=== PATIENT | male | born 1970 | race Caucasian/White ===

== ENCOUNTER 2017-06-22 08:19 | Emergency (ER) | payer MEDICARE, OTHER ==
[~2017-06-22] VITALS: Ht 172.7 cm; Wt 77.3 kg
[~2017-06-22 08:19] MED LIST: ATARAX50 MG PO; BLOOD PRESSURE MED; CHOLESTEROL MED; COZAAR 50MG50 MG/TAB PO; DOXYCYCLINE 10100 MG PO; HCTZ12.5TAB; LEVAQUIN 5500 MG/TA1 PO; NORCO 325 MG-51 TAB PO; PRILOSEC 20MG20 MG PO; PROPRANOLOL60 MG PO; RT ADVAIR 228 DISKUS IH; ZOCOR 40MG40 MG PO; ZOLOFT; ZOLOFT 100MG100 MG PO
[2017-06-22 08:25] VITALS: TEMP 98.5
[2017-06-22] MEDS ORDERED: COZAAR100 MG PO (08:31)
[2017-06-22] MEDS ORDERED: PRILOSEC 20MG20 MG PO (08:31)
[2017-06-22] MEDS ORDERED: MULTI VITAMINS1 TAB PO (08:32)
[2017-06-22] MEDS ORDERED: ALLEGRA 60MG TA60 MG PO (08:33)
[2017-06-22] MEDS ORDERED: LIPITOR 80MG80 MG PO (08:33)
[2017-06-22 09:16] LABS: BASO # 0.1 (0.0-0.2); BASO % 0.6 % (0.0-2.0); EOS % 0.1 % (0-4.0); GRAN # 6.8 (1.4-6.5); GRAN % 78.9 % (42.2-75.2); HEMOGLOBIN 14.4 g/dl (13.5-18.0); LYMPH # 1.2 (1.2-3.4); LYMPH % 13.7 % (20.0-51.0); MEAN CELL VOLUME 95 fl (80.0-100.0); MEAN CORPUSCULAR HEMOGLOBIN 33 pg (27.0-31.0); MEAN CORPUSCULAR HGB CONC 35 g/dl (33.0-37.0); MONO # 0.6 (0.1-0.6); MONO % 6.5 % (1.7-9.3); PLATELET COUNT 168 K/mm3 (130-400); RED BLOOD COUNT 4.33 M/mm3 (4.20-5.60); WHITE BLOOD COUNT 8.6 K/mm3 (4.8-10.8)
[2017-06-22 09:33] LABS: ADJUSTED CALCIUM 8.9 mg/dL (8.4-10.2); ALANINE AMINOTRANSFERASE 99 U/L (21-72); ALBUMIN 5.2 gm/dL (3.5-5.0); ALKALINE PHOSPHATASE 92 U/L (50-136); ANION GAP 18 mmol/L (7-16); BILIRUBIN,TOTAL 1.3 mg/dL (0.0-1.0); BLOOD UREA NITROGEN 3 mg/dL (9-20); CALCIUM 9.9 mg/dL (8.4-10.2); CARBON DIOXIDE 18 mmol/L (22-30); CHLORIDE 100 mmol/L (98-107); CREATININE, serum 0.79 mg/dL (0.66-1.25); GLUCOSE 116 mg/dL (74-106); LIPASE 136 U/L (23-300); POTASSIUM 3.2 mmol/L (3.4-5.0); SALICYLATE 1.8 mg/dL; SODIUM 136 mmol/L (137-145); TOTAL PROTEIN 8.1 gm/dL (6.4-8.2)
[2017-06-22 09:35] LABS: ALCOHOL(ethanol),MEDICAL < 10 mg/dL; C-REACTIVE PROTEIN < 0.5 mg/dL (0.0-0.9)
[2017-06-22 10:09] LABS: COLLECTION METHOD CLEAN CATCH
[2017-06-22 10:22] LABS: PH 7 (5-8); SQUAMOUS EPITHELIAL None Seen /hpf; URINE APPEARANCE Clear; URINE BACTERIA Rare /hpf; URINE BILIRUBIN Negative (NEGATIVE); URINE BLOOD Negative (NEGATIVE); URINE COLOR Yellow; URINE GLUCOSE Negative (NEGATIVE); URINE KETONE 2+ (NEGATIVE); URINE LEUKOCYTE ESTERASE 1+ (NEGATIVE); URINE PROTEIN(semi-quant) Negative (NEGATIVE); URINE RBC 0-2 /hpf; URINE UROBILINOGEN Negative (NEGATIVE); URINE WBC 0-2 /hpf
[2017-06-22 10:27] LABS: AMPHETAMINE URINE NEGATIVE; BARBITURATES URINE NEGATIVE; BENZODIAZEPINES URINE NEGATIVE; BUPRENORPHINE URINE NEGATIVE; METHADONE URINE NEGATIVE; OPIATES URINE NEGATIVE; OXYCODONE URINE NEGATIVE; PHENCYCLIDINE URINE NEGATIVE; PROPOXYPHENE URINE NEGATIVE; THC CANNABINOIDS URINE NEGATIVE; TRICYCLIC ANTIDEPRESS URINE NEGATIVE
[2017-06-22 13:27] VITALS: BP 145/94; PULSE 122
== END 2017-06-22 13:29 ==
LOC: COL.ER 08:19
PROVIDERS: Family Medicine
DX: F10.239 Alcohol dependence with withdrawal, unspecified (principal); I10 Essential (primary) hypertension
CPT/HCPCS: J2060; J2405; J3411; J7030

== ENCOUNTER 2017-07-19 13:06 | Emergency (ER) | payer MEDICARE, OTHER ==
[~2017-07-19] VITALS: Ht 172.7 cm; Wt 77.3 kg
[~2017-07-19 13:06] MED LIST changes: +ALLEGRA 60MG TA60 MG PO; +COZAAR100 MG PO; +LIPITOR 80MG80 MG PO; +MULTI VITAMINS1 TAB PO
[2017-07-19] MEDS ORDERED: APRESOLINE 25MG25 MG PO (13:50)
[2017-07-19] MEDS ORDERED: LEXAPRO 10MG10 MG PO (13:50)
[2017-07-19] MEDS ORDERED: INDERAL40 MG PO (13:51)
[2017-07-19] MEDS ORDERED: NORVASC 10MG10 MG PO (13:51)
[2017-07-19] MEDS ORDERED: [UNRECOGNIZED DRUG - REMARK] PO (13:52)
[2017-07-19] MEDS ORDERED: PRIL40 PO (13:52)
[2017-07-19] MEDS ORDERED: NATURE'S BLEND100 M2 PO (13:53)
[2017-07-19] MEDS ORDERED: COZAAR 50MG50 MG/TAB PO (13:53)
[2017-07-19] MEDS ORDERED: FOLIC ACID 11 MG/TA1 PO (13:53)
[2017-07-19] MEDS ORDERED: MULTIPLE VITAMI1 TA5 PO (13:54)
[2017-07-19 14:04] LABS: INFLUENZA A NEGATIVE; INFLUENZA B NEGATIVE
[2017-07-19 14:17] LABS: BASO # 0.1 (0.0-0.2); EOS # 2.1 (0.0-0.7); EOS % 15.2 % (0-4.0); GRAN # 8.6 (1.4-6.5); GRAN % 62.2 % (42.2-75.2); HEMATOCRIT 38.4 % (42.0-52.0); HEMOGLOBIN 13.6 g/dl (13.5-18.0); LYMPH % 14.1 % (20.0-51.0); MEAN CELL VOLUME 93 fl (80.0-100.0); MEAN CORPUSCULAR HEMOGLOBIN 33 pg (27.0-31.0); MEAN CORPUSCULAR HGB CONC 35 g/dl (33.0-37.0); MEAN PLATELET VOLUME 9.5 fl (7.4-10.4); MONO % 6.9 % (1.7-9.3); PLATELET COUNT 283 K/mm3 (130-400); RED BLOOD COUNT 4.13 M/mm3 (4.20-5.60); REDCELL DISTRIBUTION WIDTH-CV 11.9 % (11.5-14.5)
[2017-07-19 14:30] LABS: ALBUMIN 4.2 gm/dL (3.5-5.0); BILIRUBIN,TOTAL 0.8 mg/dL (0.0-1.0); C-REACTIVE PROTEIN 2.7 mg/dL (0.0-0.9); CALCIUM 9.9 mg/dL (8.4-10.2); CREATININE, serum 0.61 mg/dL (0.66-1.25); POTASSIUM 3.8 mmol/L (3.4-5.0); TOTAL PROTEIN 7.6 gm/dL (6.4-8.2)
[2017-07-19 15:45] LABS: COLLECTION METHOD CLEAN CATCH
[2017-07-19 15:50] LABS: PH 8 (5-8); SQUAMOUS EPITHELIAL None Seen /hpf; URINE APPEARANCE Clear; URINE BACTERIA None Seen /hpf; URINE BILIRUBIN Negative (NEGATIVE); URINE BLOOD Negative (NEGATIVE); URINE COLOR Straw; URINE GLUCOSE Negative (NEGATIVE); URINE KETONE Negative (NEGATIVE); URINE LEUKOCYTE ESTERASE Negative (NEGATIVE); URINE NITRATE Negative (NEGATIVE); URINE PROTEIN(semi-quant) Negative (NEGATIVE); URINE RBC None Seen /hpf; URINE UROBILINOGEN Negative (NEGATIVE)
[2017-07-19] MEDS ORDERED: DOXYCYCLINE 10100 MG PO (16:20)
[2017-07-19] MEDS ORDERED: NORCO 325 MG-51 TAB PO (16:20)
[2017-07-19 16:39] VITALS: BP 127/93; PULSE 68; TEMP 98.7
== END 2017-07-19 16:40 | disposition home or self-care (01) ==
LOC: COL.ER 13:06
PROVIDERS: Nurse Practitioner
DX: M79.1 Myalgia (principal); R51 Headache; I10 Essential (primary) hypertension; F32.9 Major depressive disorder, single episode, unspecified; F41.9 Anxiety disorder, unspecified; F17.210 Nicotine dependence, cigarettes, uncomplicated; Z86.13 Personal history of malaria
CPT/HCPCS: J1170; J7030

== ENCOUNTER 2017-11-23 20:00 | Emergency (ER) | payer MEDICARE, OTHER ==
[~2017-11-23 20:00] MED LIST changes: +APRESOLINE 25MG25 MG PO; +FOLIC ACID 11 MG/TA1 PO; +INDERAL40 MG PO; +LEXAPRO 10MG10 MG PO; +MULTIPLE VITAMI1 TA5 PO; +NATURE'S BLEND100 M2 PO; +NORVASC 10MG10 MG PO; +PRIL40 PO; +[UNRECOGNIZED DRUG - REMARK] PO
[2017-11-23 20:12] VITALS: TEMP 97.1
[2017-11-23 21:52] LABS: BASO # 0.1 (0.0-0.2); BASO % 1.1 % (0.0-2.0); EOS # 0.2 (0.0-0.7); EOS % 2.8 % (0-4.0); GRAN # 2.8 (1.4-6.5); GRAN % 43.3 % (42.2-75.2); LYMPH # 2.8 (1.2-3.4); LYMPH % 43.9 % (20.0-51.0); MEAN CELL VOLUME 96 fl (80.0-100.0); MEAN CORPUSCULAR HEMOGLOBIN 34 pg (27.0-31.0); MEAN CORPUSCULAR HGB CONC 36 g/dl (33.0-37.0); MEAN PLATELET VOLUME 9.9 fl (7.4-10.4); MONO # 0.6 (0.1-0.6); MONO % 8.6 % (1.7-9.3); PLATELET COUNT 191 K/mm3 (130-400); RED BLOOD COUNT 3.81 M/mm3 (4.20-5.60); REDCELL DISTRIBUTION WIDTH-CV 12.5 % (11.5-14.5)
[2017-11-23 21:54] LABS: HEMATOCRIT 36.6 % (42.0-52.0)
[2017-11-23 22:02] LABS: ALANINE AMINOTRANSFERASE 190 U/L (21-72); ALBUMIN 4.3 gm/dL (3.5-5.0); ALKALINE PHOSPHATASE 104 U/L (50-136); ANION GAP 19 mmol/L (7-16); AST,SGOT 326 U/L (15-37); BILIRUBIN,TOTAL 0.8 mg/dL (0.0-1.0); BLOOD UREA NITROGEN 5 mg/dL (9-20); CALCIUM 9.4 mg/dL (8.4-10.2); CARBON DIOXIDE 21 mmol/L (22-30); CHLORIDE 103 mmol/L (98-107); CREATININE, serum 0.68 mg/dL (0.66-1.25); GLUCOSE 78 mg/dL (74-106); LIPASE 230 U/L (23-300); POTASSIUM 3.4 mmol/L (3.4-5.0); SODIUM 142 mmol/L (137-145)
[2017-11-23 22:04] LABS: C-REACTIVE PROTEIN < 0.5 mg/dL (0.0-0.9)
[2017-11-23 22:05] LABS: COLLECTION METHOD CLEAN CATCH
[2017-11-23 22:13] LABS: PH 6 (5-8); SQUAMOUS EPITHELIAL None Seen /hpf; URINE APPEARANCE Clear; URINE BACTERIA None Seen /hpf; URINE BILIRUBIN Negative (NEGATIVE); URINE BLOOD Negative (NEGATIVE); URINE COLOR Yellow; URINE GLUCOSE Negative (NEGATIVE); URINE KETONE Trace (NEGATIVE); URINE LEUKOCYTE ESTERASE Negative (NEGATIVE); URINE NITRATE Negative (NEGATIVE); URINE PROTEIN(semi-quant) Negative (NEGATIVE); URINE RBC 0-2 /hpf
[2017-11-24 00:48] VITALS: BP 133/94; PULSE 86
== END 2017-11-24 00:20 | disposition home or self-care (01) ==
LOC: COL.ER 20:00
PROVIDERS: Emergency Medicine
DX: R10.30 Lower abdominal pain, unspecified (principal); R39.198 Other difficulties with micturition; I10 Essential (primary) hypertension; K21.9 Gastro-esophageal reflux disease without esophagitis; Z88.8 Allergy status to other drugs, medicaments and biological substances
CPT/HCPCS: J1170; J2270; J2405; J7030; Q9967

== ENCOUNTER 2017-12-10 04:09 | Emergency (ER) | payer MEDICARE, OTHER ==
[~2017-12-10] VITALS: Ht 172.7 cm; Wt 75.5 kg
[2017-12-10 04:15] VITALS: TEMP 97
[2017-12-10] MEDS ORDERED: BACTRIM DS 8001 TAB PO (04:24)
[2017-12-10 04:52] LABS: BASO # 0.1 (0.0-0.2); BASO % 1.5 % (0.0-2.0); EOS # 0.1 (0.0-0.7); EOS % 2.5 % (0-4.0); GRAN # 1.6 (1.4-6.5); GRAN % 40.8 % (42.2-75.2); HEMATOCRIT 37.1 % (42.0-52.0); HEMOGLOBIN 12.8 g/dl (13.5-18.0); LYMPH # 1.8 (1.2-3.4); LYMPH % 44.3 % (20.0-51.0); MEAN CELL VOLUME 98 fl (80.0-100.0); MEAN CORPUSCULAR HEMOGLOBIN 34 pg (27.0-31.0); MEAN CORPUSCULAR HGB CONC 35 g/dl (33.0-37.0); MEAN PLATELET VOLUME 9.5 fl (7.4-10.4); MONO # 0.4 (0.1-0.6); MONO % 10.7 % (1.7-9.3); PLATELET COUNT 157 K/mm3 (130-400); RED BLOOD COUNT 3.77 M/mm3 (4.20-5.60); REDCELL DISTRIBUTION WIDTH-CV 12.7 % (11.5-14.5)
[2017-12-10 05:08] LABS: ALANINE AMINOTRANSFERASE 156 U/L (21-72); ALBUMIN 4.3 gm/dL (3.5-5.0); ALKALINE PHOSPHATASE 113 U/L (50-136); ANION GAP 21 mmol/L (7-16); AST,SGOT 221 U/L (15-37); BILIRUBIN,TOTAL 1.2 mg/dL (0.0-1.0); BLOOD UREA NITROGEN 6 mg/dL (9-20); CALCIUM 10.1 mg/dL (8.4-10.2); CARBON DIOXIDE 17 mmol/L (22-30); CHLORIDE 100 mmol/L (98-107); CREATININE, serum 0.76 mg/dL (0.66-1.25); GLUCOSE 108 mg/dL (74-106); POTASSIUM 3.1 mmol/L (3.4-5.0); SODIUM 139 mmol/L (137-145); TOTAL PROTEIN 7.7 gm/dL (6.4-8.2)
[2017-12-10 05:30] LABS: C-REACTIVE PROTEIN < 0.5 mg/dL (0.0-0.9)
[2017-12-10 05:37] LABS: COLLECTION METHOD CLEAN CATCH
[2017-12-10 05:43] LABS: MUCOUS Present /lpf; PH 5 (5-8); SQUAMOUS EPITHELIAL 0-2 /hpf; URINE APPEARANCE Clear; URINE BACTERIA None Seen /hpf; URINE BILIRUBIN Negative (NEGATIVE); URINE BLOOD Negative (NEGATIVE); URINE COLOR Yellow; URINE GLUCOSE Negative (NEGATIVE); URINE KETONE 1+ (NEGATIVE); URINE LEUKOCYTE ESTERASE Negative (NEGATIVE); URINE NITRATE Negative (NEGATIVE); URINE PROTEIN(semi-quant) 1+ (NEGATIVE); URINE RBC 0-2 /hpf
[2017-12-10] MEDS ORDERED: CIPRO 500MG TA500 MG PO (05:53)
[2017-12-10 06:10] VITALS: BP 147/101; PULSE 83
== END 2017-12-10 06:10 | disposition home or self-care (01) ==
LOC: COL.ER 04:09
PROVIDERS: Family Medicine
DX: N41.0 Acute prostatitis (principal); E86.0 Dehydration; I10 Essential (primary) hypertension
CPT/HCPCS: J1885; J7030

== ENCOUNTER 2018-01-29 13:33 | Emergency (ER) | payer MEDICARE, OTHER ==
[~2018-01-29] VITALS: Ht 172.7 cm; Wt 72.7 kg
[~2018-01-29 13:33] MED LIST changes: +BACTRIM DS 8001 TAB PO; +CIPRO 500MG TA500 MG PO
[2018-01-29 13:35] VITALS: TEMP 97.6
[2018-01-29] MEDS ORDERED: PROSCAR 5MG5 MG PO (13:55)
[2018-01-29] MEDS ORDERED: FLOMAX 0.40.4 MG/CAP PO (13:56)
[2018-01-29 14:31] LABS: BASO # 0.1 (0.0-0.2); BASO % 1.4 % (0.0-2.0); EOS # 0.1 (0.0-0.7); EOS % 1.9 % (0-4.0); GRAN # 3.2 (1.4-6.5); GRAN % 54.2 % (42.2-75.2); HEMATOCRIT 37.7 % (42.0-52.0); HEMOGLOBIN 13.1 g/dl (13.5-18.0); LYMPH # 1.8 (1.2-3.4); LYMPH % 30.5 % (20.0-51.0); MEAN CELL VOLUME 97 fl (80.0-100.0); MEAN CORPUSCULAR HEMOGLOBIN 34 pg (27.0-31.0); MEAN CORPUSCULAR HGB CONC 35 g/dl (33.0-37.0); MONO # 0.7 (0.1-0.6); MONO % 11.3 % (1.7-9.3); PLATELET COUNT 207 K/mm3 (130-400); RED BLOOD COUNT 3.89 M/mm3 (4.20-5.60); REDCELL DISTRIBUTION WIDTH-CV 12.4 % (11.5-14.5)
[2018-01-29 14:54] LABS: TRICYCLIC ANTIDEPRESS URINE NEGATIVE
[2018-01-29 15:13] LABS: ALBUMIN 3.6 gm/dL (3.5-5.0); BILIRUBIN,TOTAL 0.9 mg/dL (0.0-1.0); CREATININE, serum 0.58 mg/dL (0.66-1.25); TOTAL PROTEIN 6.7 gm/dL (6.4-8.2)
[2018-01-29 15:31] LABS: POTASSIUM 2.6 mmol/L (3.4-5.0)
[2018-01-29] MEDS ORDERED: K-TAB20 PO (15:55)
[2018-01-29 16:35] VITALS: BP 102/75; PULSE 91
== END 2018-01-29 16:37 | disposition home or self-care (01) ==
LOC: COL.ER 13:33
PROVIDERS: Nurse Practitioner Primary Care
DX: S09.90XA Unspecified injury of head, initial encounter (principal); F10.229 Alcohol dependence with intoxication, unspecified; E87.6 Hypokalemia; K70.10 Alcoholic hepatitis without ascites; I10 Essential (primary) hypertension; F17.210 Nicotine dependence, cigarettes, uncomplicated; K29.60 Other gastritis without bleeding; W18.39XA Other fall on same level, initial encounter; Y90.7 Blood alcohol level of 200-239 mg/100 ml; Y92.009 Unspecified place in unspecified non-institutional (private) residence as the place of occurrence of the external cause

== ENCOUNTER → 2018-04-20 | Outpatient (CLI) | payer MEDICARE, OTHER ==
[~2018-04-20] MED LIST changes: +ATIVAN 1MG T1 MG/TAB PO; +COZAAR 25MG25 MG/TAB PO; +FLOMAX 0.40.4 MG/CAP PO; +K-TAB20 PO; +PROSCAR 5MG5 MG PO; +WELLBUTRIN XL150 MG PO
== END ==
LOC: COL.RAD 13:53
DX: M54.41 Lumbago with sciatica, right side (principal)

== ENCOUNTER 2018-04-21 00:03 | Emergency (ER) | payer MEDICARE, OTHER ==
[~2018-04-21] VITALS: Ht 68 cm; Wt 84.5 kg
[~2018-04-21 00:03] MED LIST changes: -ATIVAN 1MG T1 MG/TAB PO; -COZAAR 25MG25 MG/TAB PO; -WELLBUTRIN XL150 MG PO
[2018-04-21 00:12] VITALS: BP 149/109; TEMP 98
[2018-04-21] MEDS ORDERED: LIPITOR 80MG80 MG PO (00:21)
[2018-04-21] MEDS ORDERED: COZAAR 25MG25 MG/TAB PO (00:22)
[2018-04-21] MEDS ORDERED: ATIVAN 1MG T1 MG/TAB PO (00:22)
[2018-04-21] MEDS ORDERED: WELLBUTRIN XL150 MG PO (00:23)
[2018-04-21 01:12] LABS: BASO # 0.1 (0.0-0.2); EOS # 0.1 (0.0-0.7); EOS % 0.5 % (0-4.0); GRAN % 56.1 % (42.2-75.2); HEMATOCRIT 43.8 % (42.0-52.0); HEMOGLOBIN 15.5 g/dl (13.5-18.0); LYMPH # 3.9 (1.2-3.4); LYMPH % 36.1 % (20.0-51.0); MEAN CELL VOLUME 88 fl (80.0-100.0); MEAN CORPUSCULAR HEMOGLOBIN 31 pg (27.0-31.0); MEAN CORPUSCULAR HGB CONC 35 g/dl (33.0-37.0); MEAN PLATELET VOLUME 8.7 fl (7.4-10.4); MONO # 0.6 (0.1-0.6); MONO % 5.9 % (1.7-9.3); PLATELET COUNT 253 K/mm3 (130-400); REDCELL DISTRIBUTION WIDTH-CV 11.8 % (11.5-14.5)
[2018-04-21 01:19] LABS: PROTHROMBIN TIME 11.1 SECONDS (9.7-12.8)
[2018-04-21 01:24] LABS: ALANINE AMINOTRANSFERASE 51 U/L (21-72); ALBUMIN 4.7 gm/dL (3.5-5.0); ALCOHOL(ethanol),MEDICAL 284 mg/dL; ALKALINE PHOSPHATASE 76 U/L (50-136); ANION GAP 16 mmol/L (7-16); AST,SGOT 68 U/L (15-37); BILIRUBIN,TOTAL 0.5 mg/dL (0.0-1.0); BLOOD UREA NITROGEN 9 mg/dL (9-20); CALCIUM 9.3 mg/dL (8.4-10.2); CARBON DIOXIDE 21 mmol/L (22-30); CHLORIDE 102 mmol/L (98-107); CREATININE, serum 0.68 mg/dL (0.66-1.25); GLUCOSE 89 mg/dL (74-106); POTASSIUM 3.9 mmol/L (3.4-5.0); SODIUM 139 mmol/L (137-145); TOTAL PROTEIN 8.4 gm/dL (6.4-8.2)
[2018-04-21 01:34] LABS: TROPONIN-I < 0.012 ng/mL (0.000-0.034)
[2018-04-21 04:11] VITALS: PULSE 120
== END 2018-04-21 04:36 | disposition home or self-care (01) ==
LOC: COL.ER 00:03
PROVIDERS: Emergency Medicine
DX: F10.229 Alcohol dependence with intoxication, unspecified (principal); F17.210 Nicotine dependence, cigarettes, uncomplicated; I10 Essential (primary) hypertension; F32.9 Major depressive disorder, single episode, unspecified; F43.10 Post-traumatic stress disorder, unspecified; F41.9 Anxiety disorder, unspecified; Y90.8 Blood alcohol level of 240 mg/100 ml or more

== ENCOUNTER 2018-08-13 10:15 | Outpatient (RCR) | payer MEDICARE, OTHER ==
[~2018-08-13 10:15] MED LIST changes: +ATIVAN 1MG T1 MG/TAB PO; +COZAAR 25MG25 MG/TAB PO; +WELLBUTRIN XL150 MG PO
== END 2018-08-15 | disposition home or self-care (01) ==
LOC: MKS.ESL.PT
DX: M54.41 Lumbago with sciatica, right side (principal); M47.9 Spondylosis, unspecified
CPT/HCPCS: G0283-GP; G8978-GP; G8979-GP

== ENCOUNTER → 2018-10-26 | Outpatient (CLI) | payer MEDICARE, OTHER ==
[~2018-10-26] MED LIST changes: +CATAPRES 0.1MG0.1 MG; +CATAPRES 0.1MG0.1 MG PO; +FLAGYL500 MG PO; +THIAMINE 1100 MG/TAB PO; +ZITHROMAX500 M2 PO
== END ==
LOC: MHCPAIN 08:00
DX: G89.29 Other chronic pain (principal); M47.817 Spondylosis without myelopathy or radiculopathy, lumbosacral region; M54.16 Radiculopathy, lumbar region; M53.3 Sacrococcygeal disorders, not elsewhere classified
CPT/HCPCS: G0463

== ENCOUNTER → 2018-11-09 | Outpatient (CLI) | payer MEDICARE, OTHER | LOC: MHCPAIN 08:57 | DX: M79.18 Myalgia, other site (principal); M54.16 Radiculopathy, lumbar region | CPT/HCPCS: J1040 ==

== ENCOUNTER → 2019-02-08 | Outpatient (CLI) | payer MEDICARE, OTHER | LOC: MHCPAIN 08:53 | DX: G89.29 Other chronic pain (principal); M47.817 Spondylosis without myelopathy or radiculopathy, lumbosacral region; M54.16 Radiculopathy, lumbar region; M53.3 Sacrococcygeal disorders, not elsewhere classified | CPT/HCPCS: G0463 ==

== ENCOUNTER → 2019-03-08 | Outpatient (CLI) | payer MEDICARE, OTHER | LOC: MHCPAIN 14:28 | DX: M47.817 Spondylosis without myelopathy or radiculopathy, lumbosacral region (principal); M54.16 Radiculopathy, lumbar region | CPT/HCPCS: G0260; J1040 ==

== ENCOUNTER 2019-03-09 10:05 | Emergency (ER) | payer MEDICARE, OTHER ==
[~2019-03-09] VITALS: Ht 172.7 cm; Wt 75.0 kg
[2019-03-09 10:09] VITALS: TEMP 98.4
[2019-03-09] MEDS ORDERED: NORCO 325 MG-51 TAB PO (11:03)
[2019-03-09 11:15] VITALS: BP 102/70; PULSE 71
== END 2019-03-09 11:25 | disposition home or self-care (01) ==
LOC: COL.ER 10:05
DX: S93.601A Unspecified sprain of right foot, initial encounter (principal); X50.1XXA Overexertion from prolonged static or awkward postures, initial encounter; Y92.009 Unspecified place in unspecified non-institutional (private) residence as the place of occurrence of the external cause

== ENCOUNTER 2019-04-19 19:41 | Emergency (ER) | payer MEDICARE, OTHER ==
[~2019-04-19] VITALS: Ht 172.7 cm; Wt 73.3 kg
[2019-04-19 20:15] VITALS: BP 126/84; TEMP 98.5
[2019-04-19] MEDS ORDERED: CEPHALEXIN500 M1 PO (22:33)
[2019-04-19 22:47] VITALS: PULSE 87
== END 2019-04-19 22:47 | disposition home or self-care (01) ==
LOC: COL.ER 19:41
DX: S01.81XA Laceration without foreign body of other part of head, initial encounter (principal); S09.90XA Unspecified injury of head, initial encounter; I10 Essential (primary) hypertension; E78.5 Hyperlipidemia, unspecified; Z23 Encounter for immunization; W19.XXXA Unspecified fall, initial encounter; Y92.009 Unspecified place in unspecified non-institutional (private) residence as the place of occurrence of the external cause

== ENCOUNTER 2019-05-24 20:22 | Emergency (ER) | payer MEDICARE, OTHER ==
[~2019-05-24] VITALS: Ht 172.7 cm; Wt 72.7 kg
[~2019-05-24 20:22] MED LIST changes: +CEPHALEXIN500 M1 PO
[2019-05-24 20:23] VITALS: TEMP 97.8
[2019-05-24 20:53] LABS: BASO # 0.1 (0.0-0.2); BASO % 1.2 % (0.0-2.0); EOS # 0.2 (0.0-0.7); EOS % 3.9 % (0-4.0); GRAN # 1.8 (1.4-6.5); GRAN % 42.6 % (42.2-75.2); HEMOGLOBIN 12.2 g/dl (13.5-18.0); LYMPH # 1.8 (1.2-3.4); LYMPH % 43.6 % (20.0-51.0); MEAN CELL VOLUME 101 fl (80.0-100.0); MEAN CORPUSCULAR HEMOGLOBIN 35 pg (27.0-31.0); MEAN CORPUSCULAR HGB CONC 35 g/dl (33.0-37.0); MONO # 0.4 (0.1-0.6); MONO % 8.5 % (1.7-9.3); PLATELET COUNT 95 K/mm3 (130-400); REDCELL DISTRIBUTION WIDTH-CV 12.9 % (11.5-14.5)
[2019-05-24 20:54] LABS: HEMATOCRIT 35.4 % (42.0-52.0)
[2019-05-24 21:06] LABS: ALBUMIN 3.7 gm/dL (3.5-5.0); BILIRUBIN,TOTAL 0.8 mg/dL (0.0-1.0); CALCIUM 8.9 mg/dL (8.4-10.2); CREATININE, serum 0.63 (0.66-1.25); POTASSIUM 3.4 mmol/L (3.4-5.0); TOTAL PROTEIN 6.8 gm/dL (6.4-8.2)
[2019-05-25 02:25] VITALS: BP 119/80; PULSE 80
== END 2019-05-25 02:37 | disposition home or self-care (01) ==
LOC: COL.ER 20:22
PROVIDERS: Emergency Medicine
DX: S00.93XA Contusion of unspecified part of head, initial encounter (principal); F10.220 Alcohol dependence with intoxication, uncomplicated; F17.210 Nicotine dependence, cigarettes, uncomplicated; I10 Essential (primary) hypertension; E78.5 Hyperlipidemia, unspecified; K21.9 Gastro-esophageal reflux disease without esophagitis; R40.2412 Glasgow coma scale score 13-15, at arrival to emergency department; W19.XXXA Unspecified fall, initial encounter; W22.8XXA Striking against or struck by other objects, initial encounter; Y90.8 Blood alcohol level of 240 mg/100 ml or more; Y92.009 Unspecified place in unspecified non-institutional (private) residence as the place of occurrence of the external cause

== ENCOUNTER → 2019-06-28 | Outpatient (CLI) | payer MEDICARE, OTHER | LOC: MHCPAIN 09:57 | DX: M54.16 Radiculopathy, lumbar region (principal); M53.3 Sacrococcygeal disorders, not elsewhere classified | CPT/HCPCS: G0463 ==

== ENCOUNTER 2019-12-30 14:15 | Inpatient (IN) | payer MEDICARE, OTHER ==
[~2019-12-30] VITALS: Ht 172.7 cm; Wt 77.0 kg
[~2019-12-30 14:15] MED LIST changes: +ATARAX 25MG25 MG/TAB PO; +DESYREL 50MG50 MG PO; +IMODIUM 2MG CAPS2 MG PO; +PAXIL40 MG PO; +SINGULAIR 110 MG/TAB PO; +ZYRTEC 10MG10 MG PO
[2019-12-30 15:12] LABS: BASO % 0.7 % (0.0-2.0); EOS # 0.1 (0.0-0.7); EOS % 0.8 % (0-4.0); GRAN # 3.6 (1.4-6.5); GRAN % 58.1 % (42.2-75.2); LYMPH # 1.9 (1.2-3.4); LYMPH % 31.2 % (20.0-51.0); MEAN CELL VOLUME 101 fl (80.0-100.0); MEAN CORPUSCULAR HGB CONC 34 g/dl (33.0-37.0); MEAN PLATELET VOLUME 10.1 fl (7.4-10.4); MONO # 0.5 (0.1-0.6); MONO % 8.7 % (1.7-9.3); PLATELET COUNT 90 K/mm3 (130-400); RED BLOOD COUNT 2.59 M/mm3 (4.20-5.60); REDCELL DISTRIBUTION WIDTH-CV 15.3 % (11.5-14.5)
[2019-12-30 15:15] LABS: HEMATOCRIT 26.2 % (42.0-52.0); MEAN CORPUSCULAR HEMOGLOBIN 35 pg (27.0-31.0)
[2019-12-30 15:28] LABS: ALBUMIN 3.1 gm/dL (3.5-5.0); BILIRUBIN,TOTAL 2.5 mg/dL (0.0-1.0); C-REACTIVE PROTEIN 2.2 mg/dL (0.0-0.9); CREATININE, serum 0.62 (0.66-1.25); TOTAL PROTEIN 6.1 gm/dL (6.4-8.2)
[2019-12-30 15:33] LABS: POTASSIUM 2.8 mmol/L (3.4-5.0)
[2019-12-30 16:43] LABS: IRON,SERUM 118 ug/dL (35-150)
[2019-12-30 16:52] LABS: TOTAL IRON BINDING CAPACITY 206 ug/dL (261-462)
[2019-12-30 17:07] LABS: INR 1.3 (0.8-3.0); PROTHROMBIN TIME 14.4 SECONDS (9.7-12.8)
[2019-12-30 17:18] LABS: COLLECTION METHOD CLEAN CATCH
[2019-12-30 17:23] LABS: PH 7 (5-8); SQUAMOUS EPITHELIAL None Seen /hpf; URINE APPEARANCE Clear; URINE BACTERIA None Seen /hpf; URINE BILIRUBIN Negative (NEGATIVE); URINE BLOOD Negative (NEGATIVE); URINE COLOR Straw; URINE GLUCOSE Negative (NEGATIVE); URINE KETONE Trace (NEGATIVE); URINE LEUKOCYTE ESTERASE Negative (NEGATIVE); URINE NITRATE Negative (NEGATIVE); URINE PROTEIN(semi-quant) Negative (NEGATIVE); URINE RBC 0-2 /hpf; URINE UROBILINOGEN Negative (NEGATIVE)
[2019-12-30] MEDS ORDERED: ULTRAM 50MG TAB50 MG PO (17:44)
[2019-12-30] MEDS ORDERED: NICODERM C21 MG/PATC TD (17:45)
[2019-12-30] MEDS ORDERED: LIPITOR 80MG80 MG PO (17:46)
[2019-12-30] MEDS ORDERED: VISTARIL 2525 MG/CAP PO (17:47)
--- NOTE | 2019-12-30 18:32 | NUR ---
Patient to room 317 by wheelchair from ER. A&Ox3, reporting pain in abdomen 02/19. VSS. IV CDI, fluids infusing. Oriented patient to location and call light. Detox protocol in place. No further needs expressed from patient. Call light within reach. Bed alarm on
[2019-12-30 18:40] VITALS: BP 123/82; PULSE 79; TEMP 98.6
[2019-12-30 19:20] VITALS: BP 137/88; PULSE 82; TEMP 98.4
--- NOTE | 2019-12-30 20:00 | NUR ---
Received report from RAKESH Linn. A/Ox4. c/o lower abdomen pain, rate 7-8/10, prn pain meds administered. Pt verbalized relief with pain meds. IV to LAC intact w/o complications, fluid infusing. tele monitor in place. Tremors observed to BUE. Ambulatory. Denies nausea. Needs met. Call light within reach. Remain NPO.
[2019-12-30 21:56] VITALS: BP 148/89; PULSE 78; TEMP 98.1
[2019-12-30 23:46] VITALS: BP 159/98; PULSE 89; TEMP 98.1
[2019-12-31] VITALS (12 sets, daily range): BP systolic 112–150; BP diastolic 75–95; PULSE 70–111; TEMP 98.3–99.1
--- NOTE | 2019-12-31 05:56 | NUR ---
Meds administered as ordered. PRN pain meds administered as requested by pt for abdomen pain. PRN 0.5mg ativan administered for ciwa score of 4. Pt was cooperative with care. Ambulatory. Stool sample collected and sent to lab. Needs attended too. Remained NPO. Call light within reach.
--- NOTE | 2019-12-31 07:31 | NUR ---
Report given to Brigid Power and Brigid Del Rosario.
[2019-12-31 07:36] LABS: BASO % 0.6 % (0.0-2.0); EOS # 0.1 (0.0-0.7); EOS % 3.5 % (0-4.0); GRAN # 1.7 (1.4-6.5); GRAN % 49.5 % (42.2-75.2); LYMPH # 1.3 (1.2-3.4); LYMPH % 37.6 % (20.0-51.0); MEAN CELL VOLUME 104 fl (80.0-100.0); MEAN CORPUSCULAR HGB CONC 34 g/dl (33.0-37.0); MEAN PLATELET VOLUME 10.7 fl (7.4-10.4); MONO # 0.3 (0.1-0.6); MONO % 8.2 % (1.7-9.3); PLATELET COUNT 63 K/mm3 (130-400); RED BLOOD COUNT 2.59 M/mm3 (4.20-5.60); REDCELL DISTRIBUTION WIDTH-CV 15.4 % (11.5-14.5)
[2019-12-31 07:43] LABS: HEMATOCRIT 26.8 % (42.0-52.0); HEMOGLOBIN 9.2 g/dl (13.5-18.0); MEAN CORPUSCULAR HEMOGLOBIN 36 pg (27.0-31.0)
[2019-12-31 07:59] LABS: ALBUMIN 3.2 gm/dL (3.5-5.0); BILIRUBIN,TOTAL 2.8 mg/dL (0.0-1.0); CALCIUM 7.6 mg/dL (8.4-10.2); CREATININE, serum 0.62 (0.66-1.25); TOTAL PROTEIN 6.4 gm/dL (6.4-8.2)
[2019-12-31 14:23] LABS: CLOSTRIDIUM DIFF A/B NEG; CLOSTRIDIUM DIFF A/B INTERP No C.diff present
[2019-12-31 16:57] LABS: HEPATITIS B CORE AB,TOTAL Negative (()); HEPATITIS B SURFACE ANTIBODY 674.9 (()); HEPATITIS B SURFACE ANTIGEN Negative (Negative); HEPATITIS C VIRUS ANTIBODY Negative (Negative)
--- NOTE | 2019-12-31 17:54 | NUR ---
Pt assessment completed and charted, alert, oriented, roomair. Meds given as per SEP. No N/V/D, numbness, tingling, SOB as per pt at this time. Pain meds provided as per SEP. Pt scored 5 on CIWA scale today at 10 am and ativan o.5 mg was given. One episode of diarrhoea this afternoon. I/V canula flushed without complications. No further needs at this time.
--- NOTE | 2019-12-31 19:14 | NUR ---
I/V LR is running without complications. Pt stated he had second episode of diarrhoea of the day. Pt is asking for ativan, but did not score enough according to CWIS scale. Gave him morphin and pt does not have any needs at this time.
--- NOTE | 2019-12-31 20:45 | NUR ---
Resting in bed. Assessment complete. Lungs clear. Heart sounds normal. Bowels active x4. Pulses strong throughout. No edema noted. IV left AC without complications. Reports 6/10 ABD pain at this time. Provided with PRN morphine. Denies needs. Call light in reach.
--- NOTE | 2019-12-31 21:53 | NUR ---
Patient would like trazodone dosing changed to 1-2 tablets at bedtime. Reports home prescription states may take second tablet if needed. Per Rita RUBIO okay to change to 1-2 tablet.
[2020-01-01] VITALS (12 sets, daily range): BP systolic 105–155; BP diastolic 73–97; PULSE 78–111; TEMP 97.4–99.3
--- NOTE | 2020-01-01 00:15 | NUR ---
Resting in bed. Denies needs. Reports 3/10 ABD pain. Denies need for intervention. Call light in reach.
--- NOTE | 2020-01-01 04:31 | NUR ---
Resting in bed. Denies needs. Reports 3/ ABD pain. Denies need for intervention at this time. Call light in reach.
--- NOTE | 2020-01-01 06:20 | NUR ---
Patient required x1 dose of morphine and ativan throughout night. Scored 4-7 on detox scale. Otherwise uneventful night. Resting in bed this AM. Call light in reach.
[2020-01-01 06:30] LABS: MEAN CELL VOLUME 104 fl (80.0-100.0); MEAN CORPUSCULAR HGB CONC 34 g/dl (33.0-37.0); MEAN PLATELET VOLUME 11.1 fl (7.4-10.4); PLATELET COUNT 60 K/mm3 (130-400); RED BLOOD COUNT 2.42 M/mm3 (4.20-5.60); REDCELL DISTRIBUTION WIDTH-CV 14.6 % (11.5-14.5)
[2020-01-01 06:38] LABS: HEMATOCRIT 25.1 % (42.0-52.0); HEMOGLOBIN 8.4 g/dl (13.5-18.0); MEAN CORPUSCULAR HEMOGLOBIN 35 pg (27.0-31.0)
[2020-01-01 06:47] LABS: ALANINE AMINOTRANSFERASE 44 U/L (4-49); ALBUMIN 2.8 gm/dL (3.5-5.0); ALKALINE PHOSPHATASE 265 U/L (50-136); ANION GAP 5 mmol/L (7-16); AST,SGOT 165 U/L (15-37); CALCIUM 8.1 mg/dL (8.4-10.2); CARBON DIOXIDE 26 mmol/L (22-30); CHLORIDE 102 mmol/L (98-107); CREATININE, serum 0.54 (0.66-1.25); GLUCOSE 87 mg/dL (74-106); POTASSIUM 3.4 mmol/L (3.4-5.0); SODIUM 133 mmol/L (137-145); TOTAL PROTEIN 5.8 gm/dL (6.4-8.2)
--- NOTE | 2020-01-01 06:55 | NUR ---
Report given to RAKESH Power
[2020-01-01 07:00] LABS: BLOOD UREA NITROGEN < 2 mg/dL (9-20)
[2020-01-01 08:36] LABS: BAND 1 % (0-10); EOSINOPHIL 4 % (0-4); LYMPHOCYTE 27 % (20.0-51.0); NEUTROPHILS 57 % (42.0-75.2)
[2020-01-01 08:37] LABS: ANISOCYTOSIS 1+; PLATELET ESTIMATE DECREASED (NORMAL)
--- NOTE | 2020-01-01 14:49 | NUR ---
Plan: To return home with Marie [phone] as care support and EMR. Patient reports that he does have a DPOA and it is his . Patient resides in [facility]. Assess: SW met with patient at his bedside. Patient reports that he does not utilize any DME and that his PCP is Dr. Butler and [facility] Patient reports that he has an upcoming appointment with Dr. Butler in February. Patient indicates that [facility] with no concerns. Patient declined a need for [facility] at this time. No additional concerns noted at this time.
--- NOTE | 2020-01-01 18:50 | NUR ---
Pt assessment completed and charted, alert, oriented, roomair. Meds provided as per MAR, PRN pain medication provided. I/V line flushed without complications. No N/V, tingling, numbness, SOB as per pt. Monitored him on CWIS scale. Pt has colonoscopy scheduled for tomorrow morning, bowel prep started, had bowel movement couple of times. No further needs at this time.
[2020-01-02] VITALS (14 sets, daily range): BP systolic 111–154; BP diastolic 68–98; PULSE 16–109; TEMP 97.7–99.3
[2020-01-02 06:05] LABS: MEAN CELL VOLUME 106 fl (80.0-100.0); MEAN CORPUSCULAR HGB CONC 33 g/dl (33.0-37.0); MEAN PLATELET VOLUME 11.1 fl (7.4-10.4); PLATELET COUNT 73 K/mm3 (130-400); RED BLOOD COUNT 2.31 M/mm3 (4.20-5.60)
[2020-01-02 06:08] LABS: HEMATOCRIT 24.4 % (42.0-52.0); MEAN CORPUSCULAR HEMOGLOBIN 35 pg (27.0-31.0)
[2020-01-02 06:22] LABS: ALANINE AMINOTRANSFERASE 44 U/L (4-49); ALBUMIN 2.8 gm/dL (3.5-5.0); ALKALINE PHOSPHATASE 252 U/L (50-136); ANION GAP 5 mmol/L (7-16); AST,SGOT 163 U/L (15-37); BILIRUBIN,TOTAL 2.7 mg/dL (0.0-1.0); CALCIUM 8.5 mg/dL (8.4-10.2); CARBON DIOXIDE 28 mmol/L (22-30); CHLORIDE 102 mmol/L (98-107); CREATININE, serum 0.57 (0.66-1.25); GLUCOSE 106 mg/dL (74-106); POTASSIUM 3.9 mmol/L (3.4-5.0); SODIUM 135 mmol/L (137-145); TOTAL PROTEIN 5.7 gm/dL (6.4-8.2)
[2020-01-02 06:23] LABS: BLOOD UREA NITROGEN < 2 mg/dL (9-20)
[2020-01-02 06:30] LABS: BAND 12 % (0-10); EOSINOPHIL 2 % (0-4); LYMPHOCYTE 26 % (20.0-51.0); NEUTROPHILS 57 % (42.0-75.2); PLATELET ESTIMATE DECREASED (NORMAL)
--- NOTE | 2020-01-02 06:30 | NUR ---
Patient has been up several times during the night. Everytime he gets up to the bathroom his heart rate jumps up. Rita RUBIO is aware. It does not stay up that high long enough to get an EKG. It is only with getting up out of bed. His stool was clear and blue from the gatorade this morning. Minimal complaints of pain during the night. No coplaints of nausea during the night.
--- NOTE | 2020-01-02 07:20 | NUR ---
Patient is resting quietly in bed, denies pain. Call light and personal items are within reach.
--- NOTE | 2020-01-02 18:56 | NUR ---
Patient is resting in bed, did take pain medication earlier per his requsest. Was effective, no other needs identified.
--- NOTE | 2020-01-02 20:50 | NUR ---
Pt. sitting up in bed at this time. Pt. is A&OX3, assessment complete. IV to rt. wrist patent, IV fluids infusing per orders. Pt. denies further needs, call light within reach.
[2020-01-03] VITALS (10 sets, daily range): BP systolic 119–144; BP diastolic 81–99; PULSE 82–113; TEMP 97.8–100.2
[2020-01-03 01:44] LABS: HEPATITIS AB (HAV) IGG INDEX 10.15 Index (<=1.00)
[2020-01-03 03:23] LABS: FOLATE (FOLIC ACID) 6.8 ng/mL (>=4.0)
[2020-01-03 07:58] LABS: BASO % 0.7 % (0.0-2.0); EOS # 0.1 (0.0-0.7); GRAN # 1.9 (1.4-6.5); GRAN % 63.1 % (42.2-75.2); LYMPH # 0.6 (1.2-3.4); MEAN CELL VOLUME 106 fl (80.0-100.0); MEAN CORPUSCULAR HGB CONC 34 g/dl (33.0-37.0); MEAN PLATELET VOLUME 10.9 fl (7.4-10.4); MONO # 0.4 (0.1-0.6); MONO % 12.2 % (1.7-9.3); PLATELET COUNT 76 K/mm3 (130-400); RED BLOOD COUNT 2.37 M/mm3 (4.20-5.60)
--- NOTE | 2020-01-03 08:00 | NUR ---
PT REPORT RCVD FROM RAKESH MIGUEL. PT IS SLEEPING AT THIS TIME. EASILY ARROUSED TO VOICE. PT CURRENTLY SCORED 3 ON THE DETOX SCALE. NO COMPLAINTS AT THIS TIME. ASSESSMENT COMPLETED. PT IS DROWSY, AND FALLS ASLEEP DURING ASSESSMENT. HE STATES HE WILL TRY EATING SOMETHING. NO FURTHER CONCERNS AT THIS TIME. CALL LIGHT WITHIN REACH.
[2020-01-03 08:07] LABS: HEMATOCRIT 25.1 % (42.0-52.0); HEMOGLOBIN 8.4 g/dl (13.5-18.0); MEAN CORPUSCULAR HEMOGLOBIN 35 pg (27.0-31.0)
[2020-01-03 08:21] LABS: ALANINE AMINOTRANSFERASE 49 U/L (4-49); ALBUMIN 2.7 gm/dL (3.5-5.0); ALKALINE PHOSPHATASE 258 U/L (50-136); ANION GAP 5 mmol/L (7-16); AST,SGOT 169 U/L (15-37); BILIRUBIN,TOTAL 2.7 mg/dL (0.0-1.0); CALCIUM 8.2 mg/dL (8.4-10.2); CARBON DIOXIDE 26 mmol/L (22-30); CHLORIDE 101 mmol/L (98-107); CREATININE, serum 0.56 (0.66-1.25); GLUCOSE 108 mg/dL (74-106); MAGNESIUM 1.6 mg/dL (1.6-2.3); POTASSIUM 3.6 mmol/L (3.4-5.0); SODIUM 131 mmol/L (137-145); TOTAL PROTEIN 5.7 gm/dL (6.4-8.2)
[2020-01-03 08:27] LABS: BLOOD UREA NITROGEN < 2 mg/dL (9-20)
--- NOTE | 2020-01-03 10:28 | NUR ---
PT CURRENTLY SLEEPING, C/O PAIN MEDICATION ADMINISTERED PER SEP. PT SCORED A 6 ON THE DETOX PROTOCOL. 1MG ATIVAN TAB ADMINISTERED AT THIS TIME. PT STATED HE IS STILL HAVING DIARRHEA FROM THE [facility] BOWEL PREP GIVEN BEFORE HIS EGD/COLON. WILL ENDORSE COMPLAINT TO PROVIDER. NO FURTHER CONCERNS AT THIS TIME. PT CALL LIGHT WITHIN REACH.
--- NOTE | 2020-01-03 20:55 | NUR ---
Pt assessment completed and documented. Pt resting in bed at this time with no s/s of pain noted. CIWA completed per protocol- Pt very drowsy at this time and will only arouse to touch. Holding ativan at this time-will reassess CIWA at 2200. INT to right wrist patent and without complications. Pt denies any needs at this time. Fall precautions in place. Bed alarm on. Call light within reach. Will continue to monitor.
--- NOTE | 2020-01-03 22:21 | NUR ---
VIANCA COMPLETED- PT CONTINUES TO BE VERY DROWSY AT THIS TIME AND WILL ONLY AROUSE TO VOICE AND TOUCH BUT WILL FALL ASLEEP MID CONVERSATION. NO ATIVAN GIVEN AT THIS TIME. WILL REASSESS AT 0000. PT ALERT AND ORIENTED TO SELF AND TIME. PT DISORIENTED TO SITUATION AND PLACE STATING THAT HE IS IN A HOSPITAL IN [place]. PT DENIES ANY NEEDS AT THIS TIME. FALL PRECAUTIONS IN PLACE. BED ALARM ON. CALL LIGHT WITHIN REACH. WILL CONTINUE TO MONITOR.
--- NOTE | 2020-01-03 22:32 | NUR ---
Up to restroom and returned to bed. Gait unsteady. Incontinent of bowel and bladder. Cares provided. Call light in reach.
[2020-01-04] VITALS (11 sets, daily range): BP systolic 104–151; BP diastolic 69–93; PULSE 82–100; TEMP 97.6–99.2
--- NOTE | 2020-01-04 01:53 | NUR ---
Pt assisted to bathroom and back to bed at this time. Incontinent of bowel. Gait belt utilized due to unsteady gait. Vital signs obtained per [facility] protocol. Pt denies needs. Fall precaution in place. Bed alarm on. Call light within reach.
--- NOTE | 2020-01-04 05:18 | NUR ---
Pt had uneventful night. Pt rested in bed throughout the night without any s/s of pain noted. Pt assisted to the bathroom a few times during the night with gait belt due to unsteady gait. CIWA assessed q2hr and oral ativan given when needed per physcial assessment/orders. INT to right wrist without complications. Pt denies any other needs. Fall precautions in place. Bed alarm on. Call light within reach.
--- NOTE | 2020-01-04 07:00 | NUR ---
Report given to RAKESH Zeng
[2020-01-04 07:24] LABS: BASO % 0.9 % (0.0-2.0); EOS # 0.1 (0.0-0.7); EOS % 3.8 % (0-4.0); GRAN # 1.9 (1.4-6.5); GRAN % 54.9 % (42.2-75.2); LYMPH # 0.9 (1.2-3.4); LYMPH % 25.1 % (20.0-51.0); MEAN CELL VOLUME 105 fl (80.0-100.0); MEAN CORPUSCULAR HGB CONC 34 g/dl (33.0-37.0); MONO # 0.5 (0.1-0.6); MONO % 14.7 % (1.7-9.3); PLATELET COUNT 91 K/mm3 (130-400); RED BLOOD COUNT 2.66 M/mm3 (4.20-5.60); REDCELL DISTRIBUTION WIDTH-CV 16.1 % (11.5-14.5)
--- NOTE | 2020-01-04 07:24 | NUR ---
Report rcvd from RAKESH Dodd.
[2020-01-04 07:25] LABS: ANION GAP 6 mmol/L (7-16); CALCIUM 8.3 mg/dL (8.4-10.2); CARBON DIOXIDE 25 mmol/L (22-30); CHLORIDE 101 mmol/L (98-107); CREATININE, serum 0.59 (0.66-1.25); GLUCOSE 100 mg/dL (74-106); POTASSIUM 3.6 mmol/L (3.4-5.0); SODIUM 131 mmol/L (137-145)
--- NOTE | 2020-01-04 07:26 | NUR ---
Pt is currently in bed sleeping. Very drowsy at this time. Will wake to touch, and sound, but go right back to sleep. He has no c/o pain at this time. Assessment compelted. Pt call light within reach, no further concerns at this time.
[2020-01-04 07:29] LABS: HEMATOCRIT 27.8 % (42.0-52.0); HEMOGLOBIN 9.4 g/dl (13.5-18.0); MEAN CORPUSCULAR HEMOGLOBIN 35 pg (27.0-31.0)
[2020-01-04 07:52] LABS: BLOOD UREA NITROGEN < 2 mg/dL (9-20)
--- NOTE | 2020-01-04 08:18 | NUR ---
Pt fell, charge nurse in the room and attempted to catch him. Pt sustained no injuries. Was incontinent of bowel and bladder. Pt states he is in no pain, and not injured at this time. BP is 125/87. Call light within reach. No further concerns.
--- NOTE | 2020-01-04 15:53 | NUR ---
Bridal Stylist Sales Consultant attended clinical rounds with the team. PT ordered for patient. SW followed up with patient to discuss outpatient alcohol resources. Patient states [facility] but that those things have been on hold due to COVID. SW provided list of local outpatient resources and AA meetings. Patient states he intends to start with [facility] services once they begin again. SW to continue to follow.
--- NOTE | 2020-01-04 17:17 | NUR ---
at bedside. She brought in an application Dr. Lloyd and Sid filled out together. It states that he has poor balance, and that he has limited ambulation due to imbalance. It also states that he no longer takes standing showers, that his bathes him due to his balance issues. This document provided by the shows that the patient is currently at baseline. Physical therapy evaluation today states he is not safe to go home. It is evident that the , Marie, is in need of respite, and that has been why she has been absent for the majority of the weekend. The is ready to find a place for him to go as he is going to need more involved care than the spouse can currently give. Marie was given the paperwork provided by Raven ANN. Marie now has Raven's phone number and will be making a phone call today or tomorrow. This RN had a lengthy bedside conversation with Marie while pt was in and out of sleep. No further concerns at this time.
--- NOTE | 2020-01-04 19:16 | NUR ---
Report given to RAKESH Dodd and RAKESH Aragon.
--- NOTE | 2020-01-04 21:15 | NUR ---
Pt assessment completed and documented. Pt sitting up on the side of his bed at this time. Pt alert and oriented x4. Complaints of "throbbing" pain to his lower abdomen that is rated a 4/10. INT to right wrist patent and free of complications. Pt denies any other needs at this time. Fall precautions in place. Bed alarm on. Call light within reach. Will continue to monitor.
[2020-01-05 00:25] VITALS: BP 136/92; PULSE 94; TEMP 99.2
--- NOTE | 2020-01-05 02:02 | NUR ---
Pt resting in bed at this time. No signs of discomfort noted. Fall precautions in place. Bed alarm on. Call light within reach
[2020-01-05 02:29] VITALS: BP 131/89; PULSE 89; TEMP 99.2
[2020-01-05 03:32] VITALS: BP 142/96; PULSE 94; TEMP 97.7
--- NOTE | 2020-01-05 05:26 | NUR ---
Pt had uneventful shift. Pt rested on and off throughout the night. Up to bathroom multiple times throughout the night with assistance and a gait belt. Complaints of "throbbing" pain to lower abdomen but denied needs for pain medication. CIWA done q2hr per orders. No ativan needed per CIWA protocol. INT to right wrist patent and free of complications. Pt denies any needs at this time. Fall precautions in place. Bed alarm on. Call light within reach
[2020-01-05 06:27] VITALS: BP 146/93; PULSE 86; TEMP 98.4
--- NOTE | 2020-01-05 07:06 | NUR ---
Report given to RAKESH Isabel
[2020-01-05 08:11] VITALS: BP 147/100; PULSE 93; TEMP 97.9
--- NOTE | 2020-01-05 09:16 | NUR ---
Pt assessment complete. Pt sitting up in bed upon entry, asking about low potassium level. Pt reports continued soft stools every trip to the bathroom. Denies N/V. Lower abdominal pain 10/20 but reports "it's getting better". POC discussed with patient who verbalizes understanding. No needs at this time. Call light within reach.
[2020-01-05] MEDS ORDERED: DRISDOL50000 IU PO (10:32)
[2020-01-05] MEDS ORDERED: PRIL40 PO (10:33)
[2020-01-05] MEDS ORDERED: THIAMINE 1100 MG/TAB PO (10:33)
[2020-01-05] MEDS ORDERED: DUO-KAPS1 CAP PO (10:33)
[2020-01-05] MEDS ORDERED: FOLIC ACID 11 MG/TA1 PO (10:33)
[2020-01-05] MEDS ORDERED: CALCIUM 600/VIT1 CA1 PO (10:34)
[2020-01-05 11:22] VITALS: BP 137/92; PULSE 89; TEMP 98.7
[2020-01-05] MEDS ORDERED: MAG-OX 400400 MG/TAB PO (12:51)
--- NOTE | 2020-01-05 14:00 | NUR ---
Discharge paperwork and instructions reviewed with patient all questions answered at this time. IV to RFA dc'd catheter tip intact. Pt wheeled out to ride at this time.
--- NOTE | 2020-01-05 16:34 | NUR ---
Meat Packer attended clinical rounds with the team. Per PT, patient can return home with 24 hour supervision. MARISSA contacted patient's , Marie who advised she and family will provide 24 hour supervision for patient. Marie advised she has been trying to obtain in home aides from the [facility] and was also interested in Home Health for patient. MARISSA met with patient and provided Medicare.gov list of agencies. Patient selected either [facility] or [facility]. Both declined referral. MARISSA faxed referrals to [facility] and [facility] is able to accept for services and patient and Marie are agreeable to this. MARISSA faxed discharge orders to Thea at [facility] for PT/OT/Fdc. MARISSA contacted Jung (ph#[phone]), Gas P[facility] at the [facility] as patient does not remember what team he works with. Jung advised that they have been trying to reach patient. MARISSA provided current contact information for patient and . Jung also advised MARISSA should fax clinicals to [facility] for review so in home supports may be ordered. MARISSA faxed clinical information and discharge orders to fax#[phone]. MARISSA contacted [facility], and [facility] to advise that another agency will start services. No additional needs at this time.
== END 2020-01-05 14:00 | disposition home or self-care (01) | DRG 432 ==
LOC: COL.ER 14:15 → MEDICAL 16:34
PROVIDERS: Emergency Medicine; Hospitalist; Internal Medicine; Internal Medicine Gastroenterology; Physician Assistant; ADMIT Student in an Organized Health Care Education/Training Program
PROC: 0DB98ZX Excision of Duodenum, Via Natural or Artificial Opening Endoscopic, Diagnostic (ICD-10-PCS; principal; 2020-01-03)
PROC: 0DB68ZX Excision of Stomach, Via Natural or Artificial Opening Endoscopic, Diagnostic (ICD-10-PCS; 2020-01-03)
PROC: 0DBN8ZZ Excision of Sigmoid Colon, Via Natural or Artificial Opening Endoscopic (ICD-10-PCS; 2020-01-03)
DX: K70.10 Alcoholic hepatitis without ascites (principal); K85.20 Alcohol induced acute pancreatitis without necrosis or infection; K29.21 Alcoholic gastritis with bleeding; E43 Unspecified severe protein-calorie malnutrition; E87.2 Acidosis; D61.818 Other pancytopenia; K52.9 Noninfective gastroenteritis and colitis, unspecified; K64.2 Third degree hemorrhoids; K64.4 Residual hemorrhoidal skin tags; I10 Essential (primary) hypertension; F41.9 Anxiety disorder, unspecified; K21.9 Gastro-esophageal reflux disease without esophagitis; F17.210 Nicotine dependence, cigarettes, uncomplicated; N40.0 Benign prostatic hyperplasia without lower urinary tract symptoms; E78.5 Hyperlipidemia, unspecified; K76.0 Fatty (change of) liver, not elsewhere classified; D53.9 Nutritional anemia, unspecified; D69.6 Thrombocytopenia, unspecified; F10.20 Alcohol dependence, uncomplicated; E87.6 Hypokalemia; E83.42 Hypomagnesemia; E16.2 Hypoglycemia, unspecified; E83.51 Hypocalcemia
CPT/HCPCS: 99222-AI; 99232-AI; 99239; C9113; J1170; J2060; J2250; J2270; J2550; J2704; J3475; J3480; J7030; J7120; Q9967

== ENCOUNTER 2020-01-13 10:26 | Outpatient (CLI) | payer MEDICARE, OTHER ==
[~2020-01-13] VITALS: Ht 172.7 cm; Wt 65.0 kg
[~2020-01-13 10:26] MED LIST changes: +CALCIUM 600/VIT1 CA1 PO; +DRISDOL50000 IU PO; +DUO-KAPS1 CAP PO; +MAG-OX 400400 MG/TAB PO; +NICODERM C21 MG/PATC TD; +ULTRAM 50MG TAB50 MG PO; +VISTARIL 2525 MG/CAP PO
[2020-01-13 10:40] VITALS: BP 101/67; PULSE 112; TEMP 98
[2020-01-13] MEDS ORDERED: NORCO 325 MG-51 TAB PO (12:25)
== END 2020-01-13 13:05 | disposition home or self-care (01) ==
LOC: EUO 10:26
DX: E86.0 Dehydration (principal)
CPT/HCPCS: J7030

== ENCOUNTER 2020-03-24 20:39 | Inpatient (IN) | payer MEDICARE, OTHER ==
[~2020-03-24] VITALS: Ht 172.7 cm; Wt 76.1 kg
[~2020-03-24 20:39] MED LIST changes: +CREON 60000 U-11 ECC; +VANCOCIN H125 MG/CAP PO
[2020-03-24 21:21] LABS: BASO # 0.1 (0.0-0.2); BASO % 1.1 % (0.0-2.0); EOS # 0.1 (0.0-0.7); EOS % 1.4 % (0-4.0); GRAN # 3.9 (1.4-6.5); GRAN % 53.3 % (42.2-75.2); HEMATOCRIT 34.4 % (42.0-52.0); HEMOGLOBIN 11.7 g/dl (13.5-18.0); LYMPH # 2.6 (1.2-3.4); MEAN CELL VOLUME 96 fl (80.0-100.0); MEAN CORPUSCULAR HEMOGLOBIN 33 pg (27.0-31.0); MEAN CORPUSCULAR HGB CONC 34 g/dl (33.0-37.0); MONO # 0.6 (0.1-0.6); MONO % 7.9 % (1.7-9.3); PLATELET COUNT 153 K/mm3 (130-400); RED BLOOD COUNT 3.57 M/mm3 (4.20-5.60); REDCELL DISTRIBUTION WIDTH-CV 15.3 % (11.5-14.5)
[2020-03-24 21:35] LABS: ALBUMIN 3.7 gm/dL (3.5-5.0); BILIRUBIN,TOTAL 2.3 mg/dL (0.0-1.0); C-REACTIVE PROTEIN 2.2 mg/dL (0.0-0.9); CALCIUM 8.5 mg/dL (8.4-10.2); CREATININE, serum 0.54 (0.66-1.25); POTASSIUM 3.3 mmol/L (3.4-5.0); TOTAL PROTEIN 7.6 gm/dL (6.4-8.2)
[2020-03-25] VITALS (8 sets, daily range): BP systolic 105–140; BP diastolic 67–93; PULSE 73–102; TEMP 97.4–98.6
--- NOTE | 2020-03-25 00:45 | NUR ---
Patient to medical room 356 at this time. Initial, assessment B, suicide risk, ID screen and COVID screen complete. Patient complains of severe abdominal pain; PRN dilaudid administered. IV fluids initiated at 125 ml/hr. Abdomen is distended and firm with hypoactive bowel sounds. Patient states he has lost over 40 pounds since July 2019. Extremities appear thin. Patient is poor historian of medication list and asks his to provide tomorrow. Patient states he consumed whiskey with his hydrocodone this morning at home to manage his pain.
[2020-03-25 04:31] LABS: HEMOGLOBIN 10.5 g/dl (13.5-18.0); MEAN CELL VOLUME 98 fl (80.0-100.0); MEAN CORPUSCULAR HEMOGLOBIN 33 pg (27.0-31.0); MEAN CORPUSCULAR HGB CONC 34 g/dl (33.0-37.0); PLATELET COUNT 105 K/mm3 (130-400); RED BLOOD COUNT 3.17 M/mm3 (4.20-5.60); REDCELL DISTRIBUTION WIDTH-CV 15.6 % (11.5-14.5)
[2020-03-25 04:37] LABS: HEMATOCRIT 31.2 % (42.0-52.0)
--- NOTE | 2020-03-25 04:41 | NUR ---
Patient complains of discomfort in left a/c IV. New 20 gauge IV initiated in left forearm and left a/c IV removed.
[2020-03-25 04:45] LABS: CALCIUM 7.6 mg/dL (8.4-10.2); CREATININE, serum 0.44 (0.66-1.25); POTASSIUM 3.4 mmol/L (3.4-5.0)
[2020-03-25 05:35] LABS: BAND 6 % (0-10); EOSINOPHIL 1 % (0-4); LYMPHOCYTE 28 % (20.0-51.0); NEUTROPHILS 57 % (42.0-75.2)
[2020-03-25 05:36] LABS: ANISOCYTOSIS 1+; HYPOCHROMIA 2+; PLATELET ESTIMATE DECREASED (NORMAL)
[2020-03-25 05:37] LABS: BURR CELLS 1+; TEAR DROP CELLS 1+
--- NOTE | 2020-03-25 09:02 | NUR ---
Awake and alert upon entry, has C/O pain. Shift assessments complete, left Pt call light in reach, bed in lowest position.
--- NOTE | 2020-03-25 13:36 | NUR ---
SW called patient to complete intake and provided that she would answer any questions needing answered. Marie stated that patient lives with her in [place], [place] ans her number is as follows: [phone]. states that patient does not utilize any DME at this time, but there was a home health agency ([facility]) that was suppose to come out to do an assesment but did not do so due staff stating they were low staffed. provided that [facility] is to come and do assesment to see if the patient will benefit from a walker or a cane. states that the patient would prefer a cane, and would like to be assesed for a shower chair as well. states PCP is Dr. Harsha Lloyd, pharmacy is [facility], and he is able to afford his medicatons. Patient's states that she does not have any concerns in regards to patient going home at this time as she has been through this before. SW will continue to follow. at this time.
--- NOTE | 2020-03-25 19:07 | NUR ---
Pt resting in the room today, has had C/O pain throughout, medications were requested and given for relief. No other issues noted. VS have remained stable.
--- NOTE | 2020-03-25 20:50 | NUR ---
Pt assessment completed and documented. Pt sitting up in bed at this time watching televison. Pt alert and oriented x4. PRN diluadid given per pt request for complaints of lower abdominal pain. IVF infusing per orders to left forearm IV. States he is frustrated that he is on a clear liquid diet and is eager to eat food. Pt denies any other needs at this time. Call light within reach. Will continue to monitor.
[2020-03-25 20:58] LABS: CLOSTRIDIUM DIFF A/B NEG; CLOSTRIDIUM DIFF A/B INTERP No C.diff present
[2020-03-26 03:58] VITALS: BP 118/80; PULSE 107; TEMP 98.7
--- NOTE | 2020-03-26 06:10 | NUR ---
Pt currently resting in bed without s/s of pain seen. IVF infusing per orders to left forearm IV. Pt denies any other needs. Call light within reach
[2020-03-26 07:31] LABS: BASO # 0.1 (0.0-0.2); BASO % 1.7 % (0.0-2.0); EOS # 0.1 (0.0-0.7); EOS % 3.4 % (0-4.0); GRAN # 1.6 (1.4-6.5); GRAN % 53.2 % (42.2-75.2); MEAN CELL VOLUME 98 fl (80.0-100.0); MEAN CORPUSCULAR HGB CONC 34 g/dl (33.0-37.0); MEAN PLATELET VOLUME 10.6 fl (7.4-10.4); MONO # 0.3 (0.1-0.6); MONO % 9.4 % (1.7-9.3); PLATELET COUNT 79 K/mm3 (130-400); RED BLOOD COUNT 2.83 M/mm3 (4.20-5.60); REDCELL DISTRIBUTION WIDTH-CV 15.4 % (11.5-14.5)
[2020-03-26 07:34] LABS: INR 1.3 (0.8-3.0)
[2020-03-26 07:35] LABS: HEMATOCRIT 27.8 % (42.0-52.0); HEMOGLOBIN 9.3 g/dl (13.5-18.0); MEAN CORPUSCULAR HEMOGLOBIN 33 pg (27.0-31.0)
[2020-03-26 07:41] LABS: ALBUMIN 2.7 gm/dL (3.5-5.0); BILIRUBIN UNCONJUGATED 0.6 mg/dL (0.0-1.1); BILIRUBIN,DIRECT 0.9 mg/dL (0.0-0.4); BILIRUBIN,TOTAL 1.6 mg/dL (0.0-1.0); CALCIUM 7.5 mg/dL (8.4-10.2); CREATININE, serum 0.49 (0.66-1.25); POTASSIUM 3.4 mmol/L (3.4-5.0); TOTAL PROTEIN 5.9 gm/dL (6.4-8.2)
[2020-03-26 07:50] VITALS: BP 139/82; PULSE 110; TEMP 97.2
--- NOTE | 2020-03-26 09:00 | NUR ---
Pt awake and alert upon entry, has C/O pain medications given for relief. Shift assessments complete, left Pt call light in [facility], bed in lowest position.
--- NOTE | 2020-03-26 09:45 | NUR ---
Visited with patient and due to being upset that they have not signed a consent. Nurse caring for the patient wanted patient to wait to sign the consent until after someone had talked to him about the procedure. Patient's stated that they know everything they need to know and that he wants to sign the consent. I asked the patient if he felt comfortable signing the consent and he shook his head yes. I asked if either one of them have any questions regarding the procedure and both stated they do not.
--- NOTE | 2020-03-26 11:00 | NUR ---
Pt discharged to home, discussed discharge packet with Pt, escorted Pt to entrance, Pt left with family via private transportation.
--- NOTE | 2020-03-26 11:00 | NUR ---
Pt has had multiple physicians and hospital staff in room. Just went in with consent to have patient sign. Again asked if there were any questions related to the procedure and both stated no. Consent signed at this time
[2020-03-26 11:34] VITALS: BP 138/88; PULSE 111; TEMP 98.2
[2020-03-26 16:43] LABS: PERITONEAL -POLYMORPHONUCLEAR 12.4 % (0-25); PERITONEAL FLUID RBC 4000 /mm3 (0-0)
--- NOTE | 2020-03-26 16:55 | NUR ---
Aircraft Time Clerk contacted Rolanda at [facility] who advised they could accept patient but would want a nursing assessment done before starting PT/OT due to patient's history of non compliance. SW met with patient and patient's Marie who are agreeable to Home Health. SW will continue to follow.
--- NOTE | 2020-03-26 19:05 | NUR ---
Received report from RAKESH Martinez. Pt resting in bed with tv on. Denies needs at this time.
[2020-03-26 19:57] VITALS: BP 138/93; PULSE 107; TEMP 98.1
--- NOTE | 2020-03-26 20:10 | NUR ---
Pt resting in the room, has C/O pain today and has recieved medications for relief, VS have remained stable.
[2020-03-26 21:46] VITALS: BP 135/82; PULSE 110; TEMP 98.6
--- NOTE | 2020-03-26 21:48 | NUR ---
Assessment completed. Pt resting in bed at this time. Reports pain 5/10 in lower abdomen that pt states is gradually increasing. PRN Dilaudid administered. Order obtained for Nicotine patch 21 mg, applied to pt's left upper arm. Abdomen firm and distended with midline protruding. Pt reports rebound tenderness. At this time no tremors, anxiety, diaphoresis, or hallucinations noted. Puncture wound to left lower abdomen from paracentesis today. No dressing, bruising around site. INT to left forearm intact, flushes easily.
[2020-03-27] VITALS (12 sets, daily range): BP systolic 95–127; BP diastolic 58–90; PULSE 98–125; TEMP 98–99.5
--- NOTE | 2020-03-27 05:44 | NUR ---
Pt sleeping intermittently during night. Reports of moderate abdominal pain. Dilaudid administered twice per orders. Detox scores of 2-3 throughout night due to tachycardia and occassionally elevated BPs and temps. No tremors, sweating, anxiety, noted.
[2020-03-27 08:17] LABS: BASO % 1.3 % (0.0-2.0); EOS # 0.1 (0.0-0.7); EOS % 2.1 % (0-4.0); GRAN # 1.3 (1.4-6.5); GRAN % 52.7 % (42.2-75.2); HEMATOCRIT 28.5 % (42.0-52.0); HEMOGLOBIN 9.9 g/dl (13.5-18.0); LYMPH # 0.8 (1.2-3.4); LYMPH % 33.8 % (20.0-51.0); MEAN CELL VOLUME 96 fl (80.0-100.0); MEAN CORPUSCULAR HEMOGLOBIN 33 pg (27.0-31.0); MEAN CORPUSCULAR HGB CONC 35 g/dl (33.0-37.0); MEAN PLATELET VOLUME 9.9 fl (7.4-10.4); MONO # 0.2 (0.1-0.6); MONO % 9.7 % (1.7-9.3); PLATELET COUNT 72 K/mm3 (130-400); RED BLOOD COUNT 2.96 M/mm3 (4.20-5.60)
--- NOTE | 2020-03-27 08:33 | NUR ---
Assessment complete. Patient sitting up in bed awake and alert at this time. States he is having pain rated at a 5-6 out of 10 and is requesting pain medication. Tremors are visible with movement and activities. PRN pain medication was given at this time. Pt states he would like to have some solid food, ensured him I would speak to the physician about this. No other needs were expressed at this time. Call light is in reach.
[2020-03-27 08:49] LABS: ALANINE AMINOTRANSFERASE 35 U/L (4-49); ALBUMIN 2.9 gm/dL (3.5-5.0); ALKALINE PHOSPHATASE 574 U/L (50-136); ANION GAP 8 mmol/L (7-16); AST,SGOT 198 U/L (15-37); BILIRUBIN,TOTAL 2.1 mg/dL (0.0-1.0); CARBON DIOXIDE 25 mmol/L (22-30); CHLORIDE 99 mmol/L (98-107); CREATININE, serum 0.46 (0.66-1.25); GLUCOSE 104 mg/dL (74-106); POTASSIUM 3.2 mmol/L (3.4-5.0); SODIUM 132 mmol/L (137-145); TOTAL PROTEIN 6.4 gm/dL (6.4-8.2)
[2020-03-27 08:52] LABS: BLOOD UREA NITROGEN < 2 mg/dL (9-20)
--- NOTE | 2020-03-27 14:05 | NUR ---
Evening Anchor attended clinical rounds with the team and MARISSA advised [facility] that patient is agreeable to Home Health and [facility] has accepted. Hospitalist discussed the importance of quitting alcohol. Patient verbalized understanding. SW followed up with patient and patient's Marie after rounds. Patient states he was going to group therapy at the [facility] but sessions were switched to [facility] and he doesn't want to do this. Patient states the Vinyl Top Installer, Saritha Sullivan at the [facility] calls to check on him often. Patient states he has all the tools needed to quit drinking alcohol but needs to be more disciplined. Patient is interested in local AA meetings. SW provided Drug and Alcohol resource sheet and also provided a printed out list of local AA meetings. Patient is interested in the meetings that meet in person. MARISSA will continue to follow.
--- NOTE | 2020-03-27 16:59 | NUR ---
Patient has had a good day. He tolerated a whole solid food meal for lunch. PRN pain medication has been given every 2 hours for abdominal pain. Tremors remain visible but are improved since this morning. was at the bedside for most of the morning. Continuing to monitor. Call light is in reach.
--- NOTE | 2020-03-27 18:54 | NUR ---
Received report from RAKESH Carbajal. Pt sitting up in bed, at bedside. Denies needs at this time.
--- NOTE | 2020-03-27 21:35 | NUR ---
Assessment complete. Pt resting in bed. Reports moderate pain in abdomen and rebound tenderness. Abdomen firm and distended, bowel sounds audible all quadrants. Puncture wound from paracentesis without drainage, bruising around site. Heart rate mildly elevated, rhythm regular. Denies other needs at this time.
[2020-03-28] VITALS (11 sets, daily range): BP systolic 93–120; BP diastolic 59–85; PULSE 112–123; TEMP 98.2–99.5
[2020-03-28 07:28] LABS: BASO % 0.6 % (0.0-2.0); EOS # 0.1 (0.0-0.7); EOS % 2.5 % (0-4.0); GRAN # 1.8 (1.4-6.5); GRAN % 50.2 % (42.2-75.2); LYMPH # 1.4 (1.2-3.4); LYMPH % 37.8 % (20.0-51.0); MEAN CELL VOLUME 99 fl (80.0-100.0); MEAN CORPUSCULAR HGB CONC 35 g/dl (33.0-37.0); MEAN PLATELET VOLUME 11.3 fl (7.4-10.4); MONO # 0.3 (0.1-0.6); MONO % 8.6 % (1.7-9.3); PLATELET COUNT 70 K/mm3 (130-400); RED BLOOD COUNT 2.62 M/mm3 (4.20-5.60)
[2020-03-28 07:29] LABS: MEAN CORPUSCULAR HEMOGLOBIN 34 pg (27.0-31.0)
[2020-03-28 07:33] LABS: ALBUMIN 2.7 gm/dL (3.5-5.0); BILIRUBIN,TOTAL 2.4 mg/dL (0.0-1.0); CREATININE, serum 0.57 (0.66-1.25); POTASSIUM 3.7 mmol/L (3.4-5.0)
--- NOTE | 2020-03-28 08:12 | NUR ---
Assessment completed, alert/oriented, vital signs stable/ slighty tachycardi, reports pain is improved but stated is increasing this mroning and requested pain meds and nausea meds before breakfast, abdomen is slgihtly distended but soft and BS +, patient reports feeling much better s/p paracentesis, scoring 3-5 on CIWA scale throughout the night per nurse report, heart RRR, lungs CTA, patient is sitting up and his breakfast just arrived, he denies any BM this mnorning or throuhgout the night, he is up independently in his room and denies other needs at this time
[2020-03-28 18:22] LABS: STOOL CHLORIDE 56 mmol/L (()); STOOL MAGNESIUM 9 mg/dL (()); STOOL POTASSIUM 22 mmol/L (()); STOOL SODIUM 105 mmol/L (())
[2020-03-28 23:11] LABS: STOOL OSMOLALITY 377 mOsm/kg (())
--- NOTE | 2020-03-28 23:36 | NUR ---
Pt resting in bed, gave potassium per protocol. abdomen is distended and firm. pt requested trazadone to sleep, documented in SEP. pt heart rate was in the 140s, pt was walking in room. sat pt back down in bed and heart rate decreased to 120s. heart rate currently in 100s. no other needs at this time.
[2020-03-29] VITALS (12 sets, daily range): BP systolic 94–119; BP diastolic 58–86; PULSE 105–124; TEMP 97.6–99.5
--- NOTE | 2020-03-29 05:14 | NUR ---
pt sleeping in bed most of the night. gave trazadone per pt request to help him sleep. pt heart rate in the 140s when pt gets up to go to the bathroom. this nurse reported this to rock RUBIO and she suggested giving prn ativan due to detox. documented in SEP. pt heart rate currently in the 110s. will continue to monitor.
--- NOTE | 2020-03-29 05:53 | NUR ---
Pt heart rate was in the 140s again, talked with Rita MORTON and agreed to give ativan prn for detox, documented in SEP.
[2020-03-29 07:03] LABS: BASO % 0.5 % (0.0-2.0); EOS # 0.1 (0.0-0.7); EOS % 2.7 % (0-4.0); GRAN # 2.3 (1.4-6.5); GRAN % 58.3 % (42.2-75.2); LYMPH # 1.1 (1.2-3.4); LYMPH % 26.6 % (20.0-51.0); MEAN CELL VOLUME 100 fl (80.0-100.0); MEAN CORPUSCULAR HGB CONC 33 g/dl (33.0-37.0); MEAN PLATELET VOLUME 11.8 fl (7.4-10.4); MONO # 0.5 (0.1-0.6); MONO % 11.4 % (1.7-9.3); PLATELET COUNT 62 K/mm3 (130-400); RED BLOOD COUNT 2.34 M/mm3 (4.20-5.60); REDCELL DISTRIBUTION WIDTH-CV 15.2 % (11.5-14.5)
[2020-03-29 07:08] LABS: HEMATOCRIT 23.4 % (42.0-52.0); HEMOGLOBIN 7.8 g/dl (13.5-18.0); MEAN CORPUSCULAR HEMOGLOBIN 33 pg (27.0-31.0)
[2020-03-29 07:15] LABS: ALBUMIN 2.8 gm/dL (3.5-5.0); BILIRUBIN,TOTAL 2.2 mg/dL (0.0-1.0); CALCIUM 8.6 mg/dL (8.4-10.2); CREATININE, serum 0.53 (0.66-1.25); TOTAL PROTEIN 5.8 gm/dL (6.4-8.2)
--- NOTE | 2020-03-29 16:45 | NUR ---
NOtified hospitalist of increasing HR
--- NOTE | 2020-03-29 16:53 | NUR ---
Assistant Site Manager contacted Rolanda at [facility] and faxed updates. SW will continue to follow.
[2020-03-29 19:52] LABS: BASO % 0.5 % (0.0-2.0); EOS # 0.1 (0.0-0.7); EOS % 1.9 % (0-4.0); GRAN # 2.7 (1.4-6.5); GRAN % 62.6 % (42.2-75.2); LYMPH # 1.1 (1.2-3.4); LYMPH % 24.9 % (20.0-51.0); MEAN CELL VOLUME 102 fl (80.0-100.0); MEAN CORPUSCULAR HGB CONC 34 g/dl (33.0-37.0); MEAN PLATELET VOLUME 10.9 fl (7.4-10.4); MONO # 0.4 (0.1-0.6); MONO % 9.6 % (1.7-9.3); PLATELET COUNT 66 K/mm3 (130-400); RED BLOOD COUNT 1.79 M/mm3 (4.20-5.60); REDCELL DISTRIBUTION WIDTH-CV 15.6 % (11.5-14.5)
[2020-03-29 19:58] LABS: INR 1.7 (0.8-3.0); PROTHROMBIN TIME 18.9 SECONDS (9.7-12.8)
[2020-03-29 20:03] LABS: ALBUMIN 2.7 gm/dL (3.5-5.0); BILIRUBIN,TOTAL 2.3 mg/dL (0.0-1.0); CALCIUM 8.2 mg/dL (8.4-10.2); CREATININE, serum 0.55 (0.66-1.25); MAGNESIUM 1.5 mg/dL (1.6-2.3); POTASSIUM 4.2 mmol/L (3.4-5.0); TOTAL PROTEIN 5.3 gm/dL (6.4-8.2)
[2020-03-29 20:05] LABS: HEMATOCRIT 18.2 % (42.0-52.0); HEMOGLOBIN 6.1 g/dl (13.5-18.0); MEAN CORPUSCULAR HEMOGLOBIN 34 pg (27.0-31.0)
--- NOTE | 2020-03-29 22:08 | NUR ---
Pt assessment completed and documented. Pt resting in bed at this time. Pt alert and oriented x4. Complaints of lower abdominal pain, however states he does not need anything for pain at this time. IVF infusing per orders to left forearm IV site. Pt having loose, gabo red stools this evening. Pt also complaining at this time of coughing up a small amount of blood. ALBINO Salinas notified and orders were placed. GI, Dr Rahman, consulted with phone orders given to RN to follow EDG/Colonoscopy order set with consult to anesthesia and to start bowel prep tonight with golytely. Plan for EGD/Colonoscopy tomorrow around noon. Will start blood transfusion per orders. Pt denies any other needs at this time. Call light within reach. Bed alarm on. Will continue to monitor
[2020-03-30] VITALS (13 sets, daily range): BP systolic 94–131; BP diastolic 65–92; PULSE 85–111; TEMP 97.4–98.9
[2020-03-30 02:54] LABS: HEMATOCRIT 23.9 % (42.0-52.0)
--- NOTE | 2020-03-30 05:09 | NUR ---
Pt on bowel prep overnight for EGD/ Colonoscopy per orders from Dr. Rahman. Pt has had multiple episodes of bloody diarrhea. Octreotide infusing per orders to left forearm IV site. INT to RUE CDI. Rita RUBIO notified of HGB being 8 after receiving one unit PRBC with orders given to recheck HGB with AM labs. Pt currently resting in bed with no complaints. No other needs at this time. Call light within reach. Bed alarm on.
--- NOTE | 2020-03-30 07:19 | NUR ---
Report given to RAKESH Martinez
[2020-03-30 07:40] LABS: BASO % 0.5 % (0.0-2.0); EOS # 0.1 (0.0-0.7); GRAN # 2.1 (1.4-6.5); GRAN % 56.1 % (42.2-75.2); LYMPH # 1.1 (1.2-3.4); LYMPH % 29.8 % (20.0-51.0); MEAN CELL VOLUME 100 fl (80.0-100.0); MEAN CORPUSCULAR HGB CONC 34 g/dl (33.0-37.0); MEAN PLATELET VOLUME 11.1 fl (7.4-10.4); MONO # 0.4 (0.1-0.6); MONO % 10.1 % (1.7-9.3); PLATELET COUNT 69 K/mm3 (130-400); RED BLOOD COUNT 2.12 M/mm3 (4.20-5.60); REDCELL DISTRIBUTION WIDTH-CV 16.9 % (11.5-14.5)
[2020-03-30 07:44] LABS: HEMATOCRIT 21.2 % (42.0-52.0); HEMOGLOBIN 7.1 g/dl (13.5-18.0); MEAN CORPUSCULAR HEMOGLOBIN 33 pg (27.0-31.0)
[2020-03-30 07:50] LABS: ALBUMIN 2.7 gm/dL (3.5-5.0); BILIRUBIN,TOTAL 2.8 mg/dL (0.0-1.0); CALCIUM 7.9 mg/dL (8.4-10.2); CREATININE, serum 0.53 (0.66-1.25); POTASSIUM 4.1 mmol/L (3.4-5.0); TOTAL PROTEIN 5.4 gm/dL (6.4-8.2)
--- NOTE | 2020-03-30 09:50 | NUR ---
Pt sleeping upon entry, easily awakened, shift assessments complete, changed fluids to pre-op NS.
[2020-03-30 13:38] LABS: BASO % 0.5 % (0.0-2.0); EOS # 0.1 (0.0-0.7); EOS % 2.6 % (0-4.0); GRAN % 69.9 % (42.2-75.2); LYMPH # 0.8 (1.2-3.4); LYMPH % 18.5 % (20.0-51.0); MEAN CELL VOLUME 100 fl (80.0-100.0); MEAN CORPUSCULAR HGB CONC 33 g/dl (33.0-37.0); MEAN PLATELET VOLUME 11.1 fl (7.4-10.4); MONO # 0.3 (0.1-0.6); PLATELET COUNT 79 K/mm3 (130-400); RED BLOOD COUNT 2.26 M/mm3 (4.20-5.60); REDCELL DISTRIBUTION WIDTH-CV 17.4 % (11.5-14.5)
[2020-03-30 13:41] LABS: HEMATOCRIT 22.7 % (42.0-52.0); HEMOGLOBIN 7.5 g/dl (13.5-18.0); MEAN CORPUSCULAR HEMOGLOBIN 33 pg (27.0-31.0)
--- NOTE | 2020-03-30 23:10 | NUR ---
Pt assessment completed and charted. Meds provided as per SEP. Following alcohol detox protocal. Helped settled on bed, call light on reach. No further needs at this time.
[2020-03-31] VITALS (9 sets, daily range): BP systolic 106–122; BP diastolic 69–85; PULSE 88–98; TEMP 97.4–99.2
--- NOTE | 2020-03-31 06:19 | NUR ---
Pt had an uneventful night, slept through out the night. PRN pain med provided q4hr as per SEP on pt request. No further needs at this time.
[2020-03-31 08:38] LABS: BASO % 0.7 % (0.0-2.0); EOS # 0.2 (0.0-0.7); EOS % 4.1 % (0-4.0); GRAN # 2.3 (1.4-6.5); GRAN % 55.5 % (42.2-75.2); LYMPH # 1.2 (1.2-3.4); LYMPH % 29.6 % (20.0-51.0); MEAN CELL VOLUME 101 fl (80.0-100.0); MEAN CORPUSCULAR HGB CONC 34 g/dl (33.0-37.0); MEAN PLATELET VOLUME 10.9 fl (7.4-10.4); MONO # 0.4 (0.1-0.6); MONO % 9.6 % (1.7-9.3); PLATELET COUNT 72 K/mm3 (130-400); RED BLOOD COUNT 2.22 M/mm3 (4.20-5.60); REDCELL DISTRIBUTION WIDTH-CV 17.4 % (11.5-14.5)
[2020-03-31 08:41] LABS: HEMATOCRIT 22.4 % (42.0-52.0); HEMOGLOBIN 7.5 g/dl (13.5-18.0); MEAN CORPUSCULAR HEMOGLOBIN 34 pg (27.0-31.0)
[2020-03-31 08:53] LABS: ALBUMIN 2.6 gm/dL (3.5-5.0); BILIRUBIN,TOTAL 3.9 mg/dL (0.0-1.0); CALCIUM 7.9 mg/dL (8.4-10.2); CREATININE, serum 0.51 (0.66-1.25); MAGNESIUM 1.9 mg/dL (1.6-2.3); PHOSPHOROUS 2.5 mg/dL (2.5-4.5); POTASSIUM 3.5 mmol/L (3.4-5.0); TOTAL PROTEIN 5.5 gm/dL (6.4-8.2)
--- NOTE | 2020-03-31 09:00 | NUR ---
Patient laying in bed, easily aroused with verbal command. A&Ox3. Stating that he is very tired. Nurse informed the patient that nursing staff will cluster care to help patient get rest. VSS. IV CDI. Nurse assisted patient with sitting up, nurse informed patient that bed alarm will be turned on and that he needs to call nursing staff for assistance with ambulation. Patient verbalized an understanding. No further needs expressed from the patient. Call light within reach. Bed alarm on
--- NOTE | 2020-03-31 17:47 | NUR ---
Patient has had several episodes of being impulsive and needing to go to the bathroom. Nursing staff has informed the patient to call for assistance with ambulation. Patient is A&Ox3. VSS. Reporting pain in abdomen, pain medication given when requested. IV CDI, fluids infusing. Fall precautions in place. No further needs expressed from the patient. Call light within reach. Bed alarm on
--- NOTE | 2020-04-01 00:26 | NUR ---
Pt assessment completed and charted.Pt seems weak, tired and sleepy. Meds provided as per MAR as well as pain meds on request. Helped him settled on bed, call light on reach, bed alaran is on. No further needs at this time.
[2020-04-01 03:06] VITALS: BP 105/63; PULSE 86; TEMP 99.1
--- NOTE | 2020-04-01 06:11 | NUR ---
Pt had an uneventful night. Slept through out the night. Morning meds provided as per SEP. No further needs at this time.
[2020-04-01 06:18] LABS: ALBUMIN 2.5 gm/dL (3.5-5.0); CALCIUM 7.8 mg/dL (8.4-10.2); CREATININE, serum 0.49 (0.66-1.25); MAGNESIUM 1.7 mg/dL (1.6-2.3); POTASSIUM 3.6 mmol/L (3.4-5.0); TOTAL PROTEIN 5.3 gm/dL (6.4-8.2)
[2020-04-01 06:36] LABS: MEAN CELL VOLUME 101 fl (80.0-100.0); MEAN CORPUSCULAR HGB CONC 33 g/dl (33.0-37.0); MEAN PLATELET VOLUME 11.2 fl (7.4-10.4); PLATELET COUNT 77 K/mm3 (130-400); RED BLOOD COUNT 2.12 M/mm3 (4.20-5.60); REDCELL DISTRIBUTION WIDTH-CV 16.8 % (11.5-14.5)
[2020-04-01 06:54] LABS: HEMATOCRIT 21.4 % (42.0-52.0); HEMOGLOBIN 7.1 g/dl (13.5-18.0); MEAN CORPUSCULAR HEMOGLOBIN 33 pg (27.0-31.0)
[2020-04-01 09:55] LABS: ANISOCYTOSIS 2+; BAND 1 % (0-10); HYPOCHROMIA 1+; LYMPHOCYTE 29 % (20.0-51.0); NEUTROPHILS 60 % (42.0-75.2)
--- NOTE | 2020-04-01 10:59 | NUR ---
Assessment completed. Pt. sleeping in bed. Pt had no complaints of pain. Meds were administered. call light in reach.
--- NOTE | 2020-04-01 12:00 | NUR ---
Agree with Tomasa, student nurse assessment. Patient sleeping, but easily awakened. A&Ox3. VSS. IV CDI. Patient stating that he is still tired and didnt sleep well at night. Denies pain and discomfort. No further needs expressed from the patient. Call light within reach. Bed alarm on
[2020-04-01 12:26] VITALS: BP 98/66; PULSE 79; TEMP 98.3
[2020-04-01 16:07] VITALS: BP 110/74; PULSE 85; TEMP 98.1
--- NOTE | 2020-04-01 17:08 | NUR ---
Patient had an uneventful day. Tomasa, student nurse assisted with cares. Patient A&Ox3. Denies pain and discomfort. VSS. IV CDI, fluid infusing. Nursing staff encouraging patient to increase PO intake. Diet advanced for dinner. Will continue to monitor and see how patient tolerates. Patient has been sleeping most of the day. No further needs expressed from the patient. Call light within reach. Fall precautions in place. Bed alarm on
[2020-04-01 20:10] VITALS: BP 106/72; PULSE 87; TEMP 97.7
--- NOTE | 2020-04-01 20:13 | NUR ---
Pt assessment completed and documented. Pt resting in bed at this time watching televsion. Pt alert and oriented x4. Complaints of lower abominal pain. PRN roxicodone given per orders. Sandostatin infusing per orders to left forearm IV site. INT to RUE CDI. Pt denies any other needs at this time. Call light within reach. Bed alarm on. Will continue to monitor
[2020-04-01 21:46] VITALS: BP 99/60; PULSE 86; TEMP 98.1
[2020-04-02] VITALS (7 sets, daily range): BP systolic 94–112; BP diastolic 64–78; PULSE 82–104; TEMP 97.4–98.7
--- NOTE | 2020-04-02 05:04 | NUR ---
Pt rested well overnight. PRN roxicodone given before bed per pt request for lower abdominal pain. Sandostatin infusing per orders to left forearm IV site. INT to RUE CDI. Telemetry on. Pt denies any other needs at this time. Call light within reach
[2020-04-02 07:32] LABS: MEAN CELL VOLUME 103 fl (80.0-100.0); MEAN CORPUSCULAR HGB CONC 33 g/dl (33.0-37.0); PLATELET COUNT 88 K/mm3 (130-400); RED BLOOD COUNT 2.19 M/mm3 (4.20-5.60); REDCELL DISTRIBUTION WIDTH-CV 16.9 % (11.5-14.5)
[2020-04-02 07:38] LABS: HEMATOCRIT 22.5 % (42.0-52.0); HEMOGLOBIN 7.4 g/dl (13.5-18.0); MEAN CORPUSCULAR HEMOGLOBIN 34 pg (27.0-31.0)
[2020-04-02 07:44] LABS: ALANINE AMINOTRANSFERASE 42 U/L (4-49); ALBUMIN 2.9 gm/dL (3.5-5.0); ALKALINE PHOSPHATASE 288 U/L (50-136); ANION GAP 6 mmol/L (7-16); AST,SGOT 189 U/L (15-37); BILIRUBIN,TOTAL 2.4 mg/dL (0.0-1.0); CALCIUM 8.4 mg/dL (8.4-10.2); CARBON DIOXIDE 26 mmol/L (22-30); CHLORIDE 102 mmol/L (98-107); CREATININE, serum 0.49 (0.66-1.25); GLUCOSE 85 mg/dL (74-106); MAGNESIUM 1.7 mg/dL (1.6-2.3); PHOSPHOROUS 3.1 mg/dL (2.5-4.5); POTASSIUM 3.9 mmol/L (3.4-5.0); SODIUM 135 mmol/L (137-145); TOTAL PROTEIN 5.6 gm/dL (6.4-8.2)
[2020-04-02 07:45] LABS: BLOOD UREA NITROGEN < 2 mg/dL (9-20)
[2020-04-02 09:24] LABS: ANISOCYTOSIS 1+; BAND 4 % (0-10); EOSINOPHIL 3 % (0-4); HYPOCHROMIA 1+; LYMPHOCYTE 34 % (20.0-51.0); NEUTROPHILS 43 % (42.0-75.2); PLATELET ESTIMATE DECREASED (NORMAL)
--- NOTE | 2020-04-02 10:18 | NUR ---
SW attended clinical rounds. The patient's at bedside. The patient reports to feeling worse today. The clinical team plans to follow up with GI on recommendations. SW to continue to follow.
--- NOTE | 2020-04-02 11:53 | NUR ---
Pt assessment completed and charted. Medications administered per SEP. Pt A&O, 1 assist to SBA in room. Pt on room air, breathing is even and unlabored, denies SOB. Heart RRR. Pulses strong bilaterally. No edema noted, no skin issues. BS active in LQ, hypoactive in upper quadrants. Abdomen distended, firm. Pt complaining of Rt side abdominal pain, 8-9/10, dull and throbbing, received PRN shaheen, stated it improved some, received Ultram PRN. Pt to have paracentesis this afternoon. Pt states he is having some diarrhea, this nurse has not witnessed yet today. Pt denies N/V, chest pain, dizziness, numbness or tingling. LFA IV w/ octreotide running, no issues noted. POC discussed w/ patient and at bedside. No further needs at this time. Bed alarm on.
--- NOTE | 2020-04-02 14:30 | NUR ---
Pt back from paracentesis, LLQ, bandage in place, 3.4L fluid removed. Pt states he is having some pain, shaheen administered per mar, pt did state his "stomach doesn't feel as tight". Bed alarm on, Octreotide resumed, diet changed and tray delivered, no further needs at this time.
--- NOTE | 2020-04-02 17:45 | NUR ---
Pt assisted to bathroom, bed alarm back on. Pt denied need for pain medication at this time.
--- NOTE | 2020-04-02 21:00 | NUR ---
Pt assessment completed and documented. Pt resting in bed at this watching television. Pt alert and oriented x4. Pt states that he feels better after getting paracentesis today. Bandaid to left lower abdomen CDI. Complaints of generalized abdominal pain. PRN pain medication given per orders per pt request. INT to RUE and LF CDI. Pt denies any other needs at this time. Fall precautions in place. Bed alarm on. Call light within reach. Will continue to monitor
[2020-04-03 03:15] VITALS: BP 100/64; PULSE 94; TEMP 98.5
--- NOTE | 2020-04-03 04:54 | NUR ---
Pt had uneventful night. PRN pain medication given per orders for reports of abdominal pain. No further reports of pain. INT to left forearm CDI. Pt denies any other needs at this time. Bed alarm on. Call light within reach
[2020-04-03 07:23] LABS: ALBUMIN 2.7 gm/dL (3.5-5.0); BILIRUBIN,TOTAL 2.1 mg/dL (0.0-1.0); CALCIUM 8.3 mg/dL (8.4-10.2); CREATININE, serum 0.55 (0.66-1.25); MAGNESIUM 1.5 mg/dL (1.6-2.3); POTASSIUM 3.8 mmol/L (3.4-5.0); TOTAL PROTEIN 5.5 gm/dL (6.4-8.2)
[2020-04-03 07:25] LABS: MEAN CELL VOLUME 101 fl (80.0-100.0); MEAN CORPUSCULAR HGB CONC 33 g/dl (33.0-37.0); MEAN PLATELET VOLUME 10.9 fl (7.4-10.4); PLATELET COUNT 110 K/mm3 (130-400); RED BLOOD COUNT 2.25 M/mm3 (4.20-5.60); REDCELL DISTRIBUTION WIDTH-CV 16.8 % (11.5-14.5)
[2020-04-03 07:30] LABS: HEMATOCRIT 22.8 % (42.0-52.0); HEMOGLOBIN 7.6 g/dl (13.5-18.0); MEAN CORPUSCULAR HEMOGLOBIN 34 pg (27.0-31.0)
[2020-04-03 08:00] VITALS: BP 100/67; PULSE 88; TEMP 98.3
[2020-04-03 08:16] LABS: BAND 7 % (0-10); BASOPHIL 3 % (0-2); EOSINOPHIL 3 % (0-4); LYMPHOCYTE 41 % (20.0-51.0); METAMYELOCYTE 1 % (0-0); NEUTROPHILS 35 % (42.0-75.2); PLATELET ESTIMATE DECREASED (NORMAL)
--- NOTE | 2020-04-03 09:05 | NUR ---
Pt assessment completed and charted. Medications administerd per sep. Pt is A&O, sitting in bed, just finished breakfast tray,, ate about 40% but tolerated well. Pt on room air, breathing is even and unlabored, denies SOB. LS cta in upper lobes, diminished in bases. BS active X4, pulses strong bilaterally, heart RRR, no edema noted. Pt denies chest pain, dizziness, N/V. States he has some diarrhea, this nurse has not seen any yet. Pt c/o of some abdominal pain but overall "feels much better". Abdomen distended and firm. Bandaid to LLQ, CDI. No further needs at this time. Bed alarm on, call light within reach.
[2020-04-03] MEDS ORDERED: CIPRO 500MG TA500 MG PO (09:32)
[2020-04-03] MEDS ORDERED: ALDACTONE 25MG25 M1 PO (09:32)
[2020-04-03] MEDS ORDERED: LASIX 20MG TABL20 MG PO (09:33)
[2020-04-03] MEDS ORDERED: ROXICODONE 55 MG/TAB PO (09:34)
[2020-04-03] MEDS ORDERED: MAG-OX 400400 MG/TAB PO (09:34)
[2020-04-03 11:21] VITALS: BP 100/65; PULSE 81; TEMP 97.8
--- NOTE | 2020-04-03 12:09 | NUR ---
Discharge intructions discussed and reviewed w/ patient who verbalized understanding, all questions answered, LFA INT IV dc'd w/o issues and catheter intact. Awaiting to arrive and to discuss POC w/ physician and SW. MARISSA Carbajal following, will update.
--- NOTE | 2020-04-03 13:36 | NUR ---
pt discharged via w/ RAKESH Liriano and at side. No further questions.
--- NOTE | 2020-04-03 13:50 | NUR ---
Biomass Power Plant Manager was notified by Hospitalist that patient ready for discharge today. MARISSA met with patient and read IM form aloud. Patient verbalized understanding then gave SW permission to sign on his behalf. MARISSA placed form in chart and provided copy to patient. MARISSA contacted Rolanda at [facility] who advised she would contact patient's either this afternoon or tomorrow morning. MARISSA also faxed discharge orders. MARISSA contacted patient's , Marie to provide update. Marie states she would like to speak with Hospitalist about concerns for discharge. Marie states she doesn't think patient has been getting around well enough to go home. MARISSA spoke with CORY Oliva who will follow up with Marie. MARISSA also contacted [facility] about working with patient prior to discharge. Later in the afternoon, MARISSA observed patient standing at his door, dressed and ready to go with his . MARISSA followed up with Marie and advised Rolanda from [facility] would be getting in contact with them soon. Marie verbalized understanding and denied any further questions or concerns at this time. Following discharge, MARISSA was notified by [employer] that they found an empty beer can in patient's room. MARISSA notified CORY Oliva. No additional needs at this time.
== END 2020-04-03 13:37 | disposition home health service (06) | DRG 432 ==
LOC: COL.ER 20:39 → MEDICAL 22:44
PROVIDERS: Emergency Medicine; Family Medicine; Internal Medicine Gastroenterology; Nurse Practitioner Family; Physician Assistant; ADMIT Student in an Organized Health Care Education/Training Program
PROC: 06L38CZ Occlusion of Esophageal Vein with Extraluminal Device, Via Natural or Artificial Opening Endoscopic (ICD-10-PCS; principal; 2020-03-30 12:00)
DX: K70.11 Alcoholic hepatitis with ascites (principal); K85.20 Alcohol induced acute pancreatitis without necrosis or infection; I85.11 Secondary esophageal varices with bleeding; K76.6 Portal hypertension; E87.2 Acidosis; D61.818 Other pancytopenia; E87.1 Hypo-osmolality and hyponatremia; E44.1 Mild protein-calorie malnutrition; K21.9 Gastro-esophageal reflux disease without esophagitis; N40.0 Benign prostatic hyperplasia without lower urinary tract symptoms; I10 Essential (primary) hypertension; E78.5 Hyperlipidemia, unspecified; F41.9 Anxiety disorder, unspecified; F10.10 Alcohol abuse, uncomplicated; F32.9 Major depressive disorder, single episode, unspecified; K52.9 Noninfective gastroenteritis and colitis, unspecified; E16.2 Hypoglycemia, unspecified; E87.6 Hypokalemia; E83.42 Hypomagnesemia; R00.0 Tachycardia, unspecified; I95.9 Hypotension, unspecified; K29.70 Gastritis, unspecified, without bleeding; K64.8 Other hemorrhoids
CPT/HCPCS: 99232-AI; 99233-AI; 99239; G0378; J1170; J2060; J2354; J2405; J2704; J3010; J3475; J7030; J7040; P9016; P9047; Q9967

== ENCOUNTER 2020-04-22 01:35 | Inpatient (IN) | payer MEDICARE, OTHER ==
[~2020-04-22] VITALS: Ht 172.7 cm; Wt 66.7 kg
[2020-04-22] VITALS (10 sets, daily range): BP systolic 110–141; BP diastolic 57–85; PULSE 95–114; TEMP 97.6–99.5
[~2020-04-22 01:35] MED LIST changes: +ALDACTONE 25MG25 M1 PO; +LASIX 20MG TABL20 MG PO; +ROXICODONE 55 MG/TAB PO
[2020-04-22 02:28] LABS: BASO % 0.4 % (0.0-2.0); EOS # 0.3 (0.0-0.7); GRAN # 7.3 (1.4-6.5); GRAN % 71.2 % (42.2-75.2); LYMPH # 1.5 (1.2-3.4); LYMPH % 14.6 % (20.0-51.0); MEAN CELL VOLUME 91 fl (80.0-100.0); MEAN CORPUSCULAR HGB CONC 35 g/dl (33.0-37.0); MEAN PLATELET VOLUME 10.9 fl (7.4-10.4); MONO # 1.1 (0.1-0.6); MONO % 10.2 % (1.7-9.3); PLATELET COUNT 111 K/mm3 (130-400); RED BLOOD COUNT 3.09 M/mm3 (4.20-5.60); REDCELL DISTRIBUTION WIDTH-CV 15.6 % (11.5-14.5)
[2020-04-22 02:30] LABS: HEMOGLOBIN 9.7 g/dl (13.5-18.0); MEAN CORPUSCULAR HEMOGLOBIN 31 pg (27.0-31.0)
[2020-04-22 02:32] LABS: INR 1.2 (0.8-3.0); PROTHROMBIN TIME 13.6 SECONDS (9.7-12.8)
[2020-04-22 02:42] LABS: COLLECTION METHOD CLEAN CATCH
[2020-04-22 02:48] LABS: PH 6 (5-8); SQUAMOUS EPITHELIAL None Seen /hpf; URINE APPEARANCE Clear; URINE BACTERIA None Seen /hpf; URINE BILIRUBIN Negative (NEGATIVE); URINE BLOOD Negative (NEGATIVE); URINE COLOR Yellow; URINE GLUCOSE Negative (NEGATIVE); URINE KETONE Negative (NEGATIVE); URINE LEUKOCYTE ESTERASE Negative (NEGATIVE); URINE NITRATE Negative (NEGATIVE); URINE PROTEIN(semi-quant) Negative (NEGATIVE); URINE RBC 0-2 /hpf
[2020-04-22 02:52] LABS: ALBUMIN 3.8 gm/dL (3.5-5.0); BILIRUBIN,TOTAL 2.7 mg/dL (0.0-1.0); CALCIUM 8.4 mg/dL (8.4-10.2); CREATININE, serum 0.73 (0.66-1.25); TOTAL PROTEIN 7.8 gm/dL (6.4-8.2)
[2020-04-22 02:53] LABS: POTASSIUM 2.8 mmol/L (3.4-5.0)
[2020-04-22 03:07] LABS: C-REACTIVE PROTEIN 4.1 mg/dL (0.0-0.9); MAGNESIUM 1.3 mg/dL (1.6-2.3)
--- NOTE | 2020-04-22 05:53 | NUR ---
Admitted to medical floor from ER with Dx: Pancreatitus,, pt states is in severe abd pain- abd very tender, distended, given Morphine 4 mg IV when pt arrived on floor with pain scale of 10/10. VSS, IV fluids of NS w/40meq KCL at 250cc/hr for just one bag then NS at 125cc/hr-
--- NOTE | 2020-04-22 07:00 | NUR ---
Report with RAKESH Youssef. Pt up in bathroom, denies needs. Call light in reach.
--- NOTE | 2020-04-22 08:00 | NUR ---
Assessment complete. Pt resting in bed, A&O x 4, slightly drowsy. Physical assessment unremarkable. Pt reports pain to lower left abd increasing again to an 6 out of 10. PRN pain medication administered per orders. IVF's infusing per orders through left forearm site without s/s of complications. No further needs reported. Call light in reach.
--- NOTE | 2020-04-22 14:14 | NUR ---
SW met with patient to complete intake. Patient provides that he lives in [place], [place] with his Marie [phone]. Patient provides that he does use a can every now and then, and receives assistance around the house from his due to his terminal illness. Patient states that he does have [place] agency that comes 2Xs per week to assist. SW provided that the SW team will assist in keeping that agency updated with patient information. Patient provides that his PCP is Dr. Harsha Lloyd, pharmacy is [facility], and that he is able to afford his medications. Patient states that he does not have a DPOA-HC and did not wish to appoint anyone at this time. Patient provided that he plans to go back to his home upon DC and states that his plan is to continue to obtain assistance from [place]. SW will continue to follow.
--- NOTE | 2020-04-22 16:08 | NUR ---
Pt reports IV pain medication works quickly but not very long, requests PO pain medication in between doses to help. Medication administered per orders. Pt resting in bed with eyes closed, resp even and unlabored. Arouses easily with light stimulation.
--- NOTE | 2020-04-22 19:05 | NUR ---
Report received from Lisa CAMERON. Pt sitting up in bed at this time. Beads of sweat noted to forehead, no visible tremors. Pt reports mild pain and declines any pain medication at this time. No other needs expressed. Call light in reach.
--- NOTE | 2020-04-22 21:32 | NUR ---
Assessment complete. Pt resting in bed. Fine tremors noted when pt lifts arms. Ambulated to restroom, gait unsteady. Bed alarm turned on once pt back in bed, educated to use call light before getting out of bed due to increasingly unsteady gait. Heart rate mildly elevated, BP in normal range, afebrile. A&Ox4. Heart rhythm regular, lung sounds clear, bowel sounds audible all quadrants. Denies nausea at this time. Reports moderate abdominal pain relieved by PRN morphine. Denies other needs at this time. Call light in reach.
[2020-04-23] VITALS (12 sets, daily range): BP systolic 111–133; BP diastolic 5–111; PULSE 91–127; TEMP 97.5–98.8
--- NOTE | 2020-04-23 05:43 | NUR ---
Having mild to moderate tremors. Heart rate remains mildly tachy in low 100s with occasional jumps to 120s. BPs remain stable aside from one slightly high BP of 124/92. Sleeping intermittently for short periods at a time. No nausea or vomiting. Occasional episodes of diaphoresis. Most CIWA scores this shift 3-4 with one score at 6. Ativan administered 3 times. Occasional complaints of moderate epigastric pain relieved by PRN Morphine which was administered twice this shift. Gait increasingly unsteady, bed alarm in use and pt encouraged to use call light before getting up.
[2020-04-23 06:55] LABS: BASO % 0.5 % (0.0-2.0); EOS # 0.2 (0.0-0.7); EOS % 3.6 % (0-4.0); GRAN # 3.3 (1.4-6.5); GRAN % 59.6 % (42.2-75.2); LYMPH # 1.2 (1.2-3.4); LYMPH % 21.5 % (20.0-51.0); MEAN CORPUSCULAR HGB CONC 32 g/dl (33.0-37.0); MEAN PLATELET VOLUME 10.9 fl (7.4-10.4); MONO # 0.8 (0.1-0.6); MONO % 14.4 % (1.7-9.3); PLATELET COUNT 70 K/mm3 (130-400); RED BLOOD COUNT 2.57 M/mm3 (4.20-5.60); REDCELL DISTRIBUTION WIDTH-CV 15.6 % (11.5-14.5)
[2020-04-23 06:56] LABS: HEMATOCRIT 24.6 % (42.0-52.0); HEMOGLOBIN 7.9 g/dl (13.5-18.0); MEAN CORPUSCULAR HEMOGLOBIN 31 pg (27.0-31.0)
[2020-04-23 07:00] LABS: MEAN CELL VOLUME 96 fl (80.0-100.0)
[2020-04-23 07:16] LABS: BILIRUBIN,TOTAL 2.6 mg/dL (0.0-1.0); CALCIUM 8.1 mg/dL (8.4-10.2); CREATININE, serum 0.54 (0.66-1.25); MAGNESIUM 1.9 mg/dL (1.6-2.3); POTASSIUM 4.1 mmol/L (3.4-5.0); TOTAL PROTEIN 6.5 gm/dL (6.4-8.2)
--- NOTE | 2020-04-23 09:58 | NUR ---
Pt assessment complete. Pt is sitting in bed guest at bedside. Pt is A/O x4. But guest of patient reports patient was hallucinating prior to nurse entering room. Pt denies any N/V at this time, but reports no appetite. Abdomen tender to touch. Reports pain 7/10. IVF infusing into LFA without issues. POC discussed with patient and his guest. No needs at this time. Call light within reach.
--- NOTE | 2020-04-23 13:00 | NUR ---
Bus Person Dishwasher and Lynette HO met with the patient to present the [employer] forms. The patient understood and signed the forms. Copies provided.
--- NOTE | 2020-04-23 16:14 | NUR ---
Pt continues to have frequency without any urine. Bladder scan shows 196. Pt continues to be confused. When asking if patient needs pain meds he points to the corner and says "no they have me on a concoxion."
--- NOTE | 2020-04-23 16:26 | NUR ---
Irrigator Head faxed updates to Rolanda with [facility]. SW contacted Rolanda and she confirmed they do have the patient for [facility].
--- NOTE | 2020-04-23 18:54 | NUR ---
Pt having increasing agitation/confusion. Out of bed several times through the afternoon. Very unsteady and shaky. CIWA protocol followed. No N/V. Morphine administered once during shift for abdominal pain. Pt did have one incontinent episode of diarrhea.
--- NOTE | 2020-04-23 19:15 | NUR ---
Report received from Maame CAMERON. Pt attempting to get out bed to bathroom. Became agitated when this RN attempted to place gait belt. Ambulated to restroom 1 assist. Sat on toilet without pulling brief down and had a watery BM in brief. 2 assist was needed to help pt get cleaned up and back to bed. Making confused statements and appears to be having hallucinations. Allowed this RN to place quality assurance monitor body back on. Ativan administered. Pt back in bed. Bed alarm on, call light in reach, room door open.
[2020-04-24] VITALS (9 sets, daily range): BP systolic 110–143; BP diastolic 60–99; PULSE 94–132; TEMP 97.6–98.8
--- NOTE | 2020-04-24 01:56 | NUR ---
Pt increasingly agitated throughout night. CIWA score max of 13 up to this point. Pt having significant tremors, tachycardia, occasional elevated BPs, insomnia, hallucinations, and is increasingly confused. Continues to get out of bed without calling. Gait unsteady and is sometimes hard to redirect. Having frequent loose BMs, very small in amount. Bed alarm on and room door open.
--- NOTE | 2020-04-24 06:23 | NUR ---
Alcohol detox max score of 13. Marked tremors, elevated HR and BP, hallucinations, confusion and agitation all present throughout night. Was awake for most of night but eventually fell asleep and slept for short periods at a time. Currently asleep in bed, rouses easily. Bed alarm on, call light in reach.
[2020-04-24 07:32] LABS: BASO % 0.8 % (0.0-2.0); EOS # 0.2 (0.0-0.7); EOS % 4.3 % (0-4.0); GRAN # 2.1 (1.4-6.5); GRAN % 54.1 % (42.2-75.2); HEMATOCRIT 23.8 % (42.0-52.0); HEMOGLOBIN 7.7 g/dl (13.5-18.0); LYMPH # 1.1 (1.2-3.4); LYMPH % 28.3 % (20.0-51.0); MEAN CELL VOLUME 96 fl (80.0-100.0); MEAN CORPUSCULAR HEMOGLOBIN 31 pg (27.0-31.0); MEAN CORPUSCULAR HGB CONC 32 g/dl (33.0-37.0); MEAN PLATELET VOLUME 10.3 fl (7.4-10.4); MONO # 0.5 (0.1-0.6); MONO % 12.2 % (1.7-9.3); PLATELET COUNT 79 K/mm3 (130-400); RED BLOOD COUNT 2.48 M/mm3 (4.20-5.60); REDCELL DISTRIBUTION WIDTH-CV 15.4 % (11.5-14.5)
[2020-04-24 07:46] LABS: ALBUMIN 2.6 gm/dL (3.5-5.0); BILIRUBIN,TOTAL 2.3 mg/dL (0.0-1.0); CALCIUM 8.2 mg/dL (8.4-10.2); CREATININE, serum 0.5 (0.66-1.25); POTASSIUM 3.8 mmol/L (3.4-5.0); TOTAL PROTEIN 5.9 gm/dL (6.4-8.2)
--- NOTE | 2020-04-24 08:31 | NUR ---
Scholastic Aptitude Test Grader faxed updates to Rolanda with [facility].
--- NOTE | 2020-04-24 10:05 | NUR ---
Initial visit; Patient resting, family member thanked for looking in on Sid and keeping hin in her prayers.
--- NOTE | 2020-04-24 13:03 | NUR ---
Pt sleeping upon entry, disoriented, shift assessment complete, left Pt bed in lowest position, alarm on.
--- NOTE | 2020-04-24 19:49 | NUR ---
Pt resting in the room, has noticable tremors, Pt did sleep this morning through early afternoon, Pt's cognation improved after sleep, with diminished tremors. no other issues noted.
--- NOTE | 2020-04-24 20:45 | NUR ---
Initial shift assessment done- has been resting quietly-- does continue with arm/hand tremors- VSS, slightly tachy at times, detox score 7 at this time. Pt is confused - non combative,, denies nausea, given a roxicodone for abd pain 12/20. IV fluids of NS at 75cc/hr-
[2020-04-25] VITALS (12 sets, daily range): BP systolic 114–148; BP diastolic 73–96; PULSE 88–111; TEMP 97.8–99.1
--- NOTE | 2020-04-25 05:07 | NUR ---
Has been resting well tonight- lastest detox score is 1 for slight hand tremor, VSS- denies pain- remains confused?/forgetful,non combative
[2020-04-25 06:49] LABS: BASO % 0.6 % (0.0-2.0); EOS # 0.2 (0.0-0.7); EOS % 6.1 % (0-4.0); GRAN # 1.4 (1.4-6.5); LYMPH % 31.5 % (20.0-51.0); MEAN CELL VOLUME 95 fl (80.0-100.0); MEAN CORPUSCULAR HGB CONC 32 g/dl (33.0-37.0); MEAN PLATELET VOLUME 10.2 fl (7.4-10.4); MONO # 0.5 (0.1-0.6); MONO % 16.2 % (1.7-9.3); PLATELET COUNT 89 K/mm3 (130-400); RED BLOOD COUNT 2.45 M/mm3 (4.20-5.60); REDCELL DISTRIBUTION WIDTH-CV 15.3 % (11.5-14.5)
[2020-04-25 06:51] LABS: HEMATOCRIT 23.2 % (42.0-52.0); HEMOGLOBIN 7.5 g/dl (13.5-18.0); MEAN CORPUSCULAR HEMOGLOBIN 31 pg (27.0-31.0)
[2020-04-25 07:00] LABS: ALBUMIN 2.5 gm/dL (3.5-5.0); BILIRUBIN,TOTAL 1.9 mg/dL (0.0-1.0); CREATININE, serum 0.49 (0.66-1.25); MAGNESIUM 1.6 mg/dL (1.6-2.3); POTASSIUM 3.8 mmol/L (3.4-5.0); TOTAL PROTEIN 5.7 gm/dL (6.4-8.2)
--- NOTE | 2020-04-25 09:00 | NUR ---
PT SCORED A 3 ON DETOX SCALE, PT REPORTING PAIN 5/10 IN ABD, DAMIEN GIVEN, PT AOX4, PT HAS VISIBLE TREMORS, PT REPORTING DIARRHEA DURING NIGHT AND X2 EP TODAY. UPON ENTRY OF ROOM PT WAS SLEEPING AND INC OF URINE AND STOOL. PT CLEANED UP AND BRIEF CHANGED. PT GAIT WEAK WITH CANE. PT ATE 50% OF BREAKFAST, NO OTHER NEEDS.
--- NOTE | 2020-04-25 10:22 | NUR ---
PT DROPPED ROXICODONE TABLET, NEITHER PT NOR I COULD FIND PILL. ANOTHER PULLED FROM [employer] AND GIVEN TO PT.
--- NOTE | 2020-04-25 15:10 | NUR ---
dental laboratory worker spoke with Sandra, advanced nursing professor at [facility] and confifmed that they admitted patient on 04/06 after his discharge on 04/03. Sandra reports that alf and physical therapy were seeing patient and that he was having a steady decline in physical and coginitive functioning at home. Spouse verbalized, to [place] this date, that she feels she cannot manage his care at home and that alf would be preferred. dental laboratory worker will revisit discharge plan with spouse and patient. Currently patient is having incontinence and declines to work with therapy this date.
--- NOTE | 2020-04-25 16:01 | NUR ---
Due to the patient's decline, Locker Room Manager attempted to contact the patient's to revisit the discharge plan. She did not answer, left message.
--- NOTE | 2020-04-25 17:07 | NUR ---
PT CONSISTENTLY SCORING 3-4 ON DETOX SCALE, PT PLEASANT, NO AGITATED, SLIGHTLY ANXIOUS, VISIBLE TREMOR, PT RECEIVED MORPHINE X1, ROXYCODONE X2, PT VITALS TAKEN Q2, NO OTHER NEEDS. TAKES MEDS WHOLE WITH WATER, NO N/V, DIARRHEA PRESENT.
--- NOTE | 2020-04-25 20:30 | NUR ---
Initial shift assessment done- states abd pain 11/19- will give roxicodone at this time- also requesting a sleeping pill,, will give trazadone as ordered- slight tremors of hands, Tele on,
[2020-04-26] VITALS (12 sets, daily range): BP systolic 104–143; BP diastolic 69–98; PULSE 91–136; TEMP 97.5–99.4
--- NOTE | 2020-04-26 05:41 | NUR ---
Very quiet night-- has been sleeping since roxicodone and trazadone was given last night- did have one liquid stool at start of shift- no Ativan given, detox scores from 1-3. VSS.
[2020-04-26 07:13] LABS: BASO % 0.6 % (0.0-2.0); EOS # 0.1 (0.0-0.7); EOS % 4.1 % (0-4.0); GRAN # 1.6 (1.4-6.5); GRAN % 51.7 % (42.2-75.2); LYMPH # 0.8 (1.2-3.4); LYMPH % 25.6 % (20.0-51.0); MEAN CELL VOLUME 96 fl (80.0-100.0); MEAN CORPUSCULAR HGB CONC 33 g/dl (33.0-37.0); MEAN PLATELET VOLUME 10.3 fl (7.4-10.4); MONO # 0.6 (0.1-0.6); MONO % 17.4 % (1.7-9.3); PLATELET COUNT 97 K/mm3 (130-400); RED BLOOD COUNT 2.47 M/mm3 (4.20-5.60); REDCELL DISTRIBUTION WIDTH-CV 15.8 % (11.5-14.5)
[2020-04-26 07:14] LABS: HEMATOCRIT 23.7 % (42.0-52.0); HEMOGLOBIN 7.7 g/dl (13.5-18.0); MEAN CORPUSCULAR HEMOGLOBIN 31 pg (27.0-31.0)
[2020-04-26 07:31] LABS: ALBUMIN 2.5 gm/dL (3.5-5.0); BILIRUBIN,TOTAL 1.6 mg/dL (0.0-1.0); CALCIUM 7.9 mg/dL (8.4-10.2); CREATININE, serum 0.56 (0.66-1.25); POTASSIUM 3.8 mmol/L (3.4-5.0); TOTAL PROTEIN 5.7 gm/dL (6.4-8.2)
--- NOTE | 2020-04-26 08:00 | NUR ---
PT HAS VISIBLE TREMOR, VITALS STABLE, DAMIEN GIVEN PT STATES "THIS NEVER AFFECTS ME, I TAKE 10MG AT HOME AND IT DOESN'T WORK". DIARRHEA PRESENT, PLACED ON CONTACT FOR CDIFF.
--- NOTE | 2020-04-26 10:23 | NUR ---
PT WANTED IMMODIUM FOR DIARRHEA, NOTIFIED CORY CRAWFORD. GAVE PAIN MEDICATION REQUESTED.
--- NOTE | 2020-04-26 12:15 | NUR ---
Rn Registry attended clinical rounds with the team. The patient's , Marie was on speaker phone. The patient's would like to discuss the patient possible going to post acute rehab with this SW. She states she will be visiting the patient and would like to discuss post acute rehab at that time.
--- NOTE | 2020-04-26 13:11 | NUR ---
PT C/O THROAT IRRITATION AND FEELING LIKE SOMETHING IS "RUNNING DOWN HIS THROAT". TY RAY AWARE.
--- NOTE | 2020-04-26 16:06 | NUR ---
Swimming Coach met with the patient and the patient's , Marie to discuss post acute rehab. The patient and Marie were agreeable to sending a referral to [facility] and to [facility]. Referrals sent. MARISSA contacted Ev from [facility] to inform them of the referral, left message. MARISSA informed [facility] Director. MARISSA collaborated the above information with the PA.
--- NOTE | 2020-04-26 17:45 | NUR ---
PT C/O PAIN DURING DAY. SCORING 3-4 TODAY, ABD ULTRASOUND SHOWED SMALL AMOUNT OF FLUID, PT AOX4, WORKED WITH PT/OT, SLEEPING MOST OF DAY, WATER AT BEDSIDE, CONTACT [employer] FOR CDIFF, STILL NEED STOOL SAMPLE. NO OTHER NEEDS.
--- NOTE | 2020-04-26 18:39 | NUR ---
PT HR JUMPING TO 160'S WITH ACTIVITY, JASON RUBIO CALLED, HR WENT DOWN TO 115, NO ACTION AT THIS TIME.
--- NOTE | 2020-04-26 18:54 | NUR ---
Report received from Stephanie CAMERON. Pt lying in bed watching tv. Denies needs at this time. Call light in reach.
--- NOTE | 2020-04-26 19:50 | NUR ---
Assessment complete. Pt sitting up in bed, appears calm. A&Ox4, heart rate and rhythm regular, lungs clear to auscultation. Mild tremors felt upon examination. Abdoment noted to be firm and distended. Pt denies shortness of breath or abdominal tenderness. Denies pain or other needs at this time. Call light in reach. Will continue to monitor.
[2020-04-26 19:54] LABS: CLOSTRIDIUM DIFF A/B POS; CLOSTRIDIUM DIFF A/B INTERP Toxigenic C.diff POS
[2020-04-27] VITALS (7 sets, daily range): BP systolic 116–142; BP diastolic 78–99; PULSE 97–118; TEMP 97.1–100.1
--- NOTE | 2020-04-27 03:16 | NUR ---
Pt up to restroom SBA with cane. Reports continued watery diarrhea. Moderate epigastric pain reported, roxicodone 5 mg administered. Heart rate increase to 150s when ambulating.
--- NOTE | 2020-04-27 05:43 | NUR ---
Up to restroom SBA several times over last few hours with watery stools. CIWA max score of 4 this shift with 0.5 mg Ativan administered x1. Heart rate remains mildly elevated between 100-110 at rest, with occasional increases up to 150s with activity. Complained of pain once this shift, relieved by PO roxicodone.
[2020-04-27 07:29] LABS: BASO % 0.4 % (0.0-2.0); EOS # 0.1 (0.0-0.7); EOS % 1.6 % (0-4.0); GRAN # 2.9 (1.4-6.5); GRAN % 64.7 % (42.2-75.2); LYMPH # 0.9 (1.2-3.4); LYMPH % 20.4 % (20.0-51.0); MEAN CELL VOLUME 94 fl (80.0-100.0); MEAN CORPUSCULAR HGB CONC 32 g/dl (33.0-37.0); MEAN PLATELET VOLUME 10.1 fl (7.4-10.4); MONO # 0.6 (0.1-0.6); MONO % 12.2 % (1.7-9.3); PLATELET COUNT 117 K/mm3 (130-400); RED BLOOD COUNT 2.78 M/mm3 (4.20-5.60); REDCELL DISTRIBUTION WIDTH-CV 15.8 % (11.5-14.5)
[2020-04-27 07:30] LABS: HEMATOCRIT 26.2 % (42.0-52.0); HEMOGLOBIN 8.5 g/dl (13.5-18.0); MEAN CORPUSCULAR HEMOGLOBIN 31 pg (27.0-31.0)
[2020-04-27 07:51] LABS: ALBUMIN 2.9 gm/dL (3.5-5.0); CALCIUM 8.4 mg/dL (8.4-10.2); CREATININE, serum 0.52 (0.66-1.25); POTASSIUM 3.9 mmol/L (3.4-5.0); TOTAL PROTEIN 6.4 gm/dL (6.4-8.2)
--- NOTE | 2020-04-27 08:56 | NUR ---
Patricia from [facility] bed reports their team states the patient is not ready for discharge due a fever the patient had last evening and he has C-Diff. They can re-valuate on Thursday if the patient is still hospitalized. MARISSA collaborated the above information with the team. SW attempted to call the patient's . She is on her way to visit the patient and would like to discuss the above information at that time. Plate Straightener attended clinical rounds with the team. The patient was started on oral Vancomycin. After rounds, MARISSA met with the patient and the patient's , Marie. They are agreeable to sending referrals to [facility] and [facility]. If these facilities cannot accept the plan is to return home with [facility]. Referrals faxed. MARISSA faxed updates to Rolanda with [facility]. MARISSA collaborated the above information with the team.
--- NOTE | 2020-04-27 10:06 | NUR ---
Hr Representative contacted Rolanda [facility] to provide updates.
--- NOTE | 2020-04-27 11:42 | NUR ---
Pt up with Phy Therapy, has C/O pain 7/10 pain medications given for relief. Shift assessments complete, left Pt call light in reach, bed in lowest position.
--- NOTE | 2020-04-27 12:41 | NUR ---
Tana from [facility] reports her team has declined the patient for post acute rehab.
--- NOTE | 2020-04-27 13:30 | NUR ---
Vick from [facility] reports they cannot accept the patient for post acute rehab. Shara from [facility] reports they decline the patient for post acute rehab.
--- NOTE | 2020-04-27 15:32 | NUR ---
Rodolfo from [facility] reports they cannot meet the patient's needs and would like to see the patient go to alcohol rehab then they may consider him. Juanis, [facility] Director reports she can revisit on Thursday. MARISSA met with the pateint's to provide update. MARISSA discussed sending referrals to other SNF. She was upset about the patient's denials at the [facility] that received the referrals. She did not want to send other referrals at this time and was upset. MARISSA collaborated the above information with the patient's nurse and PA.
--- NOTE | 2020-04-27 23:16 | NUR ---
Pt resting in bed, assessment completed. meds given per MAR, pt reporting pain a 7 out of 10 mostly in lower abdomen. abdomen is rounded and firm, bowel sounds active. heart sounds are regular and tachycardic, lung sounds are clear. no other needs at this time.
[2020-04-28] VITALS: BP 119/81; PULSE 139; TEMP 98
[2020-04-28 04:00] VITALS: BP 108/70; PULSE 108; TEMP 98.9
--- NOTE | 2020-04-28 05:42 | NUR ---
pt resting in bed, bed alarm on. pt calls for any needs or assistance. pt continues to report pain the abdominal area, gave morphine prn documented in SEP. contact precautions in place for cdiff. pt continues to have loose stools. detox protocol in place, pt scoring 1 to 2 during the night. heart rate consistantly tachycardic. no other needs at this time, will continue to monitor.
--- NOTE | 2020-04-28 07:00 | NUR ---
Report with RAKESH Shafer. Pt resting in bed with eyes closed, resp even and unlabored. Call light within reach.
[2020-04-28 08:15] VITALS: BP 117/74; PULSE 108; TEMP 98
--- NOTE | 2020-04-28 08:30 | NUR ---
Assessment complete. Pt sitting up in bed, A&O x 3. Physical assessment unremarkable. Pt reports pain to lower abd/epgastric region 7 out of 10. PRN pain medication administered per orders. Saline lock IV to left wrist/forearm without s/s of complications. No further needs reported. Call light in reach.
[2020-04-28 12:13] VITALS: BP 118/74; PULSE 106; TEMP 98.3
[2020-04-28 16:47] VITALS: BP 117/80; PULSE 107; TEMP 98
--- NOTE | 2020-04-28 17:45 | NUR ---
Pt reports epigastric pain was kept at a tolerable level by the oral pain medication but it is now increasing and pt requests IV medication. PRN medication administered per orders. No further needs reported. Call light in reach.
[2020-04-28 20:00] VITALS: BP 110/80; PULSE 100; TEMP 98.7
--- NOTE | 2020-04-28 21:39 | NUR ---
pt is alert and oriented, forgetful at times. assessment completed and medications given per SEP. pt states feeling some anxiety and pain a 6 out of 10 in the abdominal area. gave prn Atarax and morphine documented in SEP. heart sounds are regular and tachycardic, lung sounds clear. abdomen is distended and firm, pt reports continuing diarrhea. no other needs at this time, will continue to monitor.
[2020-04-29] VITALS (7 sets, daily range): BP systolic 95–119; BP diastolic 63–74; PULSE 92–114; TEMP 97.2–98.8
--- NOTE | 2020-04-29 05:54 | NUR ---
pt resting in bed most of night, states that he slept off and on. pt continues to report pain, gave morphine prn as pt requested. bed alarm on and call light within reach. no other needs at this time.
[2020-04-29 07:13] LABS: EOS # 0.1 (0.0-0.7); EOS % 2.7 % (0-4.0); GRAN # 2.5 (1.4-6.5); GRAN % 61.9 % (42.2-75.2); LYMPH # 0.9 (1.2-3.4); LYMPH % 22.1 % (20.0-51.0); MEAN CELL VOLUME 94 fl (80.0-100.0); MEAN CORPUSCULAR HGB CONC 33 g/dl (33.0-37.0); MEAN PLATELET VOLUME 10.4 fl (7.4-10.4); MONO # 0.5 (0.1-0.6); MONO % 11.8 % (1.7-9.3); PLATELET COUNT 119 K/mm3 (130-400); RED BLOOD COUNT 2.52 M/mm3 (4.20-5.60)
[2020-04-29 07:15] LABS: HEMATOCRIT 23.7 % (42.0-52.0); HEMOGLOBIN 7.8 g/dl (13.5-18.0); MEAN CORPUSCULAR HEMOGLOBIN 31 pg (27.0-31.0)
[2020-04-29 07:22] LABS: CALCIUM 8.4 mg/dL (8.4-10.2); CREATININE, serum 0.52 (0.66-1.25); POTASSIUM 3.7 mmol/L (3.4-5.0)
--- NOTE | 2020-04-29 08:01 | NUR ---
Pt assessment complete. Pt is sitting up in bed upon entry, he is A/O x3. His breathing is even and unlabored on RA. Pt denies SOB. Pain 7/10 to abdomen, PRN pain medications administered. Abdomen tender to palpation. No N/V. Pt reports having 4 watery stools overnight. POC discussed with patient. No needs at this time. Call light within reach.
--- NOTE | 2020-04-29 18:56 | NUR ---
Pt had uneventful day. Continued to have pain to abdomen, requiring PRN pain medications. Fewer stools today. No N/V. POC discussed with patient and his who verbalizes understanding. Fall precautions and contact precautions in place.
--- NOTE | 2020-04-29 20:30 | NUR ---
Initial shift assessment done- states having abd pain 02/19-wanting Morphine IV, takled with pt about trying to get off of the Morphine--will give the Morphine now but told patient to try the roxicodone during the night tonight. Up to bathroom with assist- somewhat unsteady on feet. Tele on.
[2020-04-30] VITALS (7 sets, daily range): BP systolic 91–127; BP diastolic 56–88; PULSE 84–132; TEMP 97.4–98.2
--- NOTE | 2020-04-30 05:25 | NUR ---
Did not sleep much last night-- was up to bathroom x3 for loose stool, did take a Roxicodone at 0115 along with Atarax, states needed pain med for abd pain 01/19--so another dose of Morphine IV was given at 0330-- has been resting since . At times tachy when up to bathroom but heart rate dose come down when back to bed-
[2020-04-30 07:04] LABS: BASO % 0.7 % (0.0-2.0); EOS # 0.1 (0.0-0.7); EOS % 1.8 % (0-4.0); GRAN # 2.8 (1.4-6.5); GRAN % 63.9 % (42.2-75.2); LYMPH % 21.7 % (20.0-51.0); MEAN CELL VOLUME 92 fl (80.0-100.0); MEAN CORPUSCULAR HGB CONC 33 g/dl (33.0-37.0); MEAN PLATELET VOLUME 10.2 fl (7.4-10.4); MONO # 0.5 (0.1-0.6); PLATELET COUNT 135 K/mm3 (130-400); RED BLOOD COUNT 2.48 M/mm3 (4.20-5.60); REDCELL DISTRIBUTION WIDTH-CV 16.2 % (11.5-14.5)
[2020-04-30 07:08] LABS: CALCIUM 8.7 mg/dL (8.4-10.2); CREATININE, serum 0.55 (0.66-1.25); HEMATOCRIT 22.9 % (42.0-52.0); HEMOGLOBIN 7.6 g/dl (13.5-18.0); MEAN CORPUSCULAR HEMOGLOBIN 31 pg (27.0-31.0); POTASSIUM 4.2 mmol/L (3.4-5.0)
--- NOTE | 2020-04-30 08:10 | NUR ---
Patient alert and oriented. had diarrhea this am. moderate tremor, >120HR. Patient seem irritated and anxious. Administered 1mg ativan IV. Patient said he does not have appetite for food this am.
--- NOTE | 2020-04-30 12:28 | NUR ---
Worldwide Chief Creative Officer was contacted by Marine ANN from the patient's PCP office. She informed this SW that the patient's , Marie was open to sending referrals outside of [place]. MARISSA faxed referrals to [facility], [facility], and to [place]. Nivia from [facility] reports they could accept the patient for post acute rehab as soon as he is stable. MARISSA collaborated the above information with the team.
--- NOTE | 2020-04-30 13:54 | NUR ---
Cloth Weigher contacted the patient's , Marie to provide update regarding [facility] acceptance. She was happy about it. SW contacted Marine arrington with Dr. Lloyd's office to provide the above update, left message.
--- NOTE | 2020-04-30 19:38 | NUR ---
RN was informed by tar worker patient has been accepted by [facility]. patient was started on Toprol 12.5mg for tachcardia. Morphine 4mg discontinued. Patient resting in bed at this time. Report given to Night NurseDomonique.
--- NOTE | 2020-04-30 20:30 | NUR ---
Initial shift assessment done-- states having abd pain 12/20--will give Roxicodone as ordered, also requesting sleeping meds at this time, Up to bathroom with assist, unsteady on feet- still having some loose/liquid stools. On contact Isolation for c-diff
[2020-05-01 03:57] VITALS: BP 94/59; PULSE 96; TEMP 97.9
--- NOTE | 2020-05-01 04:36 | NUR ---
Has been resting most of the night-- up to bathroom about 4 times this shift- still having loose stools. Just one does of Roxicodone given this shift for abd pain.
[2020-05-01 07:01] LABS: ALBUMIN 2.7 gm/dL (3.5-5.0); BILIRUBIN,TOTAL 1.5 mg/dL (0.0-1.0); CALCIUM 8.4 mg/dL (8.4-10.2); CREATININE, serum 0.56 (0.66-1.25); POTASSIUM 3.9 mmol/L (3.4-5.0); TOTAL PROTEIN 6.2 gm/dL (6.4-8.2)
[2020-05-01 07:02] LABS: BASO % 0.6 % (0.0-2.0); EOS # 0.1 (0.0-0.7); EOS % 2.2 % (0-4.0); GRAN % 64.6 % (42.2-75.2); LYMPH % 22.3 % (20.0-51.0); MEAN CELL VOLUME 91 fl (80.0-100.0); MEAN CORPUSCULAR HGB CONC 33 g/dl (33.0-37.0); MEAN PLATELET VOLUME 10.8 fl (7.4-10.4); MONO # 0.5 (0.1-0.6); MONO % 9.7 % (1.7-9.3); PLATELET COUNT 131 K/mm3 (130-400); RED BLOOD COUNT 2.52 M/mm3 (4.20-5.60); REDCELL DISTRIBUTION WIDTH-CV 16.3 % (11.5-14.5)
[2020-05-01 07:03] LABS: HEMATOCRIT 22.9 % (42.0-52.0); HEMOGLOBIN 7.5 g/dl (13.5-18.0); MEAN CORPUSCULAR HEMOGLOBIN 30 pg (27.0-31.0)
[2020-05-01 07:29] VITALS: BP 108/71; PULSE 91; TEMP 97.8
--- NOTE | 2020-05-01 09:30 | NUR ---
Assessment completed, alert/oriented, vital signs stable, cotinues to report generalized abd discomfort/ requested pain meds, abdomen is round and firm, BS +, patient report 6-7 loose stools over night and remains in C-Diff precautions, heart RRR/distal pulses are palpable, lungS CTA/no resp.difficulty noted, up to chair with PT at this time, plans [facility] [place] today
[2020-05-01] MEDS ORDERED: TOPROL XL 25MG25 MG PO (10:26)
[2020-05-01] MEDS ORDERED: VANCOCIN H125 MG/CAP PO (10:26)
[2020-05-01] MEDS ORDERED: EFFEXOR XR75 MG/CAP PO (10:27)
[2020-05-01] MEDS ORDERED: MELATIN 3 MG-11 TAB PO (10:28)
--- NOTE | 2020-05-01 10:30 | NUR ---
Barkeep faxed updates to REGINALDO Gonzáles at [facility]. MARISSA attended clinical rounds with the team. After rounds SW contacted nicci Gonzáles.
--- NOTE | 2020-05-01 11:38 | NUR ---
Nivia with [facility] contacted this SW. The team at [facility] is concerned about the patient's hemoglobin. SW to discuss this with the team.
[2020-05-01 11:53] VITALS: BP 108/71; PULSE 91; TEMP 97.8
--- NOTE | 2020-05-01 13:39 | NUR ---
Hospitalist contacted Nivia regarding the patient's status. [facility] can accept the patient today, 05/01 for post acute rehab. MARISSA presented the IM form to the patient and his , Marie. They understood and the patient signed the form. A copy was provided to the patient and original was placed in the chart. MARISSA faxed disharge orders. There are no additional needs at this time.
--- NOTE | 2020-05-01 13:45 | NUR ---
Patient is discharging to [facility], removed his IV and his tele, I have called and given report to receiving nursing staff, he is leaving with his and being transported to [place] by private vehicle, TIME CYCLE OPERATOR escorted them out the door
== END 2020-05-01 13:47 | disposition swing bed (61) | DRG 896 ==
LOC: COL.ER 01:35 → MEDICAL 03:46
PROVIDERS: Emergency Medicine; Internal Medicine; Internal Medicine Pulmonary Disease; Physician Assistant
DX: F10.139 Alcohol abuse with withdrawal, unspecified (principal); E43 Unspecified severe protein-calorie malnutrition; K86.1 Other chronic pancreatitis; K76.6 Portal hypertension; I85.10 Secondary esophageal varices without bleeding; G93.40 Encephalopathy, unspecified; D61.818 Other pancytopenia; I85.00 Esophageal varices without bleeding; A04.71 Enterocolitis due to Clostridium difficile, recurrent; K70.11 Alcoholic hepatitis with ascites; Y90.8 Blood alcohol level of 240 mg/100 ml or more; K76.0 Fatty (change of) liver, not elsewhere classified; K29.70 Gastritis, unspecified, without bleeding; N40.0 Benign prostatic hyperplasia without lower urinary tract symptoms; D53.9 Nutritional anemia, unspecified; I95.9 Hypotension, unspecified; R00.0 Tachycardia, unspecified; E83.42 Hypomagnesemia; E87.6 Hypokalemia; I10 Essential (primary) hypertension; K21.9 Gastro-esophageal reflux disease without esophagitis; F32.9 Major depressive disorder, single episode, unspecified; H81.09 Meniere's disease, unspecified ear; K64.8 Other hemorrhoids; F41.1 Generalized anxiety disorder; E78.5 Hyperlipidemia, unspecified; F17.210 Nicotine dependence, cigarettes, uncomplicated; Z68.22 Body mass index [BMI] 22.0-22.9, adult; Z79.891 Long term (current) use of opiate analgesic; Z88.8 Allergy status to other drugs, medicaments and biological substances
CPT/HCPCS: 99232-AI; 99233-AI; 99239; G0378; J1650; J2060; J2270; J2405; J3475; J3480; J7030

== ENCOUNTER → 2020-06-14 | Outpatient (CLI) | payer MEDICARE, OTHER ==
[~2020-06-14] VITALS: Ht 172.7 cm; Wt 74.1 kg
[~2020-06-14] MED LIST changes: +EFFEXOR XR75 MG/CAP PO; +MELATIN 3 MG-11 TAB PO; +ONE-A-DAY ESSE1 EACH PO; +TOPROL XL 25MG25 MG PO
[2020-06-14 13:34] VITALS: BP 138/98; PULSE 94
[2020-06-14 14:45] VITALS: BP 143/92; PULSE 90
[2020-06-14 15:21] LABS: PERITONEAL -POLYMORPHONUCLEAR 11.9 % (0-25); PERITONEAL FLUID RBC 2000 /mm3 (0-0)
== END ==
LOC: COL.RAD 13:01
PROVIDERS: Physician Assistant
DX: I85.00 Esophageal varices without bleeding (principal); K74.60 Unspecified cirrhosis of liver; K86.1 Other chronic pancreatitis

== ENCOUNTER → 2020-06-19 | Outpatient (CLI) | payer MEDICARE, OTHER ==
[~2020-06-19] VITALS: Ht 172.7 cm; Wt 74.9 kg
[2020-06-19 09:08] VITALS: BP 143/96; PULSE 100
[2020-06-19 10:39] VITALS: BP 154/94; PULSE 90
== END ==
LOC: COL.RAD 08:44
DX: R18.8 Other ascites (principal)

== ENCOUNTER 2020-06-29 07:06 | Day surgery (SDC) | payer MEDICARE, OTHER ==
[~2020-06-29] VITALS: Ht 172.7 cm; Wt 73.7 kg
[2020-06-29 07:34] VITALS: BP 126/90; PULSE 112; TEMP 98.6
[2020-06-29] MEDS ORDERED: CREON 36000 PO (07:36)
[2020-06-29] MEDS ORDERED: DAZIDOX10 MG PO (07:37)
[2020-06-29] MEDS ORDERED: VITAMIN D31000 I1 PO (07:39)
[2020-06-29] MEDS ORDERED: SINEMET 10/101 UDTAB PO (07:39)
[2020-06-29] MEDS ORDERED: FLORINEF ACETA0.1 MG PO (07:40)
[2020-06-29] MEDS ORDERED: MELATIN 3 MG-11 TAB PO (07:41)
[2020-06-29 09:35] VITALS: BP 122/88; PULSE 116; TEMP 98.5
--- NOTE | 2020-06-29 09:35 | NUR ---
Patient arrives back to SDC alert, denies pain or nausea. Patient monitor applied. Vitals stable. Patient given water, denies wanting anything to eat.
[2020-06-29 09:50] VITALS: BP 120/92; PULSE 110
--- NOTE | 2020-06-29 10:00 | NUR ---
Patient tolerated water without any nausea. Denies pain. Vitals stable. Reports he is ready to go home.
[2020-06-29 10:05] VITALS: BP 128/99; PULSE 103
--- NOTE | 2020-06-29 10:15 | NUR ---
Dismissal instructions gone over with patient. Patient voices understanding and all questions answered.
--- NOTE | 2020-06-29 10:20 | NUR ---
Patient discharged to patient enterance via wheelchair to private vehicle his friend is driving. Patient leaves thanking staff for services.
[2020-07-11] MEDS ORDERED: SINEMET 10/101 UDTAB PO (12:07)
[2020-08-03] MEDS ORDERED: INDERAL 20MG20 MG PO (13:39)
[2020-08-03] MEDS ORDERED: LASIX 20MG TABL20 MG PO (13:40)
[2020-08-09] MEDS ORDERED: ALDACTONE50 MG PO (14:02)
[2020-08-09] MEDS ORDERED: DAZIDOX10 MG PO (14:03)
== END 2020-06-29 10:20 | disposition home or self-care (01) ==
LOC: SDCO 07:06
DX: K74.60 Unspecified cirrhosis of liver (principal); I85.10 Secondary esophageal varices without bleeding; K92.0 Hematemesis; K25.9 Gastric ulcer, unspecified as acute or chronic, without hemorrhage or perforation; K29.70 Gastritis, unspecified, without bleeding; E78.00 Pure hypercholesterolemia, unspecified; K21.9 Gastro-esophageal reflux disease without esophagitis; K58.9 Irritable bowel syndrome, unspecified; K76.0 Fatty (change of) liver, not elsewhere classified; F17.210 Nicotine dependence, cigarettes, uncomplicated; I10 Essential (primary) hypertension; E78.5 Hyperlipidemia, unspecified; F32.9 Major depressive disorder, single episode, unspecified; F41.9 Anxiety disorder, unspecified; G89.29 Other chronic pain; I27.20 Pulmonary hypertension, unspecified; D64.9 Anemia, unspecified; Z88.8 Allergy status to other drugs, medicaments and biological substances; Z79.899 Other long term (current) drug therapy; Z20.828 Contact with and (suspected) exposure to other viral communicable diseases
CPT/HCPCS: J2704; J3010; J7030

== ENCOUNTER → 2020-07-11 | Outpatient (CLI) | payer MEDICARE, OTHER ==
[~2020-07-11] VITALS: Ht 172.7 cm; Wt 74.9 kg
[~2020-07-11] MED LIST changes: +CREON 36000 PO; +DAZIDOX10 MG PO; +FLORINEF ACETA0.1 MG PO; +SINEMET 10/101 UDTAB PO; +VITAMIN D31000 I1 PO
[2020-07-11 12:15] VITALS: BP 142/97; PULSE 102
[2020-07-11 13:44] VITALS: BP 143/97; PULSE 102
[2020-07-11 14:04] LABS: PERITONEAL -POLYMORPHONUCLEAR 14.1 % (0-25); PERITONEAL FLUID RBC 1000 /mm3 (0-0)
== END ==
LOC: COL.RAD 07-04 09:00
PROVIDERS: Internal Medicine Gastroenterology
DX: K74.60 Unspecified cirrhosis of liver (principal); K86.1 Other chronic pancreatitis

== ENCOUNTER 2020-07-27 10:22 | Inpatient (IN) | payer MEDICARE, OTHER ==
[2020-07-27] VITALS (246 sets, daily range): BP systolic 94–127; BP diastolic 62–95; PULSE 91–134; TEMP 97.6–98; O2SAT 94–100
[~2020-07-27] VITALS: Ht 170.2 cm; Wt 69.0 kg
[2020-07-27 11:15] LABS: BASO # 0.1 (0.0-0.2); BASO % 0.5 % (0.0-2.0); EOS # 0.1 (0.0-0.7); EOS % 0.5 % (0-4.0); GRAN # 10.3 (1.4-6.5); LYMPH # 1.3 (1.2-3.4); LYMPH % 9.7 % (20.0-51.0); MEAN CELL VOLUME 94 fl (80.0-100.0); MEAN CORPUSCULAR HGB CONC 34 g/dl (33.0-37.0); MEAN PLATELET VOLUME 10.2 fl (7.4-10.4); MONO % 7.9 % (1.7-9.3); PLATELET COUNT 131 K/mm3 (130-400); RED BLOOD COUNT 2.39 M/mm3 (4.20-5.60); REDCELL DISTRIBUTION WIDTH-CV 17.5 % (11.5-14.5)
[2020-07-27 11:20] LABS: INR 1.6 (0.8-3.0); PROTHROMBIN TIME 17.9 SECONDS (9.7-12.8)
[2020-07-27 11:22] LABS: PARTIAL THROMBOPLASTIN TIME 27.8 SECONDS (26.0-37.0)
[2020-07-27 11:25] LABS: HEMATOCRIT 22.4 % (42.0-52.0); HEMOGLOBIN 7.6 g/dl (13.5-18.0); MEAN CORPUSCULAR HEMOGLOBIN 32 pg (27.0-31.0)
[2020-07-27 11:26] LABS: ALANINE AMINOTRANSFERASE 24 U/L (4-49); ALBUMIN 2.3 gm/dL (3.5-5.0); ALKALINE PHOSPHATASE 252 U/L (50-136); ANION GAP 15 mmol/L (7-16); AST,SGOT 164 U/L (15-37); BILIRUBIN,TOTAL 3.2 mg/dL (0.0-1.0); BLOOD UREA NITROGEN 11 mg/dL (9-20); CALCIUM 7.5 mg/dL (8.4-10.2); CARBON DIOXIDE 20 mmol/L (22-30); CHLORIDE 93 mmol/L (98-107); CREATININE, serum 0.79 (0.66-1.25); GLUCOSE 179 mg/dL (74-106); LIPASE 345 U/L (23-300); POTASSIUM 3.2 mmol/L (3.4-5.0); SODIUM 128 mmol/L (137-145); TOTAL PROTEIN 5.6 gm/dL (6.4-8.2)
[2020-07-27 11:31] LABS: ALCOHOL(ethanol),MEDICAL < 10 mg/dL
[2020-07-27 11:39] LABS: TROPONIN-I < 0.012 ng/mL (0.000-0.035)
[2020-07-27 11:51] LABS: PERITONEAL -POLYMORPHONUCLEAR 6.7 % (0-25); PERITONEAL FLUID RBC 0 /mm3 (0-0)
--- NOTE | 2020-07-27 15:40 | NUR ---
Spoke with Dr. Camejo about patients arrival to ICU. Discussed current vent settings, requested propofol for sedation, updated given as far as vital signs and lab values. the patient is stable at this time. Dr. Camejo will be in around 1615 to see the patient. Will give a short update on the patient and get consent for central line to be placed once Dr. Camejo arrives. IF GI will place an OG, that would be helpful, but if they won't we will not place one due to esophageal variceas.
[2020-07-27 15:42] LABS: MEAN CELL VOLUME 96 fl (80.0-100.0); MEAN CORPUSCULAR HGB CONC 34 g/dl (33.0-37.0); MEAN PLATELET VOLUME 10.6 fl (7.4-10.4); PLATELET COUNT 142 K/mm3 (130-400); RED BLOOD COUNT 2.17 M/mm3 (4.20-5.60); REDCELL DISTRIBUTION WIDTH-CV 17.9 % (11.5-14.5)
[2020-07-27 15:46] LABS: HEMATOCRIT 20.8 % (42.0-52.0); MEAN CORPUSCULAR HEMOGLOBIN 32 pg (27.0-31.0)
--- NOTE | 2020-07-27 19:30 | NUR ---
Received report from RAKESH Covington. Patient intubated and sedated. All VS WNL. All medications verified and questions answered. Will resume care at this time.
--- NOTE | 2020-07-27 19:42 | NUR ---
Report given to Salvatore RN
--- NOTE | 2020-07-27 19:45 | NUR ---
Spoke With Arnold Khan, son of patient, who had patient code and wanted update on patient. Nurse gave status update on patient and stated patient was sedated and on the ventilator but was following simple commands and was able to answer yes or no questions by shaking his head. Nurse also stated patients VS WNL. Arnold stated he was appreciative of care and would call in the morning for updates on how the night went.
[2020-07-27 21:19] LABS: MEAN CELL VOLUME 92 fl (80.0-100.0); MEAN CORPUSCULAR HGB CONC 35 g/dl (33.0-37.0); MEAN PLATELET VOLUME 10.7 fl (7.4-10.4); PLATELET COUNT 70 K/mm3 (130-400); RED BLOOD COUNT 2.16 M/mm3 (4.20-5.60); REDCELL DISTRIBUTION WIDTH-CV 17.2 % (11.5-14.5)
[2020-07-27 21:29] LABS: POTASSIUM 3.8 mmol/L (3.4-5.0)
[2020-07-27 22:01] LABS: HEMATOCRIT 19.8 % (42.0-52.0); MEAN CORPUSCULAR HEMOGLOBIN 32 pg (27.0-31.0)
[2020-07-27 22:03] LABS: HEMOGLOBIN 6.9 g/dl (13.5-18.0)
--- NOTE | 2020-07-27 22:30 | NUR ---
Spoke with JOANNE Salinas in regards to critical hemoglobin level of 6.9. BODY AND FRAME MAN instructed to give 2nd ordered unit of PRBC and recheck H&H one hour after completion of blood product administrion.
[2020-07-28] VITALS (627 sets, daily range): BP systolic 99–122; BP diastolic 63–97; PULSE 81–111; TEMP 97–98.7; O2SAT 74–100
--- NOTE | 2020-07-28 00:42 | NUR ---
Called JOANNE Salinas in regards to patient not being able to tolerate lactulose. Patient has orders for 200gm/300mls of lactulose rectally Q6hrs. Called BARROW WORKER earlier in shift and asked if it would be appropriate to insert rectal tube and administer lactulose that way. BARROW WORKER stated she was okay with inserting rectal tube for lactulose adminsitration. Charge nurse inserted rectal tube earlier in shift. Charge nurse and hospitality housekeeper attempted to administer lactulose through rectal tube and were only able to adminsiter 50mls of lactulose through the tube. At 0000 charge nurse, hospitality housekeeper and nurse attempted to administer the rest of the dose for the lactulose. Charge nurse noted that patient was not tolerating lactulose well and that the rectal tube was catching stool but appeared bright red and bloody in appearance and GI bleed in smell, bloody stool was also noted to be coming out around tube. Administration of lactulose stopped at this time. Nurse called JOANNE and stated patient status with lactulose, BARROW WORKER stated to attempt administration with enema bag but follow up with eICU. Nurse then called EVE and gave status on patient and risk and insurance consultant EVE provider stated to hold lactulose for now. Nurse then called BARROW WORKER and gave her update on what EVE provider had said. Lactulose on hold for now.
[2020-07-28 04:24] LABS: ARTERIAL BLD GAS O2 SATURATION 99.1 % (92-100); ARTERIAL BLD GAS TCO2 CT 22.6; ARTERIAL BLOOD GAS BASE EXCESS 0.3 (-2-2); ARTERIAL BLOOD GAS HCO3 21.8 meq/L (22-26); ARTERIAL BLOOD GAS PCO2 24.6 mmHg (35-45); ARTERIAL BLOOD GAS pH 7.57 (7.35-7.45)
[2020-07-28 04:27] LABS: ARTERIAL BLOOD GAS PO2 167.1 mmHg (80-100)
[2020-07-28 05:25] LABS: BASO % 0.5 % (0.0-2.0); EOS # 0.1 (0.0-0.7); EOS % 1.6 % (0-4.0); GRAN # 3.2 (1.4-6.5); LYMPH # 1.4 (1.2-3.4); LYMPH % 25.4 % (20.0-51.0); MEAN CELL VOLUME 89 fl (80.0-100.0); MEAN CORPUSCULAR HGB CONC 35 g/dl (33.0-37.0); MEAN PLATELET VOLUME 11.5 fl (7.4-10.4); MONO # 0.8 (0.1-0.6); MONO % 13.6 % (1.7-9.3); PLATELET COUNT 72 K/mm3 (130-400); RED BLOOD COUNT 2.55 M/mm3 (4.20-5.60); REDCELL DISTRIBUTION WIDTH-CV 17.4 % (11.5-14.5)
[2020-07-28 05:27] LABS: HEMATOCRIT 22.8 % (42.0-52.0); MEAN CORPUSCULAR HEMOGLOBIN 31 pg (27.0-31.0)
[2020-07-28 05:28] LABS: INR 1.8 (0.8-3.0)
--- NOTE | 2020-07-28 05:33 | NUR ---
Sedation vacation not trialed on patient. Patient is very awake and alert and trying to grab at ET tube and throw legs out of bed to get up. VS WNL.
[2020-07-28 05:35] LABS: BILIRUBIN,TOTAL 3.8 mg/dL (0.0-1.0); CALCIUM 7.2 mg/dL (8.4-10.2); CREATININE, serum 1.02 (0.66-1.25); MAGNESIUM 1.2 mg/dL (1.6-2.3); PHOSPHOROUS 2.3 mg/dL (2.5-4.5); POTASSIUM 4.1 mmol/L (3.4-5.0); TOTAL PROTEIN 4.8 gm/dL (6.4-8.2)
--- NOTE | 2020-07-28 05:47 | NUR ---
Spoke with JOANNE Salinas in regards to patients recent H&H, no new orders in regards to H&H at this time. Relayed magnesium level of 1.2 and phosphorus level of 2.3. JOANNE stated she will look at chart and place orders for replacement.
--- NOTE | 2020-07-28 07:16 | NUR ---
ANTICIPATION OF PT STAYING INTUBATED UNTIL AFTER NEXT SURGERY, NO WEANING TRIAL THIS AM FOR THAT REASON
[2020-07-28 08:52] LABS: MEAN CELL VOLUME 92 fl (80.0-100.0); MEAN CORPUSCULAR HGB CONC 34 g/dl (33.0-37.0); MEAN PLATELET VOLUME 11.1 fl (7.4-10.4); PLATELET COUNT 76 K/mm3 (130-400); RED BLOOD COUNT 2.42 M/mm3 (4.20-5.60); REDCELL DISTRIBUTION WIDTH-CV 18.1 % (11.5-14.5)
[2020-07-28 09:04] LABS: HEMATOCRIT 22.3 % (42.0-52.0); HEMOGLOBIN 7.6 g/dl (13.5-18.0); MEAN CORPUSCULAR HEMOGLOBIN 31 pg (27.0-31.0)
--- NOTE | 2020-07-28 09:55 | NUR ---
PT EXTUBATED PER
--- NOTE | 2020-07-28 10:00 | NUR ---
RT and RN at bedside for extubation. Sedation off since 929, patient awake and alert, follows directions. Oral suction and ET suction performed and patient extubated at this time. Dr. Camejo aware, orders recieved
--- NOTE | 2020-07-28 12:29 | NUR ---
First visit from the lighting fixture installer. Ruth emersonyed with patient per patient's request. No other needs right now.
[2020-07-28 14:38] LABS: MEAN CELL VOLUME 94 fl (80.0-100.0); MEAN CORPUSCULAR HGB CONC 34 g/dl (33.0-37.0); MEAN PLATELET VOLUME 10.8 fl (7.4-10.4); PLATELET COUNT 86 K/mm3 (130-400); RED BLOOD COUNT 2.75 M/mm3 (4.20-5.60); REDCELL DISTRIBUTION WIDTH-CV 18.6 % (11.5-14.5)
[2020-07-28 14:40] LABS: HEMATOCRIT 25.8 % (42.0-52.0); HEMOGLOBIN 8.7 g/dl (13.5-18.0); MEAN CORPUSCULAR HEMOGLOBIN 32 pg (27.0-31.0)
--- NOTE | 2020-07-28 14:48 | NUR ---
MARISSA Moy) spoke with patient's Marie Jeffrey (P# [phone]) due to patient's intubation. Patient lives at home in [place] with his Marie. Patient already receives home health services through the [facility], and he uses a cane as well as a CPAP. Patient's Marie is his DPOA. Paperwork is on file. Patient's PCP is Dr. Lloyd. He uses [employer] for medications. Patient's reports no problems affording medications. Patient's reports that the plan is to return home with and resume home health services. denies questions or concerns at this time. Social work will continue to follow.
--- NOTE | 2020-07-28 16:25 | NUR ---
CONTACTED DR. WILLIS TO NOTIFY OF PT'S MOST RECENT HGB LEVEL. STATES TO HOLD 3RD UNIT OF PRBCS AT THIS TIME. WILL CONTINUE TO MONITOR PT'S H&H LEVEL.
--- NOTE | 2020-07-28 17:30 | NUR ---
Pt transferred to room 330 via bed on telemetry. pt on RA during transfer. RAKESH Salazar at bedside on arrival to room 330.
--- NOTE | 2020-07-28 18:00 | NUR ---
PATIENTED ADMITED INTO ROOM 330 FROM ICU. PATIENT IS A&O. VSS WITH TELE INPLACE. PATIENT HAS HX OF ETOH AND ESOPH. VARACIES. PATIENT REPORTED BLOODY EMESIS & STOOLS AND HAD AN EGD & 2 UNITS OF PRBC YESTERDAY. HGB 8.7 TODAY. BLOOD BANK HAS ANOTHER UNIT ON HOLD IF NEEDED. PATIENT REPORTS NO BLOODY EMESIS SINCE EGD. NOTED BLOODY STOOL IN RECTAL TUBE. MUKHERJEE TO DD. IV FLUIDS INFUSING VIA PUMP. NO C/O N/V. TOLERATING CLEAR LIQUID DIET. PATIENT ORIENTED TO ROOM. CALL LIGHT IN REACH.
--- NOTE | 2020-07-28 19:26 | NUR ---
PT RESTING IN BED, WATCHING TV. STATES HE WOULD LIKE HIS DOOR SHUT AND BLIND CLOSED WHICH WAS DONE FOR PT. IV FLUIDS INFUSING AT THIS TIME AT 50ML/HR. CALL LIGHT IN REACH.
[2020-07-28 21:06] LABS: HEMATOCRIT 24.1 % (42.0-52.0); HEMOGLOBIN 8.3 g/dl (13.5-18.0)
[2020-07-29 04:05] VITALS: BP 111/83; PULSE 110; TEMP 98.9
[2020-07-29 06:52] LABS: MEAN CELL VOLUME 92 fl (80.0-100.0); MEAN CORPUSCULAR HGB CONC 34 g/dl (33.0-37.0); MEAN PLATELET VOLUME 10.2 fl (7.4-10.4); PLATELET COUNT 83 K/mm3 (130-400); RED BLOOD COUNT 2.75 M/mm3 (4.20-5.60); REDCELL DISTRIBUTION WIDTH-CV 17.9 % (11.5-14.5)
[2020-07-29 06:54] LABS: INR 1.5 (0.8-3.0); PROTHROMBIN TIME 17.3 SECONDS (9.7-12.8)
[2020-07-29 06:55] LABS: HEMATOCRIT 25.4 % (42.0-52.0); HEMOGLOBIN 8.5 g/dl (13.5-18.0); MEAN CORPUSCULAR HEMOGLOBIN 31 pg (27.0-31.0)
[2020-07-29 07:00] LABS: ALBUMIN 2.3 gm/dL (3.5-5.0); BILIRUBIN,TOTAL 4.3 mg/dL (0.0-1.0); CALCIUM 7.7 mg/dL (8.4-10.2); CREATININE, serum 0.69 (0.66-1.25); MAGNESIUM 1.8 mg/dL (1.6-2.3); PHOSPHOROUS 2.2 mg/dL (2.5-4.5); POTASSIUM 4.2 mmol/L (3.4-5.0); TOTAL PROTEIN 5.6 gm/dL (6.4-8.2)
--- NOTE | 2020-07-29 07:20 | NUR ---
PT SLEPT MOST OF THE NIGHT WITH A FEW EPISODES OF BLOODY STOOL LEAKING AROUND THE RECTAL TUBE. SPOKE WITH JASON AND SHE SAID TO PULL THE RECTAL TUBE. 35ML WATER PULLED FROM RECTAL TUBE AND THEN DC'D. PT STATES HE FEELS SOME PRESSURE. NO LEAKING OF BLOODY BM SINCE TUBE PULLED. MUKHERJEE CATH DRAINING CLEAR, YELLOW URINE. EYES APPEAR A LITTLE JAUNDICE. BED ALARM ON. CALL LIGHT IN REACH. IV FLUIDS CONT AT 50ML/HR.
[2020-07-29 07:46] LABS: BAND 1 % (0-10); LYMPHOCYTE 11 % (20.0-51.0); NEUTROPHILS 83 % (42.0-75.2)
[2020-07-29 07:47] LABS: PLATELET ESTIMATE DECREASED (NORMAL)
[2020-07-29 07:48] LABS: ANISOCYTOSIS 1+; HYPOCHROMIA 1+
--- NOTE | 2020-07-29 08:00 | NUR ---
Patient laying in bed. A&Ox3. VSS. IV CDI, fluids infusing. Reporting pain in abdomen, not requesting any pain medication. Patient had a medium liquid BM, dark tarry. Doctor Disbrow aware. Patient on clear liquids, advancing to soft. Patient wanting to try a soft diet for lunch. No further needs expressed from the patient. Call light within reach
[2020-07-29 08:39] VITALS: BP 126/70; PULSE 113; TEMP 97.6
--- NOTE | 2020-07-29 10:00 | NUR ---
Berg removed, pericare provided before and after removal. Patient tolerated well. 10 ml balloon removed from the balloon. Will monitor urine output. Call light within reach
[2020-07-29 12:37] VITALS: BP 110/75; PULSE 107; TEMP 98.2
[2020-07-29 17:07] VITALS: BP 114/76; PULSE 99; TEMP 98.1
--- NOTE | 2020-07-29 17:30 | NUR ---
Patient slept most of the shift. Has had several liquid loose stools, bloody. Reporting discomfort in abdomen, no pain medication requested. A&Ox4. VSS. IV CDI, fluids infusing. Patient voiding after tilley removed. No further questions expressed from the patient. Call light within reach
[2020-07-29 18:56] LABS: CLOSTRIDIUM DIFF A/B NEG; CLOSTRIDIUM DIFF A/B INTERP NonToxigenic C.diff
--- NOTE | 2020-07-29 19:29 | NUR ---
RECEIVED CHANGE OF SHIFT REPORT FROM DAY SHIFT NURSERADHA.
[2020-07-29 19:47] VITALS: BP 103/75; PULSE 103; TEMP 98
[2020-07-29 23:05] VITALS: BP 123/79; PULSE 99; TEMP 98.6
[2020-07-30] VITALS (7 sets, daily range): BP systolic 105–134; BP diastolic 63–78; PULSE 92–107; TEMP 97.6–98.5
--- NOTE | 2020-07-30 07:00 | NUR ---
Report received from RAKESH Helton. PT in bed resting with no needs. Lights off, will continue to monitor.
--- NOTE | 2020-07-30 07:01 | NUR ---
CHANGE OF SHIFT REPORT GIVEN TO DAY SHIFT NURSE, CAT.
[2020-07-30 07:38] LABS: INR 1.5 (0.8-3.0); PROTHROMBIN TIME 16.4 SECONDS (9.7-12.8)
[2020-07-30 07:39] LABS: BASO % 0.8 % (0.0-2.0); EOS # 0.1 (0.0-0.7); EOS % 1.8 % (0-4.0); GRAN # 3.2 (1.4-6.5); GRAN % 64.6 % (42.2-75.2); LYMPH % 19.5 % (20.0-51.0); MEAN CELL VOLUME 96 fl (80.0-100.0); MEAN CORPUSCULAR HGB CONC 33 g/dl (33.0-37.0); MEAN PLATELET VOLUME 10.4 fl (7.4-10.4); MONO # 0.6 (0.1-0.6); MONO % 12.3 % (1.7-9.3); PLATELET COUNT 93 K/mm3 (130-400); RED BLOOD COUNT 2.69 M/mm3 (4.20-5.60)
[2020-07-30 07:41] LABS: HEMATOCRIT 25.7 % (42.0-52.0); HEMOGLOBIN 8.4 g/dl (13.5-18.0); MEAN CORPUSCULAR HEMOGLOBIN 31 pg (27.0-31.0)
[2020-07-30 08:00] LABS: ALBUMIN 2.4 gm/dL (3.5-5.0); BILIRUBIN,TOTAL 4.6 mg/dL (0.0-1.0); CALCIUM 8.2 mg/dL (8.4-10.2); CREATININE, serum 0.69 (0.66-1.25); MAGNESIUM 1.7 mg/dL (1.6-2.3); PHOSPHOROUS 2.8 mg/dL (2.5-4.5); POTASSIUM 4.2 mmol/L (3.4-5.0); TOTAL PROTEIN 5.9 gm/dL (6.4-8.2)
--- NOTE | 2020-07-30 09:15 | NUR ---
Assessment charted. Pt resting in bed, states he feels tired and knows he needs to eat more but does not enjoy the food he has here. ABd is distended anf firm and tender to touch. Pt INT to LW was painful, removed sine there are 2 other access sites. Octreotide gtt to LFA and INT to RW. PT requestign to remove CIWA protocol and telemetry. Will ask hospitalis tand continue to monitor.
--- NOTE | 2020-07-30 12:35 | NUR ---
Military Pay Clerk contacted Rolanda with [facility] to follow up regarding the patient. Rolanda reports that they discharged the patient due to noncompliance in May 2020. SW contacted the patient's , Marie to follow up regarding the discharge plan. The plan is to return home with home health. The patient was set up with [facility] after his stay at [facility]. Marie would like to use [facility] as the home health agency again. Referral faxed.
--- NOTE | 2020-07-30 14:07 | NUR ---
Neetu, at [facility], reports that they are able to accept the patient for services.
--- NOTE | 2020-07-30 17:37 | NUR ---
Pt back to room at 1715 from paracentesis. Tolerated well, able to pull off over 6 L of fluid from abd. Resting in bed, will give bedside shift report to nightshift nurse who will resume care.
--- NOTE | 2020-07-30 19:15 | NUR ---
RECEIVED CHANGE OF SHIFT REPORT FROM DAY SHIFT NURSE.
[2020-07-31 00:38] VITALS: BP 125/73; PULSE 115; TEMP 97.7
--- NOTE | 2020-07-31 01:15 | NUR ---
PATIENT REQUESTED/GIVEN PAIN MEDS FOR C/O LEVEL 8-9/10 LOWER MIDLINE ABD PAIN THAT STARTED AFTER MECH SOFT SUPPER. REPORTED HAS HAD X5-6 SMALL LIQUID, DARK "TARRY LOOKING" STOOL, ALSO OBSERVED PATIENT EXPECTORATED EMESIS OF YELLOW MURKY WITH WHITISH SEMIOVAL SHAPED DEBRIS IN EMESIS, HAD RECENTLY SWALLOWED PRN MED OXICODONE JUST PRIOR TO EMESIS BUT DID NOT SEE EVIDENCE OF PILL IN EMESIS. ZOFRAN GIVEN FOR C/O NAUSEA AFTER VOMITING.
--- NOTE | 2020-07-31 01:52 | NUR ---
INFORMED ONCALL HOSP PROVIDER OF PATIENT'S RECENT ABD C/O, INFORMED OF PATIENT'S ALSO HAVING PAIN WITH LIGHT PALPATION TO ABD THAT PATIENT REPORTS IS "RADIATING" THROUGHOUT ABD. PATIENT NO ALLEVIATED BY ORAL PAIN MED.
[2020-07-31 03:15] VITALS: BP 122/75; PULSE 107; TEMP 97.8
[2020-07-31 03:31] LABS: MEAN CELL VOLUME 94 fl (80.0-100.0); MEAN CORPUSCULAR HGB CONC 34 g/dl (33.0-37.0); MEAN PLATELET VOLUME 9.8 fl (7.4-10.4); PLATELET COUNT 91 K/mm3 (130-400); RED BLOOD COUNT 2.65 M/mm3 (4.20-5.60); REDCELL DISTRIBUTION WIDTH-CV 17.8 % (11.5-14.5)
[2020-07-31 03:37] LABS: HEMATOCRIT 24.9 % (42.0-52.0); HEMOGLOBIN 8.4 g/dl (13.5-18.0); INR 1.6 (0.8-3.0); MEAN CORPUSCULAR HEMOGLOBIN 32 pg (27.0-31.0); PROTHROMBIN TIME 17.7 SECONDS (9.7-12.8)
[2020-07-31 03:43] LABS: ALBUMIN 2.4 gm/dL (3.5-5.0); BILIRUBIN,TOTAL 4.6 mg/dL (0.0-1.0); CREATININE, serum 0.7 (0.66-1.25)
--- NOTE | 2020-07-31 07:14 | NUR ---
CHANGE OF SHIFT REPORT GIVEN TO DAY SHIFT NURSEVERNELL.
[2020-07-31 07:43] VITALS: BP 111/68; PULSE 104; TEMP 97.9
[2020-07-31 12:10] VITALS: BP 113/64; PULSE 102; TEMP 97.5
[2020-07-31 15:49] VITALS: BP 115/65; PULSE 90; TEMP 97.8
--- NOTE | 2020-07-31 18:00 | NUR ---
Patient has been doing well today. His pain has been controlled with roxicodone. He had one bowel movement this morning, no blood noted. He is starting solid foods again this evening.He tolerated a clear liquid lunch without issues. No complaints of nausea today. He has been independent in the. He is hoping to discharge tomorrow. No other changes at this time. Call light within reach.
--- NOTE | 2020-07-31 18:49 | NUR ---
RECEIVED CHANGE OF SHIFT REPORT FROM DAY SHIFT NURSE.
[2020-07-31 19:07] VITALS: BP 129/78; PULSE 98; TEMP 97.5
[2020-08-01 01:06] VITALS: BP 113/64; PULSE 100; TEMP 98.7
[2020-08-01 05:00] VITALS: BP 119/64; PULSE 98; TEMP 98.5
--- NOTE | 2020-08-01 07:17 | NUR ---
CHANGE OF SHIFT REPORT GIVEN TO DAY SHIFT NURSEGROVER.
[2020-08-01 07:21] VITALS: BP 103/70; PULSE 97; TEMP 97.7
[2020-08-01 07:47] LABS: BASO % 0.5 % (0.0-2.0); EOS # 0.1 (0.0-0.7); EOS % 1.9 % (0-4.0); GRAN # 2.2 (1.4-6.5); GRAN % 52.3 % (42.2-75.2); LYMPH # 1.2 (1.2-3.4); MEAN CELL VOLUME 96 fl (80.0-100.0); MEAN CORPUSCULAR HGB CONC 33 g/dl (33.0-37.0); MEAN PLATELET VOLUME 10.1 fl (7.4-10.4); MONO # 0.7 (0.1-0.6); MONO % 16.8 % (1.7-9.3); PLATELET COUNT 95 K/mm3 (130-400); RED BLOOD COUNT 2.67 M/mm3 (4.20-5.60); REDCELL DISTRIBUTION WIDTH-CV 17.3 % (11.5-14.5)
[2020-08-01 07:51] LABS: HEMATOCRIT 25.7 % (42.0-52.0); HEMOGLOBIN 8.4 g/dl (13.5-18.0); MEAN CORPUSCULAR HEMOGLOBIN 31 pg (27.0-31.0)
[2020-08-01 08:03] LABS: ALBUMIN 2.3 gm/dL (3.5-5.0); BILIRUBIN,TOTAL 3.8 mg/dL (0.0-1.0); CREATININE, serum 0.6 (0.66-1.25); TOTAL PROTEIN 5.7 gm/dL (6.4-8.2)
--- NOTE | 2020-08-01 08:40 | NUR ---
Patient in bed resting. Alert and oriented x 3. Assessment complete. Denies pain at this time. Denies further needs at this time.
[2020-08-01] MEDS ORDERED: ALDACTONE 100M100 MG PO (10:56)
[2020-08-01] MEDS ORDERED: LASIX 40MG TABL40 MG PO (10:56)
[2020-08-01 11:40] VITALS: BP 109/69; PULSE 101; TEMP 98.5
[2020-08-01] MEDS ORDERED: ALDACTONE50 MG PO (13:36)
[2020-08-01] MEDS ORDERED: LASIX 20MG TABL20 MG PO (13:37)
[2020-08-01] MEDS ORDERED: INDERAL 20MG20 MG PO (13:38)
--- NOTE | 2020-08-01 15:17 | NUR ---
Patient to discharge home today. MARISSA contacted Neetu at [facility] and faxed discharge orders.
--- NOTE | 2020-08-01 15:20 | NUR ---
Discharge education provided to patient. Educated on when to call provider and follow up appointments. Educated on medication changes and new medications. All questions answered. Denies pain or further needs at this time. INT discontinued, catheter tip intact. Denies further needs at this time. Patient out by wheelchair.
[2020-08-03] MEDS ORDERED: INDERAL 20MG20 MG PO (13:39)
[2020-08-03] MEDS ORDERED: LASIX 20MG TABL20 MG PO (13:40)
== END 2020-08-01 15:21 | disposition home health service (06) | DRG 432 ==
LOC: COL.ER 10:22 → ICU 12:08 → JCC 07-28 18:00
PROVIDERS: Emergency Medicine; Internal Medicine Gastroenterology; Internal Medicine Pulmonary Disease; Nurse Practitioner Family; Physician Assistant; ADMIT Family Medicine
PROC: 3E0G8TZ Introduction of Destructive Agent into Upper GI, Via Natural or Artificial Opening Endoscopic (ICD-10-PCS; 2020-07-27)
PROC: 06L38CZ Occlusion of Esophageal Vein with Extraluminal Device, Via Natural or Artificial Opening Endoscopic (ICD-10-PCS; principal; 2020-07-27 14:00)
DX: K70.31 Alcoholic cirrhosis of liver with ascites (principal); I85.11 Secondary esophageal varices with bleeding; E43 Unspecified severe protein-calorie malnutrition; K76.6 Portal hypertension; E87.1 Hypo-osmolality and hyponatremia; D62 Acute posthemorrhagic anemia; K86.0 Alcohol-induced chronic pancreatitis; E87.2 Acidosis; Z66 Do not resuscitate; E87.6 Hypokalemia; F32.9 Major depressive disorder, single episode, unspecified; F41.9 Anxiety disorder, unspecified; R25.1 Tremor, unspecified; I10 Essential (primary) hypertension; K21.9 Gastro-esophageal reflux disease without esophagitis; N40.0 Benign prostatic hyperplasia without lower urinary tract symptoms; E78.5 Hyperlipidemia, unspecified; K70.40 Alcoholic hepatic failure without coma; Z20.822 Contact with and (suspected) exposure to COVID-19
CPT/HCPCS: 99223-AI; 99232-AI; 99233-AI; 99239; C9113; J0330; J0696; J1170; J2250; J2354; J2370; J2405; J2704; J3010; J3475; J3480; J7030; J7040; J7050; P9016; Q9967

== ENCOUNTER → 2020-08-03 | Outpatient (CLI) | payer MEDICARE, OTHER ==
[~2020-08-03] VITALS: Ht 172.7 cm; Wt 69.3 kg
[~2020-08-03] MED LIST changes: +ALDACTONE 100M100 MG PO; +ALDACTONE50 MG PO; +INDERAL 20MG20 MG PO; +LASIX 40MG TABL40 MG PO
[2020-08-03 13:42] VITALS: BP 108/73; PULSE 76
[2020-08-03 15:16] VITALS: BP 102/67; PULSE 88
== END ==
LOC: COL.RAD 13:15
DX: K86.0 Alcohol-induced chronic pancreatitis (principal); K70.11 Alcoholic hepatitis with ascites

== ENCOUNTER → 2020-08-09 | Outpatient (CLI) | payer MEDICARE, OTHER ==
[~2020-08-09] VITALS: Ht 170.2 cm; Wt 65.8 kg
[2020-08-09 14:08] VITALS: BP 102/68; PULSE 85
[2020-08-09 15:33] VITALS: BP 103/67; PULSE 87
== END ==
LOC: COL.RAD 13:23
DX: K86.0 Alcohol-induced chronic pancreatitis (principal); K70.11 Alcoholic hepatitis with ascites

== ENCOUNTER → 2020-08-15 | Outpatient (CLI) | payer MEDICARE, OTHER ==
[~2020-08-15] VITALS: Ht 172.7 cm; Wt 63.8 kg
[2020-08-15 12:26] VITALS: BP 105/71; PULSE 103
[2020-08-15 13:24] VITALS: BP 95/70; PULSE 59
== END ==
LOC: COL.RAD 12:00
DX: K86.0 Alcohol-induced chronic pancreatitis (principal); K70.11 Alcoholic hepatitis with ascites

== ENCOUNTER → 2020-08-22 | Outpatient (CLI) | payer MEDICARE, OTHER ==
[~2020-08-22] VITALS: Ht 170.2 cm; Wt 59.0 kg
[2020-08-22 12:11] VITALS: BP 109/80; PULSE 134
== END ==
LOC: COL.RAD 11:45
DX: K86.0 Alcohol-induced chronic pancreatitis (principal); K70.11 Alcoholic hepatitis with ascites

== ENCOUNTER 2020-08-24 10:32 | Day surgery (SDC) | payer MEDICARE, OTHER ==
[~2020-08-24] VITALS: Ht 172.7 cm; Wt 59.6 kg
[2020-08-24 11:08] VITALS: BP 106/75; PULSE 121; TEMP 98.6
[2020-08-24 13:50] VITALS: BP 112/79; PULSE 119; TEMP 98.3
--- NOTE | 2020-08-24 13:50 | NUR ---
PATIENT TRANSPORTED PER CART FROM GI SUITE 2 TO BAY 4 ACCOMPANIED BY ENDO RN. PATIENT AMBULATED FROM CART TO CHAIR WITH 2 ASSIST. SLOW SEMI STEADY GAIT. MONITORS APPLIED. VSS ON ROOM AIR. PATIENT TALKING WITH STAFF.
[2020-08-24 14:00] VITALS: BP 104/78; PULSE 118
--- NOTE | 2020-08-24 14:00 | NUR ---
VSS ON ROOM AIR. PATIEHT DENIES DISCOMFORT AND NAUSEA. PATIENT GIVEN APPLESAUCE AND WATER. EATS AND DRINKS WITHOUT PROBLEMS. PATIENT CALLED AND WILL BE HEADED TO HOSPITAL TO NURSING CENTER TUTOR PATIENT.
[2020-08-24 14:15] VITALS: BP 106/74; PULSE 114
--- NOTE | 2020-08-24 14:15 | NUR ---
VSS ON ROOM AIR. PATIENT EATS AND DRINKS WITHOUT PROBLEMS. PATIENT DENIES DISCOMFORT AND NAUSEA. CALLED AND UPDATED.
[2020-08-24 14:30] VITALS: BP 109/74; PULSE 109
--- NOTE | 2020-08-24 14:30 | NUR ---
VSS ON ROOM AIR. PATIENT WRAPPED IN WARMED BLANKETS. PATIENT'S IS WAITING. DISHCHARGE INSTRUCTIONS GIVEN VERBAL AND DISCHARGE PACKET PROVIDED. QUESTIONS ANSWERED AND PATIENT VOICED UNDERSTANDING. 1437 IV DC'D WITH CATHETER TIP INTACT. PRESSURE AND BANDAGE APPLIED. [address] CLOTHES[address] 1450 PATIENT DISCHARGED PER WHEEL CHAIR ACCOMPANIED BY AMB RN TO CAR DRIVEN BY .
== END 2020-08-24 14:50 | disposition home or self-care (01) ==
LOC: SDCO 10:32
DX: K74.60 Unspecified cirrhosis of liver (principal); I85.11 Secondary esophageal varices with bleeding; K76.6 Portal hypertension; K72.90 Hepatic failure, unspecified without coma; K29.31 Chronic superficial gastritis with bleeding; K86.1 Other chronic pancreatitis; E78.5 Hyperlipidemia, unspecified; K21.9 Gastro-esophageal reflux disease without esophagitis; E78.00 Pure hypercholesterolemia, unspecified; Z20.822 Contact with and (suspected) exposure to COVID-19; K58.9 Irritable bowel syndrome, unspecified; F17.290 Nicotine dependence, other tobacco product, uncomplicated; Z79.899 Other long term (current) drug therapy; Z88.8 Allergy status to other drugs, medicaments and biological substances; Z91.048 Other nonmedicinal substance allergy status
CPT/HCPCS: J2704; J7030

== ENCOUNTER 2020-08-27 17:41 | Observation (INO) | payer MEDICARE, OTHER ==
[~2020-08-27] VITALS: Ht 172.7 cm; Wt 59.1 kg
[2020-08-27 18:55] LABS: BASO % 0.4 % (0.0-2.0); EOS % 0.6 % (0-4.0); GRAN # 5.1 (1.4-6.5); GRAN % 71.5 % (42.2-75.2); LYMPH # 1.2 (1.2-3.4); LYMPH % 16.2 % (20.0-51.0); MEAN CELL VOLUME 86 fl (80.0-100.0); MEAN CORPUSCULAR HGB CONC 35 g/dl (33.0-37.0); MEAN PLATELET VOLUME 9.6 fl (7.4-10.4); MONO # 0.8 (0.1-0.6); PLATELET COUNT 94 K/mm3 (130-400); RED BLOOD COUNT 3.02 M/mm3 (4.20-5.60); REDCELL DISTRIBUTION WIDTH-CV 15.6 % (11.5-14.5)
[2020-08-27 19:00] LABS: HEMOGLOBIN 9.1 g/dl (13.5-18.0); MEAN CORPUSCULAR HEMOGLOBIN 30 pg (27.0-31.0)
[2020-08-27 19:06] LABS: INR 1.9 (0.8-3.0); PROTHROMBIN TIME 21.2 SECONDS (9.7-12.8)
[2020-08-27 19:07] LABS: ALANINE AMINOTRANSFERASE 40 U/L (4-49); ALBUMIN 2.8 gm/dL (3.5-5.0); ALKALINE PHOSPHATASE 563 U/L (50-136); ANION GAP 10 mmol/L (7-16); AST,SGOT 335 U/L (15-37); BILIRUBIN,TOTAL 3.4 mg/dL (0.0-1.0); BLOOD UREA NITROGEN 14 mg/dL (9-20); CALCIUM 7.8 mg/dL (8.4-10.2); CARBON DIOXIDE 29 mmol/L (22-30); GLUCOSE 110 mg/dL (74-106); SODIUM 122 mmol/L (137-145)
[2020-08-27 19:09] LABS: PARTIAL THROMBOPLASTIN TIME 28.8 SECONDS (26.0-37.0)
[2020-08-27 19:15] LABS: CHLORIDE 83 mmol/L (98-107); POTASSIUM 2.9 mmol/L (3.4-5.0)
[2020-08-27 19:23] LABS: TROPONIN-I < 0.012 ng/mL (0.000-0.035)
[2020-08-27 19:30] VITALS: BP 107/70; PULSE 124
[2020-08-27 21:11] LABS: COLLECTION METHOD CLEAN CATCH
[2020-08-27 21:25] LABS: PH 8 (5-8); SQUAMOUS EPITHELIAL 0-2 /hpf; URINE APPEARANCE Clear; URINE BACTERIA None Seen /hpf; URINE BILIRUBIN Negative (NEGATIVE); URINE BLOOD Negative (NEGATIVE); URINE COLOR Yellow; URINE GLUCOSE Negative (NEGATIVE); URINE KETONE Negative (NEGATIVE); URINE LEUKOCYTE ESTERASE Negative (NEGATIVE); URINE NITRATE Negative (NEGATIVE); URINE PROTEIN(semi-quant) Negative (NEGATIVE); URINE RBC 0-2 /hpf; URINE UROBILINOGEN >=4.0 mg/dL (NEGATIVE)
[2020-08-27 22:25] VITALS: BP 114/70; PULSE 103; TEMP 97.9
[2020-08-27 23:00] VITALS: BP 147/78; PULSE 89; TEMP 97.4
[2020-08-27 23:54] LABS: CALCIUM 7.6 mg/dL (8.4-10.2); CREATININE, serum 1.09 (0.66-1.25); MAGNESIUM 1.8 mg/dL (1.6-2.3); POTASSIUM 3.3 mmol/L (3.4-5.0)
[2020-08-28] VITALS (7 sets, daily range): BP systolic 88–113; BP diastolic 52–73; PULSE 61–99; TEMP 97.3–99.2
--- NOTE | 2020-08-28 00:48 | NUR ---
Patient arrived to medical unit at approximately 2225. Alert and oriented x 4, and able to make needs known. Reports level 9 pain to abdomen. Given PRN Ultram for pain as requested. Peripheral IV to left forearm with NS running per orders. Site without redness, warmth, swelling, and pain. Denies SOB and dyspnea. LS CTA. Respirations even and unlabored. HRR. Telemetry in place: normal sinus. Capillary refill less than 3 seconds. Non-tenting skin turgor. BSAx4. Abdomen soft and tender. Reports no BM for 6 days. Denies being able to pass gas. Given scheduled Senokot, as well as PRN MOM and Dulocolax suppository. FLANGING ROLL OPERATOR reports small hard pebble as reults so far. No edema. Voices no further questions, needs, or concerns at this time. Resting in bed with call light within reach. High fall risk precautions in place.
--- NOTE | 2020-08-28 02:15 | NUR ---
Patient continues to have level 8-9 pain to abdomen. PRN Ultram was not effective. Called [facility]ORY Br[facility]. New order for one time Dilaudid. Given at this time. Voices no furhter questions, needs, or concerns at this time. Resting in bed with call light within reach.
--- NOTE | 2020-08-28 06:25 | NUR ---
Patient has been resting in bed, awake most of night. Given PRN Ultram this morning for pain. One time dose of Dilaudid did help some according to patient. Patient reported he had a small soft BM this morning. Reminded patiet that staff needs to see results of his BMs. Voiced understanding. Voices no further questions, needs, or concerns at this time. Resting in bed with call light within reach.
[2020-08-28 06:59] LABS: BASO % 0.6 % (0.0-2.0); EOS # 0.2 (0.0-0.7); EOS % 3.2 % (0-4.0); GRAN # 2.9 (1.4-6.5); GRAN % 61.8 % (42.2-75.2); HEMATOCRIT 24.4 % (42.0-52.0); HEMOGLOBIN 8.3 g/dl (13.5-18.0); LYMPH % 21.9 % (20.0-51.0); MEAN CELL VOLUME 88 fl (80.0-100.0); MEAN CORPUSCULAR HEMOGLOBIN 30 pg (27.0-31.0); MEAN CORPUSCULAR HGB CONC 34 g/dl (33.0-37.0); MONO # 0.6 (0.1-0.6); MONO % 12.1 % (1.7-9.3); PLATELET COUNT 78 K/mm3 (130-400); RED BLOOD COUNT 2.76 M/mm3 (4.20-5.60); REDCELL DISTRIBUTION WIDTH-CV 16.2 % (11.5-14.5)
[2020-08-28 07:09] LABS: ALBUMIN 2.4 gm/dL (3.5-5.0); BILIRUBIN,TOTAL 3.1 mg/dL (0.0-1.0); CALCIUM 7.5 mg/dL (8.4-10.2); CREATININE, serum 0.99 (0.66-1.25); POTASSIUM 3.8 mmol/L (3.4-5.0); TOTAL PROTEIN 6.1 gm/dL (6.4-8.2)
--- NOTE | 2020-08-28 07:45 | NUR ---
CRITICAL CHLORIDE RESULT OF 87 CALLED TO [facility] CLEMENS. NO ORDERS GIVEN AT THIS TIME.
--- NOTE | 2020-08-28 07:59 | NUR ---
'S OFFICE CALLED AND MESSAGE LEFT REGARDING GI CONSULT FOR ABDOMINAL PAIN, HX OF GI BLEED & VARACIES.
--- NOTE | 2020-08-28 08:10 | NUR ---
AM SHIFT ASSESSMENT COMPLETED AT THIS TIME. PATIENT REPORTING LOW ABDOMINAL PAIN RATED A 7/10. PATIENT GIVEN ULTRAM BY NIGHT NURSE. PATIENT REPORTS THAT IT IS NOT HELPING MUCH. ABDOMEN IS DISTENDED AND FIRM. BOWEL SOUNDS ACTIVE ALL QUADRANTS. PATIENT DENIES NAUSEA OR PASSING GAS AT THIS TIME. PATIENT SITTING UP EATING BREAKFAST TRAY. CALL LIGHT WITHIN REACH. PATIENT DENIES ANY NEEDS AT THIS TIME.
--- NOTE | 2020-08-28 10:34 | NUR ---
Initial visit; Patient thanked Aids Social Worker for looking in on him, listening and offering prayer and God's blessings. Aids Social Worker will keep Sid in her prayers.
--- NOTE | 2020-08-28 11:30 | NUR ---
MARISSA met with the patient to discuss discharge plan and re-admit. The patient recently discharged from the hospital on 08/01 and returned home with his and [facility]. He had an appointment scheduled with his PCP, Dr. Lloyd, on 08/08. The patient states that he has not seen Dr Lloyd since his last admission. MRAISSA attempted to contact RAKESH Pedromarketing development manager, with Dr. Lloyd to follow up on this. SW left her a voicemail. The patient states that he did have a telehealth appointment with a provider at the [facility], Jason Lord. He states that he took his medications as prescribed and has not drank alcohol in three months. He states that he is no longer receiving home health from [facility], but that he was suppose to have an appointment today from a lady with the [facility] to get home health through them. The patient lives in [place] with his , Marie (ph#[phone]). He reports needing occasional assistance in the bathroom and that his helps him when he does. He has a cane. The patient's PCP is Dr. Harsha Lloyd and he receives his medications from [facility]. He reports no difficulties obtaining his meds. The patient's DPOA-HC is in EMR and it designates his , Marie. The patient plans to return home with his upon discharge. MARISSA attempted to contact the patient's , Marie, to review the above information. SW left her a voicemail. MARISSA contacted Guillermina at the [facility] to follow up about the home health. Guillermina confirms that the patient sees the provider Cristobal Lord there. She was unsure about the home health. MARISSA to follow up with the patient's .
--- NOTE | 2020-08-28 12:56 | NUR ---
PATIENTS IV TO INT. PATIENT EDUCATED ON NO FREE WATER. LUNCH TRAY AT THE BEDSIDE. PATIENT REPORTS THAT HE HAS HAD FOUR BOWEL MOVEMENTS TODAY. HE STATES THAT THE LAST ONE WAS ON THE RUNNY SIDE. PATIENT HAD FLUSHED TOILET, THIS NURSE UNABLE TO OBSERVE. PATIENT STATES THAT HIS ABDOMINAL PAIN IS A BIT BETTER AFTER THIS LAST BOWEL MOVEMENT. CALL LIGHT WITHIN REACH. PATIENT DENIES ANY NEEDS AT THIS TIME.
--- NOTE | 2020-08-28 17:15 | NUR ---
THIS NURSE SPOKE WITH REGARDING PATIENTS SOFT BLOOD PRESSURES THIS AFTERNOON. VORB TO HOLD DIURETICS AND GIVE A 500ML NORMAL SALINE BOLUS, AND ENCOURAGE PATIENT TO PUSH GATORADE.
--- NOTE | 2020-08-28 19:45 | NUR ---
Patient assessed at this time. Alert and oriented x 4, and able to make needs known. Reported level 7 pain to abdomen. Given PRN Ultram as requested for pain. Denies having SOB and dyspnea. LS CTA. Respirations even and unlabored. HRR. Telemetry in place. Capillary refill less than 3 seconds. Non-tenting skin turgor. BSAx4. Abdomen soft, not as distended as last night. Reports he has had many small soft BMs throughout the day, but staff has not been able to see any of the BMs. Reminded patient that staff needs to see BMs. Patient continues on no free water fluid restriction. Voices no questions, needs, or concerns at this time. Resting in bed with call light within reach.
[2020-08-29 00:13] VITALS: BP 85/54; PULSE 76; TEMP 98.3
--- NOTE | 2020-08-29 01:22 | NUR ---
Patient's BPs continue to be soft. Notified CORY Brar. Started 500 ml NS bolus at this time per orders.
[2020-08-29 02:23] VITALS: BP 92/56
--- NOTE | 2020-08-29 02:23 | NUR ---
BP 92/56 after 500 ml fluid bolus. Called and updated CORY Brar.
[2020-08-29 06:00] VITALS: BP 91/62; PULSE 82; TEMP 97.4
--- NOTE | 2020-08-29 06:07 | NUR ---
Patient has been resting in bed. Received PRN Ultram once this shift. BP have been soft throughout this shift, 80s/50s. After bolus, 90s/50s. Voices no questions, needs, or concerns at this time.
[2020-08-29 06:34] LABS: BASO # 0.1 (0.0-0.2); BASO % 1.1 % (0.0-2.0); EOS # 0.3 (0.0-0.7); EOS % 4.6 % (0-4.0); GRAN # 3.4 (1.4-6.5); GRAN % 61.5 % (42.2-75.2); LYMPH # 1.2 (1.2-3.4); LYMPH % 22.6 % (20.0-51.0); MEAN CELL VOLUME 90 fl (80.0-100.0); MEAN CORPUSCULAR HGB CONC 34 g/dl (33.0-37.0); MEAN PLATELET VOLUME 10.5 fl (7.4-10.4); MONO # 0.5 (0.1-0.6); MONO % 9.6 % (1.7-9.3); PLATELET COUNT 90 K/mm3 (130-400); RED BLOOD COUNT 3.16 M/mm3 (4.20-5.60); REDCELL DISTRIBUTION WIDTH-CV 15.9 % (11.5-14.5)
[2020-08-29 06:39] LABS: HEMATOCRIT 28.4 % (42.0-52.0); HEMOGLOBIN 9.5 g/dl (13.5-18.0); MEAN CORPUSCULAR HEMOGLOBIN 30 pg (27.0-31.0)
[2020-08-29 06:43] LABS: ALBUMIN 2.5 gm/dL (3.5-5.0); BILIRUBIN,TOTAL 3.5 mg/dL (0.0-1.0); CALCIUM 8.2 mg/dL (8.4-10.2); CREATININE, serum 0.88 (0.66-1.25); MAGNESIUM 1.7 mg/dL (1.6-2.3); POTASSIUM 3.9 mmol/L (3.4-5.0); TOTAL PROTEIN 6.4 gm/dL (6.4-8.2)
[2020-08-29] MEDS ORDERED: INDERAL 20MG20 MG PO (09:21)
[2020-08-29] MEDS ORDERED: MIRALAX119G PO (09:22)
[2020-08-29] MEDS ORDERED: MAG-OX 400400 MG/TAB PO (09:30)
[2020-08-29 09:31] VITALS: BP 96/60; PULSE 81; TEMP 98
--- NOTE | 2020-08-29 09:42 | NUR ---
RAKESH Pedrocertified breastfeeding educator, with the patient's PCP returned SW's phone call. She reports that the patient did attend his appointment with Dr. Lloyd on 08/08 via telehealth.
--- NOTE | 2020-08-29 09:45 | NUR ---
PATIENT SHIFT ASSESSMENT COMPLETE AND MEDICATIONS ADMINISTERED. PATIENT HAD SOME ABDOMINAL TENDERNESS WHEN PALPATED. ABDOMEN IS DISTENDED BUT SOFT. PATIENTS PAIN HAS IMPROVED SINCE YESTERDAY AFTER HAVING MULTIPLE BOWEL MOVEMENTS YESTERDAY AND OVERNIGHT. CALL LIGHT WITHIN REACH. PATIENT DENIES ANY NEEDS AT THIS TIME.
--- NOTE | 2020-08-29 10:39 | NUR ---
Follow-up visit; Patient spoke with Testing Director about spiritual matters; a specific moravian and Bible reading. Testing Director hopefully offered some helpful suggestions when asked. Testing Director offered God's blessings.
[2020-08-29 11:25] VITALS: BP 92/59; PULSE 76; TEMP 97.4
--- NOTE | 2020-08-29 13:05 | NUR ---
PATIENT INT DISCONTINUED PER PENDING DISCHARGE. TIP INTACT. PATIENT TOLERATED WELL. DISCHARGE INSTRUCTIONS REVIEWED WITH PATIENT. QUESTIONS SOUGHT AND ANSWERED. PATIENT PERSONAL BELONGINGS GATHERED. PATIENT TAKEN TO PERSONAL VEHICLE VIA WHEELCHAIR. PATIENT DISCHARGED.
--- NOTE | 2020-08-29 13:46 | NUR ---
The patient discharged back home with his today, 08/29. No additional needs at this time.
== END 2020-08-29 13:05 | disposition home or self-care (01) ==
LOC: COL.ER 17:41 → SURG 20:34
PROVIDERS: Family Medicine; Internal Medicine; Student in an Organized Health Care Education/Training Program; ADMIT Hospitalist
DX: I95.9 Hypotension, unspecified (principal); D64.9 Anemia, unspecified; R00.0 Tachycardia, unspecified; K59.00 Constipation, unspecified; E87.1 Hypo-osmolality and hyponatremia; E87.6 Hypokalemia; E83.42 Hypomagnesemia; K76.0 Fatty (change of) liver, not elsewhere classified; K21.9 Gastro-esophageal reflux disease without esophagitis; I07.1 Rheumatic tricuspid insufficiency; F32.9 Major depressive disorder, single episode, unspecified; F41.9 Anxiety disorder, unspecified; K85.90 Acute pancreatitis without necrosis or infection, unspecified; H81.09 Meniere's disease, unspecified ear; F10.21 Alcohol dependence, in remission; Z91.048 Other nonmedicinal substance allergy status
CPT/HCPCS: 99223-AI; J1170; J3475; J7030; J7040

== ENCOUNTER → 2020-08-30 | Outpatient (CLI) | payer MEDICARE, OTHER ==
[~2020-08-30] VITALS: Ht 170.2 cm; Wt 62.4 kg
[~2020-08-30] MED LIST changes: +MIRALAX119G PO
[2020-08-30 12:30] VITALS: BP 82/57; PULSE 94
[2020-08-30 13:34] VITALS: BP 104/73; PULSE 95
== END ==
LOC: COL.RAD 08-29 11:45
DX: K70.11 Alcoholic hepatitis with ascites (principal); K86.0 Alcohol-induced chronic pancreatitis

== ENCOUNTER → 2020-09-12 | Outpatient (CLI) | payer MEDICARE, OTHER ==
[~2020-09-12] VITALS: Ht 170.2 cm; Wt 60.1 kg
[~2020-09-12] MED LIST changes: +ATROPINE 2 ML2 ML SL; +ROXANOL 20MG20 MG/ML SL; +RT ALBUTER2.5 MG/0.5 IH; +SYSTANE 0.3-0.1 EACH OP; +TRANSDERM-0.5 MG/21 TD; +ZOFRAN ODT4 MG PO
[2020-09-12 12:30] VITALS: BP 92/66; PULSE 92
[2020-09-12 13:30] VITALS: BP 111/72; PULSE 94
== END ==
LOC: COL.RAD 11:45
DX: K86.0 Alcohol-induced chronic pancreatitis (principal); K70.11 Alcoholic hepatitis with ascites
CPT/HCPCS: 19804

== ENCOUNTER 2020-09-21 10:36 | Day surgery (SDC) | payer MEDICARE, OTHER ==
[~2020-09-21] VITALS: Ht 172.7 cm; Wt 51.5 kg
[~2020-09-21 10:36] MED LIST changes: -ATROPINE 2 ML2 ML SL; -ROXANOL 20MG20 MG/ML SL; -RT ALBUTER2.5 MG/0.5 IH; -SYSTANE 0.3-0.1 EACH OP; -TRANSDERM-0.5 MG/21 TD; -ZOFRAN ODT4 MG PO
[2020-09-21 11:22] VITALS: BP 88/64; PULSE 102; TEMP 97.2
[2020-09-21 12:50] VITALS: BP 83/60; PULSE 100; TEMP 97.4
--- NOTE | 2020-09-21 12:50 | NUR ---
Pt to GI bay 1 via cart from ENDO. Pt drowsy, but awake. Denies pain or nausea. Pt ambulates to recliner with stand by assistance. Warm blankets provided. Apple juice given per pt request. Will continue to monitor. Call light within reach.
[2020-09-21 13:05] VITALS: BP 99/70; PULSE 97
--- NOTE | 2020-09-21 13:05 | NUR ---
Pt continues to rest. Denies needs. Call light within reach.
[2020-09-21 13:20] VITALS: BP 101/69; PULSE 91
--- NOTE | 2020-09-21 13:20 | NUR ---
Pt continues to rest. Denies needs. Call light within reach.
[2020-09-21 13:35] VITALS: BP 102/71; PULSE 92
--- NOTE | 2020-09-21 13:35 | NUR ---
Discharge instructions reviewed. Pt voices understanding. IV site discontinued with all parts intact. Pt up to dress with nurse assist. Call light within reach.
--- NOTE | 2020-09-21 13:50 | NUR ---
Pt escorted to private car via wheel chair. Pt accompanied home by his .
== END 2020-09-21 13:50 | disposition home or self-care (01) ==
LOC: SDCO 10:36
DX: I85.01 Esophageal varices with bleeding (principal); K70.31 Alcoholic cirrhosis of liver with ascites; K86.0 Alcohol-induced chronic pancreatitis; K31.89 Other diseases of stomach and duodenum; K21.9 Gastro-esophageal reflux disease without esophagitis; I10 Essential (primary) hypertension; G89.29 Other chronic pain; D64.9 Anemia, unspecified; E78.5 Hyperlipidemia, unspecified; K92.2 Gastrointestinal hemorrhage, unspecified; F41.9 Anxiety disorder, unspecified; F32.9 Major depressive disorder, single episode, unspecified; K70.11 Alcoholic hepatitis with ascites; Z79.899 Other long term (current) drug therapy; Z91.048 Other nonmedicinal substance allergy status; Z20.822 Contact with and (suspected) exposure to COVID-19; Z88.8 Allergy status to other drugs, medicaments and biological substances; Z79.891 Long term (current) use of opiate analgesic; Z87.891 Personal history of nicotine dependence
CPT/HCPCS: J2250; J2704; J7030

== ENCOUNTER 2020-09-24 10:38 | Inpatient (IN) | payer MEDICARE, OTHER ==
[~2020-09-24] VITALS: Ht 172.7 cm; Wt 51.2 kg
[2020-09-24 11:04] LABS: BASO % 0.1 % (0.0-2.0); EOS % 0.1 % (0-4.0); GRAN # 11.9 (1.4-6.5); GRAN % 83.6 % (42.2-75.2); LYMPH # 1.1 (1.2-3.4); LYMPH % 7.5 % (20.0-51.0); MEAN CELL VOLUME 84 fl (80.0-100.0); MEAN CORPUSCULAR HEMOGLOBIN 29 pg (27.0-31.0); MEAN CORPUSCULAR HGB CONC 35 g/dl (33.0-37.0); MEAN PLATELET VOLUME 10.4 fl (7.4-10.4); MONO # 1.2 (0.1-0.6); MONO % 8.2 % (1.7-9.3); PLATELET COUNT 133 K/mm3 (130-400); REDCELL DISTRIBUTION WIDTH-CV 17.2 % (11.5-14.5)
[2020-09-24 11:05] LABS: HEMATOCRIT 34.6 % (42.0-52.0)
[2020-09-24 11:10] LABS: INR 2.3 (0.8-3.0); PROTHROMBIN TIME 25.5 SECONDS (9.7-12.8)
[2020-09-24 11:15] LABS: ALANINE AMINOTRANSFERASE 160 U/L (4-49); ALBUMIN 2.3 gm/dL (3.5-5.0); ALKALINE PHOSPHATASE 463 U/L (50-136); ANION GAP 12 mmol/L (7-16); BILIRUBIN,TOTAL 5.2 mg/dL (0.0-1.0); BLOOD UREA NITROGEN 57 mg/dL (9-20); CALCIUM 7.3 mg/dL (8.4-10.2); CARBON DIOXIDE 19 mmol/L (22-30); CREATININE, serum 3.11 (0.66-1.25); GLUCOSE 130 mg/dL (74-106); LIPASE 790 U/L (23-300); POTASSIUM 5.5 mmol/L (3.4-5.0); TOTAL PROTEIN 6.1 gm/dL (6.4-8.2)
[2020-09-24 11:16] LABS: LACTIC ACID 3.5 mmol/L (0.4-2.0)
[2020-09-24 11:20] LABS: AST,SGOT 923 U/L (15-37)
[2020-09-24 11:22] LABS: ALCOHOL(ethanol),MEDICAL < 10 mg/dL; CHLORIDE 85 mmol/L (98-107); SODIUM 116 mmol/L (137-145)
[2020-09-24 11:40] LABS: COLLECTION METHOD CLEAN CATCH
[2020-09-24 12:07] LABS: AMORPHOUS CRYSTAL Present /uL; PH 5 (5-8); SQUAMOUS EPITHELIAL None Seen /hpf; URINE APPEARANCE Cloudy; URINE BACTERIA Rare /hpf; URINE BILIRUBIN Negative (NEGATIVE); URINE BLOOD 1+ (NEGATIVE); URINE COLOR Amber; URINE GLUCOSE Negative (NEGATIVE); URINE KETONE Negative (NEGATIVE); URINE LEUKOCYTE ESTERASE Negative (NEGATIVE); URINE NITRATE Negative (NEGATIVE); URINE PROTEIN(semi-quant) 2+ (NEGATIVE); URINE RBC 0-2 /hpf; URINE UROBILINOGEN Negative (NEGATIVE); URINE WBC 0-2 /hpf
[2020-09-24 13:22] LABS: CREATININE, serum 2.87 (0.66-1.25); POTASSIUM 5.7 mmol/L (3.4-5.0)
--- NOTE | 2020-09-24 13:29 | NUR ---
CRITICAL SODIUM OF 117 AND CRITICAL CHLORIDE OF 87 CALLED TO CORY ADAME.
--- NOTE | 2020-09-24 13:42 | NUR ---
PATIENT ARRIVED TO ROOM 355 FROM ED. PATIENT SETTELED INTO ROOM.
[2020-09-24 16:50] VITALS: BP 93/57; PULSE 109; TEMP 97.7
--- NOTE | 2020-09-24 19:00 | NUR ---
PATIENT RESTING IN BED. PATIENT TOLERATING CLEAR LIQUIDS WITHOUT DIFFICULTIES. CALL LIGHT IN REACH. REPORT GIVEN TO NIGHT NURSE.
[2020-09-24 19:30] LABS: CALCIUM 6.6 mg/dL (8.4-10.2); CREATININE, serum 2.93 (0.66-1.25); POTASSIUM 5.3 mmol/L (3.4-5.0)
--- NOTE | 2020-09-24 20:00 | NUR ---
Assessment complete. Patient is resting in bed; He is drowsy and weak. He complains of pain 8/10 in abdomen; PRN morphine administered. No edema is present. Fluids infusing into left a/c IV. Patient is oriented but forgettful at times. Call light in reach, bed alarm set.
[2020-09-24 20:39] VITALS: BP 102/71; PULSE 104; TEMP 98
[2020-09-24 23:42] VITALS: BP 100/63; PULSE 109; TEMP 97.4
[2020-09-25 01:29] LABS: CALCIUM 6.7 mg/dL (8.4-10.2); CREATININE, serum 2.69 (0.66-1.25); POTASSIUM 5.2 mmol/L (3.4-5.0)
[2020-09-25 03:58] VITALS: BP 115/67; PULSE 112; TEMP 98
[2020-09-25 06:44] LABS: BASO % 0.2 % (0.0-2.0); EOS # 0.1 (0.0-0.7); EOS % 0.4 % (0-4.0); GRAN # 10.3 (1.4-6.5); GRAN % 78.5 % (42.2-75.2); HEMOGLOBIN 12.4 g/dl (13.5-18.0); LYMPH # 1.3 (1.2-3.4); LYMPH % 10.2 % (20.0-51.0); MEAN CELL VOLUME 84 fl (80.0-100.0); MEAN CORPUSCULAR HEMOGLOBIN 29 pg (27.0-31.0); MEAN CORPUSCULAR HGB CONC 35 g/dl (33.0-37.0); MONO # 1.3 (0.1-0.6); MONO % 10.1 % (1.7-9.3); PLATELET COUNT 129 K/mm3 (130-400); RED BLOOD COUNT 4.23 M/mm3 (4.20-5.60); REDCELL DISTRIBUTION WIDTH-CV 17.4 % (11.5-14.5)
[2020-09-25 06:45] LABS: HEMATOCRIT 35.5 % (42.0-52.0)
[2020-09-25 06:55] LABS: ALANINE AMINOTRANSFERASE 93 U/L (4-49); ALBUMIN 2.1 gm/dL (3.5-5.0); ALKALINE PHOSPHATASE 389 U/L (50-136); ANION GAP 10 mmol/L (7-16); AST,SGOT > 750 U/L (15-37); BLOOD UREA NITROGEN 58 mg/dL (9-20); CALCIUM 6.7 mg/dL (8.4-10.2); CARBON DIOXIDE 17 mmol/L (22-30); CHLORIDE 90 mmol/L (98-107); CREATININE, serum 2.76 (0.66-1.25); GLUCOSE 81 mg/dL (74-106); LIPASE 707 U/L (23-300); MAGNESIUM 2.3 mg/dL (1.6-2.3); POTASSIUM 5.2 mmol/L (3.4-5.0); TOTAL PROTEIN 5.7 gm/dL (6.4-8.2)
[2020-09-25 06:57] LABS: SODIUM 117 mmol/L (137-145)
[2020-09-25 06:58] LABS: INR 2.3 (0.8-3.0)
[2020-09-25 08:40] VITALS: BP 110/75; PULSE 113; TEMP 97.9
--- NOTE | 2020-09-25 09:30 | NUR ---
Patient resting in bed at this time. Patient rouses easily, is alert and oriented while awake, answers questions appropriately. Patient c/o abdominal pain and requests PRN pain medication, administered per order. Discussed free water restriction due to hyponitremia, patient verbalized understanding. Patient assisted to reposition, denies further needs, call light within reach.
--- NOTE | 2020-09-25 12:00 | NUR ---
First visit from the manufacturing automation engineer. No needs right now.
[2020-09-25 12:32] VITALS: BP 108/78; PULSE 123; TEMP 98.4
[2020-09-25 14:55] LABS: POTASSIUM 4.3 mmol/L (3.4-5.0)
[2020-09-25 15:09] LABS: CALCIUM 6.7 mg/dL (8.4-10.2); CREATININE, serum 2.68 (0.66-1.25)
--- NOTE | 2020-09-25 15:27 | NUR ---
Wallcovering Texturer met with patient to discuss discharge planning. Patient lives in [place] with his , Marie (ph#[phone]). Patient sees Dr. Lloyd for primary care as well as a provider at the [facility]. [facility] from [facility] the [facility] or [facility]. Patient has a cane and CPAP at home. Patient reports he was fairly independent with ADLS until recently. Patient states his assists him with ADLS as needed. PT has been ordered for patient. Patient has Advance Directives in EMR which designate his , Marie. Patient plans to return home upon discharge. SW contacted patient's , Marie who advised patient receives home health services through the [facility]. SW will continue to follow as needed.
--- NOTE | 2020-09-25 15:36 | NUR ---
Grocery Deliverer left a message for [place] Grocery Deliverer, Janice Ravi.
[2020-09-25 15:54] VITALS: BP 117/81; PULSE 118; TEMP 98.4
--- NOTE | 2020-09-25 18:19 | NUR ---
Patient resting in bed at this time, remains alert and oriented while awake. Patient remains weak, but was able to transfer from commode to bed independently. Patient continues to c/o abdominal pain, does request PRN antiemetic, no emesis during this shift. Patient denies further needs, call light within reach.
[2020-09-25 19:58] VITALS: BP 97/62; PULSE 122; TEMP 97.4
[2020-09-25 19:58] LABS: CALCIUM 6.6 mg/dL (8.4-10.2); CREATININE, serum 2.72 (0.66-1.25)
--- NOTE | 2020-09-25 20:30 | NUR ---
CORY MARROQUIN NOTIFIED OF PATIENTS CRITICAL LABS (SODIUM AND CHLORIDE).
[2020-09-26 00:41] VITALS: BP 90/71; PULSE 127; TEMP 97.5
[2020-09-26 01:33] LABS: CALCIUM 6.7 mg/dL (8.4-10.2); CREATININE, serum 2.6 (0.66-1.25); POTASSIUM 3.7 mmol/L (3.4-5.0)
--- NOTE | 2020-09-26 01:59 | NUR ---
CORY MARROQUIN NOTIFIED OF PATIENTS CRITICAL LABS. SODIUM AND CARBON DIOXIDE LEVEL. WILL ACKNOWLEDGE NEW ORDERS.
[2020-09-26 03:54] VITALS: BP 94/70; PULSE 122; TEMP 97.4
[2020-09-26 07:34] LABS: BASO % 0.1 % (0.0-2.0); EOS % 0.2 % (0-4.0); GRAN # 11.7 (1.4-6.5); GRAN % 83.4 % (42.2-75.2); HEMATOCRIT 38.3 % (42.0-52.0); HEMOGLOBIN 13.5 g/dl (13.5-18.0); LYMPH # 1.1 (1.2-3.4); LYMPH % 7.6 % (20.0-51.0); MEAN CELL VOLUME 83 fl (80.0-100.0); MEAN CORPUSCULAR HEMOGLOBIN 29 pg (27.0-31.0); MEAN CORPUSCULAR HGB CONC 35 g/dl (33.0-37.0); MEAN PLATELET VOLUME 11.5 fl (7.4-10.4); MONO # 1.1 (0.1-0.6); PLATELET COUNT 98 K/mm3 (130-400); RED BLOOD COUNT 4.61 M/mm3 (4.20-5.60); REDCELL DISTRIBUTION WIDTH-CV 17.6 % (11.5-14.5)
[2020-09-26 07:41] LABS: BILIRUBIN,TOTAL 5.9 mg/dL (0.0-1.0); CALCIUM 6.8 mg/dL (8.4-10.2); CREATININE, serum 2.84 (0.66-1.25); MAGNESIUM 2.2 mg/dL (1.6-2.3); POTASSIUM 3.6 mmol/L (3.4-5.0); TOTAL PROTEIN 5.4 gm/dL (6.4-8.2)
[2020-09-26 07:54] VITALS: BP 98/71; PULSE 102; TEMP 98.6
[2020-09-26 11:53] VITALS: BP 103/74; PULSE 122; TEMP 97.8
[2020-09-26 13:19] LABS: CREATININE, serum 2.67 (0.66-1.25); POTASSIUM 3.4 mmol/L (3.4-5.0)
[2020-09-26 16:05] VITALS: BP 91/66; PULSE 125; TEMP 98.1
--- NOTE | 2020-09-26 16:23 | NUR ---
Cross Tie Maker collaborated with Belkis Miramontes who advised patient may have a Dobhoff NG tube placed for discharge. MARISSA contacted the [facility] as MARISSA has not heard back from MARISSA Camacho. MARISSA was informed patient is a part of the home based primary care program and sees Juana RUBIO. MARISSA spoke with Juana to provide update. Juana advised [facility] but that patient's would need teachings on administering feedings. Juana advised orders can be faxed to [phone] and Attn: Juana.
--- NOTE | 2020-09-26 18:00 | NUR ---
Patient has been doing ok today. Pain controlled with roxicodone. No complaints of nausea. He was doing better with his intake today. Sodium is still not stable, 3% saline ordered and infusing at ordered rate. Patient had family at bedside this afternoon. Needs encouragement to increase activity, refused to sit in the chair today. Was supposed to have paracentesis this afternoon but it was canceled. No other changes at this time. Call light within reach.
[2020-09-26 19:59] VITALS: BP 109/67; PULSE 124; TEMP 97.9
[2020-09-26 19:59] LABS: CREATININE, serum 2.58 (0.66-1.25); POTASSIUM 3.4 mmol/L (3.4-5.0)
[2020-09-27] VITALS (71 sets, daily range): BP systolic 78–103; BP diastolic 50–74; PULSE 113–131; TEMP 97.3–98; O2SAT 89–100
[2020-09-27 01:40] LABS: CALCIUM 7.2 mg/dL (8.4-10.2); CREATININE, serum 2.47 (0.66-1.25)
[2020-09-27 06:44] LABS: CALCIUM 7.4 mg/dL (8.4-10.2); CREATININE, serum 2.6 (0.66-1.25); POTASSIUM 3.3 mmol/L (3.4-5.0)
--- NOTE | 2020-09-27 08:05 | NUR ---
Shift assessment complete. Pt lying in bed upon entry. Reports abdominal pain and N/V. Pain unrelieved by IV morphine. Roxicodone and zofran administered per orders. A&Ox4. Heart RRR. Lungs CTA. Abdomen distended, firm and tender to touch. 3% NS and Zosyn running to left AC IV. Denies other needs at this time. Call light in reach.
[2020-09-27 10:16] LABS: INR 2.7 (0.8-3.0); PROTHROMBIN TIME 30.9 SECONDS (9.7-12.8)
[2020-09-27 10:26] LABS: BILIRUBIN,TOTAL 5.1 mg/dL (0.0-1.0)
[2020-09-27 13:44] LABS: CALCIUM 7.1 mg/dL (8.4-10.2); CREATININE, serum 2.48 (0.66-1.25)
[2020-09-27 13:48] LABS: POTASSIUM 2.9 mmol/L (3.4-5.0)
--- NOTE | 2020-09-27 14:32 | NUR ---
Consumer Affairs Director collaborated with Julisa Miramontes about possibility for Dobhoff NG tube. Per notes, patient is still undecided at this time. MARISSA contacted RAKESH Camacho at the [facility] to provide update. Janice advised that supplies could be ordered through the [facility] but that they cannot do anything over the weekend. Janice advised it can sometimes take a day or two to order supplies. Janice also advised that if patient goes home with a NG tube, he may need senior care home health through an outside agency as patient's current services only include nursing intermittently.
[2020-09-27 18:12] LABS: HEMATOCRIT 25.8 % (42.0-52.0); HEMOGLOBIN 8.9 g/dl (13.5-18.0)
[2020-09-27 19:28] LABS: CALCIUM 7.2 mg/dL (8.4-10.2); CREATININE, serum 2.44 (0.66-1.25)
--- NOTE | 2020-09-27 20:00 | NUR ---
Assessment complete. Notified by STAMP MAKER of pt vital signs. Upon entering the room the pt is AXO X3 and states he continues to have ABD pain. ABD is distended, firm, and tender to palpation. Called JOANNE Salinas, at 2003 to notify her of the pt's VS and status update. Call light within reach.
[2020-09-27 20:30] LABS: BASO % 0.1 % (0.0-2.0); EOS # 0.1 (0.0-0.7); EOS % 0.7 % (0-4.0); GRAN # 8.6 (1.4-6.5); GRAN % 76.4 % (42.2-75.2); LYMPH # 1.3 (1.2-3.4); LYMPH % 11.9 % (20.0-51.0); MEAN CELL VOLUME 85 fl (80.0-100.0); MEAN CORPUSCULAR HGB CONC 35 g/dl (33.0-37.0); MEAN PLATELET VOLUME 12.3 fl (7.4-10.4); MONO # 1.2 (0.1-0.6); MONO % 10.4 % (1.7-9.3); PLATELET COUNT 67 K/mm3 (130-400); RED BLOOD COUNT 2.99 M/mm3 (4.20-5.60); REDCELL DISTRIBUTION WIDTH-CV 17.4 % (11.5-14.5)
[2020-09-27 20:45] LABS: HEMATOCRIT 25.3 % (42.0-52.0); HEMOGLOBIN 8.8 g/dl (13.5-18.0); MEAN CORPUSCULAR HEMOGLOBIN 29 pg (27.0-31.0)
[2020-09-27 20:48] LABS: INR 3.7 (0.8-3.0); PROTHROMBIN TIME 41.5 SECONDS (9.7-12.8)
--- NOTE | 2020-09-27 21:30 | NUR ---
Received report from RAKESH Peña.
--- NOTE | 2020-09-27 21:48 | NUR ---
Patient arrives to ICU room 4 via medical bed. Patient is transferred to ICU bed via turn sheet. Patient is alert and oriented upon arrival. Initial BP is 80/62, HR 120. Patient arrives on room air, breathing is unlabored and oxygen saturation is 92%. Other vitals within normal limits. Patient reports constant abdominal pain, rated 7/10 at this time, that is reportedly worse with movement. Octreotide is infusing to a peripheral IV in the left upper arm at 50 mcg/hr or 50mL/hr. NS is also running to the left upper arm at 75 mL/hr. A second peripheral IV is in the right forearm; it is saline locked at arrival. Rita hospitalist, is at the bedside.
--- NOTE | 2020-09-27 22:56 | NUR ---
Patient leaves for OR with anesthesia at this time.
[2020-09-28] VITALS (692 sets, daily range): BP systolic 90–129; BP diastolic 55–89; PULSE 113–132; TEMP 97.3–98.3; O2SAT 89–99
--- NOTE | 2020-09-28 00:09 | NUR ---
Patient returns from OR at this time. Receiving oxygen at 5L via oxymask, O2 saturation 97%. Patient is drowsy, although arouses to speech. A triple lumen central line was placed in the left groin while in OR by Dr. Ware. Patient returns to ICU with levophed infusing at 0.1 mcg/kg/min or 25.2 mL/hr; octreotide infusing at 50 mcg/hr or 50mL/hr; NS at 75 mL/hr; and a unit of blood initiated in ICU at 2250 prior to leaving for OR is infusing at 60 mL/hr. These drips and rates are unchanged from when patient left the unit at 2256. PACU nurse recovers patient at bedside. Rita, hospitalist, at bedside with patient's arrival. Rita updated , Marie, on patient's status.
[2020-09-28 02:33] LABS: HEMOGLOBIN 10.3 g/dl (13.5-18.0)
[2020-09-28 02:35] LABS: HEMATOCRIT 28.5 % (42.0-52.0)
[2020-09-28 05:37] LABS: BASO % 0.1 % (0.0-2.0); EOS # 0.1 (0.0-0.7); EOS % 0.5 % (0-4.0); GRAN % 80.4 % (42.2-75.2); LYMPH # 1.5 (1.2-3.4); LYMPH % 11.9 % (20.0-51.0); MEAN CELL VOLUME 82 fl (80.0-100.0); MEAN CORPUSCULAR HGB CONC 36 g/dl (33.0-37.0); MEAN PLATELET VOLUME 11.1 fl (7.4-10.4); MONO # 0.8 (0.1-0.6); MONO % 6.8 % (1.7-9.3); PLATELET COUNT 60 K/mm3 (130-400); RED BLOOD COUNT 3.16 M/mm3 (4.20-5.60); REDCELL DISTRIBUTION WIDTH-CV 15.9 % (11.5-14.5)
[2020-09-28 05:38] LABS: HEMOGLOBIN 9.4 g/dl (13.5-18.0); MEAN CORPUSCULAR HEMOGLOBIN 30 pg (27.0-31.0)
[2020-09-28 05:44] LABS: PROTHROMBIN TIME 22.2 SECONDS (9.7-12.8)
[2020-09-28 05:46] LABS: CALCIUM 7.7 mg/dL (8.4-10.2); CREATININE, serum 2.28 (0.66-1.25)
--- NOTE | 2020-09-28 07:15 | NUR ---
Report given to RAKESH Lisa.
--- NOTE | 2020-09-28 07:15 | NUR ---
Patient sleeping but awakens easily. Denies any concerns at this time other than wanting water. Patient is currenlty NPO but provided mouth swabs for comfort. Call light left within reach; will continue to monitor.
--- NOTE | 2020-09-28 08:00 | NUR ---
Updated on patient status via telephone. All questions and concerns addressed at this time.
--- NOTE | 2020-09-28 09:00 | NUR ---
Notified Dr. Angel that patient has bruising around abdomen and flank. No new orders at this time.
--- NOTE | 2020-09-28 13:03 | NUR ---
Call placed to Madelaine Castillo at [facility] ext. [phone] for possible transfer to [place]. Per Madelaine the [facility] does not have the service in [facility] or [facility] that this patient requires. She recommended that the primary continue to look further at other facilitiies as patient does have Medicare as primary. Dr. Angel made aware.
--- NOTE | 2020-09-28 13:24 | NUR ---
First visit from the surgical sales representative. Receivables Specialist prayed with patient and . No other needs right now.
--- NOTE | 2020-09-28 13:30 | NUR ---
Patient resting in bed; at bedside. All questions and concerns addressed at this time. Patient reporing abdominal pain which he states is chronic in nature. PRN oxycodone administered. Will continue to monitor.
--- NOTE | 2020-09-28 14:04 | NUR ---
baking factory worker met with Dr Angel to assist with patient's possible transfer to the [place] [facility]. Worker contacted patient's spouse and [facility] social worker delinquency prevention, Antonia, to obtain VA tranfer line information. House Superviser spoke with [facility] and patient was declined admission at this time.
--- NOTE | 2020-09-28 17:27 | NUR ---
Dr. Angel at bedside discussing plan of care with patient and family. Notified of large loose maroon stool. No new orders at this time.
--- NOTE | 2020-09-28 18:11 | NUR ---
Ok to use regular GFR potassium replacement order for patient.
--- NOTE | 2020-09-28 19:40 | NUR ---
RECEIVED REPORT FROM SHAW CAMERON WITH BASIM RN. PATIENT RESTING IN BED WITH EYES OPEN. SEE DRIP TITRATION FLOWSHEET. CALL LIGHT WITHIN REACH. VSS.
[2020-09-29] VITALS (556 sets, daily range): BP systolic 99–129; BP diastolic 57–93; PULSE 95–117; TEMP 97.1–98.7; O2SAT 78–100
[2020-09-29 05:53] LABS: INR 2.1 (0.8-3.0); PROTHROMBIN TIME 23.8 SECONDS (9.7-12.8)
[2020-09-29 05:54] LABS: ALBUMIN 2.2 gm/dL (3.5-5.0); CALCIUM 8.1 mg/dL (8.4-10.2); CREATININE, serum 2.03 (0.66-1.25); POTASSIUM 3.9 mmol/L (3.4-5.0); TOTAL PROTEIN 4.5 gm/dL (6.4-8.2)
[2020-09-29 06:25] LABS: EOS # 0.1 (0.0-0.7); EOS % 1.4 % (0-4.0); GRAN # 3.2 (1.4-6.5); GRAN % 72.6 % (42.2-75.2); LYMPH # 0.6 (1.2-3.4); LYMPH % 13.9 % (20.0-51.0); MEAN CELL VOLUME 84 fl (80.0-100.0); MEAN CORPUSCULAR HGB CONC 36 g/dl (33.0-37.0); MEAN PLATELET VOLUME 11.9 fl (7.4-10.4); MONO # 0.5 (0.1-0.6); MONO % 11.6 % (1.7-9.3); RED BLOOD COUNT 1.83 M/mm3 (4.20-5.60); REDCELL DISTRIBUTION WIDTH-CV 16.6 % (11.5-14.5)
[2020-09-29 06:37] LABS: HEMATOCRIT 15.4 % (42.0-52.0); HEMOGLOBIN 5.5 g/dl (13.5-18.0); MEAN CORPUSCULAR HEMOGLOBIN 30 pg (27.0-31.0); PLATELET COUNT 19 K/mm3 (130-400)
[2020-09-29 07:04] LABS: EOS # 0.1 (0.0-0.7); EOS % 1.3 % (0-4.0); GRAN # 3.2 (1.4-6.5); GRAN % 72.1 % (42.2-75.2); LYMPH # 0.7 (1.2-3.4); LYMPH % 15.4 % (20.0-51.0); MEAN CELL VOLUME 83 fl (80.0-100.0); MEAN CORPUSCULAR HGB CONC 36 g/dl (33.0-37.0); MEAN PLATELET VOLUME 9.6 fl (7.4-10.4); MONO # 0.5 (0.1-0.6); MONO % 10.5 % (1.7-9.3); RED BLOOD COUNT 2.05 M/mm3 (4.20-5.60); REDCELL DISTRIBUTION WIDTH-CV 16.3 % (11.5-14.5)
[2020-09-29 07:11] LABS: HEMATOCRIT 17.1 % (42.0-52.0); HEMOGLOBIN 6.1 g/dl (13.5-18.0); MEAN CORPUSCULAR HEMOGLOBIN 30 pg (27.0-31.0); PLATELET COUNT 19 K/mm3 (130-400)
--- NOTE | 2020-09-29 07:45 | NUR ---
GOT A REPEAT STAT HGB PER DR. ANDRADE. HGB RESULTS STILL CRITICAL.
[2020-09-29 18:46] LABS: HEMATOCRIT 22.2 % (42.0-52.0); HEMOGLOBIN 7.8 g/dl (13.5-18.0)
--- NOTE | 2020-09-29 19:30 | NUR ---
RECEIVED REPORT FROM RAKESH MARROQUIN. PATIENT RESTING IN BED WITH EYES OPEN. VSS. FEMORAL LINE IN PLACE IN LEFT LEG. CALL LIGHT WITHIN REACH. OSTREOCIDE AND FLUIDS INFUSING.
[2020-09-30] VITALS (530 sets, daily range): BP systolic 109–141; BP diastolic 77–99; PULSE 109–119; TEMP 97.6–98.4; O2SAT 73–100
[2020-09-30 05:25] LABS: BASO % 0.2 % (0.0-2.0); EOS # 0.1 (0.0-0.7); GRAN # 4.7 (1.4-6.5); GRAN % 76.6 % (42.2-75.2); LYMPH # 0.7 (1.2-3.4); LYMPH % 11.2 % (20.0-51.0); MEAN CELL VOLUME 84 fl (80.0-100.0); MEAN CORPUSCULAR HGB CONC 35 g/dl (33.0-37.0); MEAN PLATELET VOLUME 9.6 fl (7.4-10.4); MONO # 0.6 (0.1-0.6); MONO % 10.5 % (1.7-9.3); RED BLOOD COUNT 2.78 M/mm3 (4.20-5.60); REDCELL DISTRIBUTION WIDTH-CV 15.9 % (11.5-14.5)
[2020-09-30 05:26] LABS: HEMATOCRIT 23.3 % (42.0-52.0); HEMOGLOBIN 8.2 g/dl (13.5-18.0); MEAN CORPUSCULAR HEMOGLOBIN 29 pg (27.0-31.0)
[2020-09-30 05:27] LABS: PLATELET COUNT 36 K/mm3 (130-400)
[2020-09-30 05:31] LABS: INR 1.9 (0.8-3.0); PROTHROMBIN TIME 21.1 SECONDS (9.7-12.8)
[2020-09-30 05:37] LABS: ALBUMIN 2.4 gm/dL (3.5-5.0); BILIRUBIN,TOTAL 10.7 mg/dL (0.0-1.0); CALCIUM 8.4 mg/dL (8.4-10.2); CREATININE, serum 1.57 (0.66-1.25); MAGNESIUM 1.8 mg/dL (1.6-2.3); POTASSIUM 3.4 mmol/L (3.4-5.0); TOTAL PROTEIN 5.1 gm/dL (6.4-8.2)
--- NOTE | 2020-09-30 18:15 | NUR ---
PATIENT TRANSFERRED TO ROOM 314 VIA HOSPITAL BED. HE IS ALERT AND TALKATIVE. ICE WATER PROVIDED PER HIS REQUEST WELL A GLASS OF ICE. HE DENIES OTHER NEEDS AT THIS TIME.
[2020-10-01 03:58] VITALS: BP 116/80; PULSE 107; TEMP 97.8
[2020-10-01 06:20] LABS: EOS # 0.1 (0.0-0.7); EOS % 0.8 % (0-4.0); GRAN # 6.1 (1.4-6.5); GRAN % 76.2 % (42.2-75.2); LYMPH # 0.9 (1.2-3.4); LYMPH % 11.1 % (20.0-51.0); MEAN CELL VOLUME 86 fl (80.0-100.0); MEAN CORPUSCULAR HGB CONC 35 g/dl (33.0-37.0); MEAN PLATELET VOLUME 10.4 fl (7.4-10.4); MONO # 0.9 (0.1-0.6); MONO % 11.6 % (1.7-9.3); RED BLOOD COUNT 2.84 M/mm3 (4.20-5.60); REDCELL DISTRIBUTION WIDTH-CV 16.2 % (11.5-14.5)
--- NOTE | 2020-10-01 06:30 | NUR ---
PT LAYING IN BED AT THIS TIME. HAS COME C/O PAIN IN THE SCROTAL AREA. PT'S SCROTUM AND PENIS ARE EDEMETOUS, AND THERE IS SOME WEEPING AROUND THE SCROTUM. PT ATTEMPTS TO URINATE, BUT IS UNABLE TO. BARRIER CREAM PLACED ON SCROTUM WELL A INTERDRY WITH A HAND TOWEL TO PROP UP SCROTUM TO DECREASE PRESSURE FROM THE BED. PT IS ALERT AND ORIENTED, HOWEVER HAS SOME MOMENTS OF CONFUSION, AND WORD FINDING ISSUES. STATES HE FEELS THOUGH HE IS DRUNK EVEN THOUGH HE KNOWS HE ISN'T. PT IS FRUSTRATED ABOUT HIS WEAKNESS. THIS RN ENCOURAGED PT TO DRINK SOME ENSURE CLEAR TO INCREASE CALORIC INTAKE. ORDERED ONE WITH HIS BREAKFAST TRAY, AND HE DID LIKE IT, WE AGREED TO HAVE ONE SENT WITH HIS MEALS. NO OTHER CONCERNS AT THIS TIME. CALL LIGHT WITHIN REACH, FALL RISK PRECAUTIONS ARE IN PLACE; BED ALARM, YELLOW GOWN, YELLOW SOCKS, SIGNS WELL THE FALL RISK WRIST BAND. ASSESSMENT COMPLETED. STUDENT NURSE, SANTOS ASSISTING FOR THE MORNING. WILL CONTINUE TO MONITOR.
[2020-10-01 06:31] LABS: ALBUMIN 2.3 gm/dL (3.5-5.0); BILIRUBIN,TOTAL 10.5 mg/dL (0.0-1.0); CALCIUM 8.5 mg/dL (8.4-10.2); CREATININE, serum 1.19 (0.66-1.25); MAGNESIUM 1.7 mg/dL (1.6-2.3); POTASSIUM 4.1 mmol/L (3.4-5.0); TOTAL PROTEIN 5.3 gm/dL (6.4-8.2)
[2020-10-01 06:42] LABS: INR 1.9 (0.8-3.0); PROTHROMBIN TIME 21.2 SECONDS (9.7-12.8)
[2020-10-01 06:48] LABS: HEMATOCRIT 24.4 % (42.0-52.0); HEMOGLOBIN 8.5 g/dl (13.5-18.0); MEAN CORPUSCULAR HEMOGLOBIN 30 pg (27.0-31.0)
[2020-10-01 06:51] LABS: PLATELET COUNT 38 K/mm3 (130-400)
[2020-10-01 08:40] VITALS: BP 124/83; PULSE 111; TEMP 97.5
[2020-10-01 09:37] LABS: A1A PHENOTYPE 122 mg/dL (())
--- NOTE | 2020-10-01 09:43 | NUR ---
PT C/O PAIN AT THE RIGHT FOREARM INT, THIS SITE IS PAINFUL WITH FLUSHING. D/T PT HAVING THE CENTRAL LINE AT THE LEFT FEMORAL SITE, THIS RN WILL REMOVE THE INT. NO OTHER CONCERNS AT THIS TIME.
--- NOTE | 2020-10-01 10:37 | NUR ---
Initial visit; Patient and his family about to have a family meeting. Sales Representative Wire Rope offered God's blessings and let them know of the availability of Spiritual Care at [facility].
--- NOTE | 2020-10-01 10:46 | NUR ---
Family meeting run by Dr Angel with patient, Marie and two sons at bedside. Aggressive care and comfort cares were discussed along with treatment options. Family will discuss among themselves and let us know their decision but are hoping to decide later today. Referral packet was sent to [facility] per their approval and they have already spoken with Isabel at [facility] about visitor limitations. Family was encouraged to take the time they need to make a clear decision. Marie is reluctant to take pt home with all of his medical concerns and 24/7 care requirements.
[2020-10-01 11:12] VITALS: BP 115/75; PULSE 119; TEMP 98.1
--- NOTE | 2020-10-01 14:22 | NUR ---
Juice Packaging Machines Setter attended family meeting which included patient's , Marie and their two sons. Hospitalist reviewed goals of care then went over options for agressive care vs hospice care. Family is interested in the [facility] but wants to discuss options as a family. Nora Palliative RN faxed referral to Iasbel at [facility]. MARISSA was notified later in the afternoon by RAKESH Zeng that patient decided to go comfort care. Patient's and sons are touring the [facility] today at 1600. Tentative discharge will be tomorrow pending everything goes well with the tour. MARISSA contacted Isabel who advised they could likely admit tomorrow afternoon. MARISSA will follow up with Isabel in the morning.
--- NOTE | 2020-10-01 21:00 | NUR ---
PATIENT RECEIVED WEAK IN BED IN THE ROOM.PAIN MEDS GIVEN.GIVEN WARM BLANKETS AND LEFT COMFORTABLE.
--- NOTE | 2020-10-02 01:33 | NUR ---
PATIENT HAS N/V ZOFRAN IV GIVEN.REPORTED OF PAIN MORPHINE GIVEN
--- NOTE | 2020-10-02 06:12 | NUR ---
PATIENT REMAINS WEAK,ON COMFORT CARE.MEDS GIVEN PER SEP.RELATIVE INATTENDANCE.REPORTED OF CHOKING SECRETIONS NIGHT PROVIDER ORDERED SCOPOLAMINE PATCH.WAS PUYT ON BEHIND THE RT EAR.PATIENT LEFT COMFORTABLE.
--- NOTE | 2020-10-02 07:34 | NUR ---
PATIENT SHIFT ASSESSMENT COMPLETED BY THIS NURSE AND SN SHIELA. PATIENT IS MINIMALLY RESPONSIVE. AUDIBLE GURGLING HEARD FROM DOOR WHEN OPENED. PATIENT GIVEN PRN ROXANOL FOR AIR HUNGER AND COMFORT. PRESENT AT THE BEDSIDE. WILL CONTINUE TO MONITOR.
[2020-10-02] MEDS ORDERED: RT ALBUTER2.5 MG/0.5 IH (09:32)
[2020-10-02] MEDS ORDERED: ROXANOL 20MG20 MG/ML SL (09:32)
[2020-10-02] MEDS ORDERED: ATROPINE 2 ML2 ML SL (09:33)
[2020-10-02] MEDS ORDERED: ATIVAN 1MG T1 MG/TAB PO (09:33)
[2020-10-02] MEDS ORDERED: SYSTANE 0.3-0.1 EACH OP (09:34)
[2020-10-02] MEDS ORDERED: ZOFRAN ODT4 MG PO (09:34)
--- NOTE | 2020-10-02 09:34 | NUR ---
Pt and his are asleep in dark room at this check. Plan to transport to [facility] at 1330 today. Did request atropine drops for secretion management.
[2020-10-02] MEDS ORDERED: TRANSDERM-0.5 MG/21 TD (09:37)
--- NOTE | 2020-10-02 10:42 | NUR ---
PATIENT GIVEN ATROPINE AND ROXANOL AT THIS TIME. SONS PRESENT IN THE ROOM. FAMILY EDUCATED ON PROCESSES AND GIVEN AN OPPORTUNITY TO ASK QUESTIONS. FAMILY DENIES ANY FURTHER NEEDS AT THIS TIME.
--- NOTE | 2020-10-02 11:00 | NUR ---
THIS NURSE NOTIFIED THAT THE FAMILY IS REPORTING THE PATIENT PASSED. CONFIRMED WITH JAYLEEN GARCIA RN AND THIS NURSE. DRILL OPERATOR AUTOMATIC, PHYSICAN, ELECTRON BEAM WELDING MACHINE OPERATOR KEN, AND ONCOLOGY NURSE NOTIFIED. SONS PRESENT IN THE ROOM AT THE BEDSIDE.
--- NOTE | 2020-10-02 11:26 | NUR ---
Follow-up visit; ministered to and prayed with patient's sons following his . Family awaiting mom and possible other family members.
--- NOTE | 2020-10-02 11:36 | NUR ---
Call placed to [facility]. Patient is a candidate for donation of skin/eyes. Transplant center ask after family leaves to make them aware and they will be contact with family. Per [facility]; will place saline in eyes and ice to torso; groin and under arms. Primary nurse made aware of instructions. Will await family leave to continue.
--- NOTE | 2020-10-02 11:40 | NUR ---
Patient's number [phone].
--- NOTE | 2020-10-02 12:05 | NUR ---
Two sons are at bedside and are waiting for Sid's to come. I did call Marie and she reports that she is now here in the hospital. Support providedto both sons and to per phone call.
--- NOTE | 2020-10-02 14:31 | NUR ---
Flyer Repairer had made arrangements for patient to discharge to [facility] today. Around late morning, MARISSA was notified by RNZainab that patient had passed. MARISSA notified Isabel at [facility]. MARISSA and Rehabilitation Counselor Mahsa offered emotional support. Patient's family at [facility] and selected [facility] home. MARISSA notifed Supervisor Diagnostic of home. MARISSA contacted MARISSA Camacho at the [facility] to notify her of patient's passing.
--- NOTE | 2020-10-02 17:30 | NUR ---
Call recieved from [facility] that patient was not a canidate for donation due to neurological problems from his time in [place]; per family. They have released body to the home. AbdirashidCandi made aware of patients and request from family to pickle sorter patient. They will be here in the next half hour or so. Patient's nurse made aware.
--- NOTE | 2020-10-02 18:45 | NUR ---
PATIENTS BODY RELEASED TO [facility].
[2020-10-05 15:54] LABS: ALPHA 1 ANTITRYPSIN TOTAL SS bands (())
== END 2020-10-02 18:45 | disposition expired | DRG 682 ==
LOC: COL.ER 10:38 → MEDICAL 11:45 → ICU 09-27 20:39 → MEDICAL 09-30 17:55
PROVIDERS: Hospitalist; Internal Medicine Gastroenterology; Internal Medicine Pulmonary Disease; Nurse Practitioner Family; Nurse Practitioner Primary Care; Physician Assistant; Student in an Organized Health Care Education/Training Program; Surgery; ADMIT Internal Medicine
PROC: 02HV33Z Insertion of Infusion Device into Superior Vena Cava, Percutaneous Approach (ICD-10-PCS; principal; 2020-09-27 22:30)
PROC: 06L38CZ Occlusion of Esophageal Vein with Extraluminal Device, Via Natural or Artificial Opening Endoscopic (ICD-10-PCS; 2020-09-27 22:30)
DX: N17.9 Acute kidney failure, unspecified (principal); E43 Unspecified severe protein-calorie malnutrition; I85.11 Secondary esophageal varices with bleeding; K29.31 Chronic superficial gastritis with bleeding; E87.1 Hypo-osmolality and hyponatremia; K86.1 Other chronic pancreatitis; R18.8 Other ascites; Z51.5 Encounter for palliative care; Z66 Do not resuscitate; K76.6 Portal hypertension; K92.0 Hematemesis; D68.4 Acquired coagulation factor deficiency; I95.9 Hypotension, unspecified; I10 Essential (primary) hypertension; Z20.822 Contact with and (suspected) exposure to COVID-19; K21.9 Gastro-esophageal reflux disease without esophagitis; E87.5 Hyperkalemia; E87.8 Other disorders of electrolyte and fluid balance, not elsewhere classified; K74.60 Unspecified cirrhosis of liver; R73.9 Hyperglycemia, unspecified; H81.09 Meniere's disease, unspecified ear; E83.51 Hypocalcemia; K31.89 Other diseases of stomach and duodenum; R74.01 Elevation of levels of liver transaminase levels; D69.6 Thrombocytopenia, unspecified; F41.9 Anxiety disorder, unspecified; F32.9 Major depressive disorder, single episode, unspecified; D72.829 Elevated white blood cell count, unspecified; R25.1 Tremor, unspecified; Z79.891 Long term (current) use of opiate analgesic; Z88.8 Allergy status to other drugs, medicaments and biological substances; Z87.891 Personal history of nicotine dependence
CPT/HCPCS: 99223-AI; 99232-AI; 99233-AI; C9113; J1940; J2060; J2250; J2270; J2354; J2370; J2405; J2543; J2704; J3010; J3430; J3480; J7030; J7040; J7060; J7131; P9016; P9035; P9047